=== PATIENT | female | born 1945 | race Caucasian/White ===

== ENCOUNTER 2017-04-20 13:00 | Outpatient (RCR) | payer MEDICARE, OTHER, SELFPAY | END 2017-04-27 23:59 | LOC: DC 13:00 | PROVIDERS: Family Provider Family Medicine; PCP Family Medicine; Visit Provider Family Medicine | DX: E11.9 Type 2 diabetes mellitus without complications (principal); Z71.3 Dietary counseling and surveillance | CPT/HCPCS: 97802; 97803 ==

== ENCOUNTER 2017-04-28 14:50 | Outpatient (RCR) | payer MEDICARE, OTHER, SELFPAY | END 2017-05-28 23:59 | LOC: DC 14:50 | PROVIDERS: Family Provider Family Medicine; PCP Family Medicine; Visit Provider Family Medicine | DX: E11.9 Type 2 diabetes mellitus without complications (principal); Z71.3 Dietary counseling and surveillance | CPT/HCPCS: G0109 ==

== ENCOUNTER 2017-05-03 08:14 | Emergency (ER) | payer MEDICARE, OTHER, SELFPAY ==
[2017-05-03 08:14] VITALS: BP 133/83; PULSE 110; RESP 16; TEMP 36.6; O2SAT 97; BMI 29.5
--- NOTE | 2017-05-03 08:19 | EKG12_ITS ---
Test Reason : GENERAL ILLNESS Blood Pressure : / mmHG Vent. Rate : 096 BPM Atrial Rate : 096 BPM P-R Int : 140 ms QRS Dur : 068 ms QT Int : 360 ms P-R-T Axes : 056 053 057 degrees QTc Int : 454 ms Normal sinus rhythm Nonspecific ST abnormality Abnormal ECG Confirmed by ZACHERY AMEZCUA, KEVIN ([id number]), proposal editor MIGUE JOY ([id number]) on 05/06/2017 2:46:07 PM Referred By: Omar Bryant Confirmed By:KEVIN BINGHAM MD
--- NOTE | 2017-05-03 08:19 | RAD_ITS ---
STUDY: X-RAY CHEST REASON FOR EXAM: Female, 72 years old. Nausea and diaphoresis. TECHNIQUE: Single AP portable view of the chest. COMPARISON: None. FINDINGS: Hyperinflation. There is no demonstrated pleural abnormality. Normal size heart. Normal mediastinum and sangeeta. Normal visualized pulmonary arteries. Normal visualized aortic arch and descending thoracic aorta. There are diffuse degenerative changes of the visualized thoracic spine. Normal visualized ribs, clavicles, and shoulders. There is no demonstrated abnormality of the visualized soft tissue structures of the upper abdomen. RAD/Chest 1 View (Portable) IMPRESSION: Hyperinflation. Electronically Signed: Maximiliano Norris MD at 9:00 EST Tel [phone], Service support ,
--- NOTE | 2017-05-03 08:23 | NURSING ---
NO OLD EKGS
--- NOTE | 2017-05-03 08:32 | ED.VISSUMM ---
- ER Visit Summary Date of Service: 05/03/17 Chief Complaint: [] Vomiting since starting metformin in January History of Present Illness: The patient is a 72 F [] history of diabetes hypertension anxiety back surgery in February. She indicates she basically was started on metformin in January when up to what sounds like 1500 mg's a day she experienced almost immediate sense of vomiting reflux she felt was intolerance to metformin. Her doctor stopped metformin start her on Januvia, she had some was some of the Januvia that was stopped. Then they told her to start the metformin again but at a lower dose she did that and she indicates she has persistent sense of reflux and vomiting she indicates her physicians are not willing to readjust her meds. She has had normal bowel bladder habits. She has no history of GA PE DVT and history of GI elements hepatobiliary dysfunction. Her blood sugars are generally in the appropriate range she has no other past history. She presents because of the persistence of the symptoms Physical Examination: [] Vital signs are unremarkable she is resting comfortably in the bed head neck unremarkable lungs are clear heart tones are normal the abdomen soft nontender upper lower extremities unremarkable neurologically awake moving all 4 Test Results: [] Emergency Department Course and Treatment: [] She has never had a colonoscopy EGD or any type of a GI workup for all the above given her complaints screening labs and studies are obtained IV fluids Zofran Patient studies are all generally unremarkable see those reports potassium was slightly low at 3.0 she was given oral supplements without difficulty IV fluids screening labs generally unremarkable otherwise, CT of the abdomen showed considerable residual fecal material nothing acute see that report There is no signs of DKA her blood sugars about 200 she did stop the metformin about 2 or 3 days ago Conversation with her and her family the patient is indicating that she wants a referral to a new primary care physician as the current position she is seeing she feels is not paying attention to her symptoms and her concerns. At this time she is convinced that the metformin is causing some of her symptoms I explained her there may be other underlying causes if she wants to stop the metformin she should monitor her blood sugar daily, take at least a small dose of metformin if the blood sugar is very high contact her physicians or return to the emergency department should her symptoms change or intensify, in addition she is referred to the diabetic nurse practitioner in the area, and the [place] on-call primary care service , she will consider using high-fiber food prune-juice MiraLAX for the CT finding of considerable fecal material, I further explained her she may require more definitive GI management given all of her complaints and she will pursue that through the new primary care physician she is referred to and does not want a GI referral right now Treatment Plan: [] Disposition: [] Stable home Impression: [] Nausea and vomiting, concern for intolerance to metformin This note was generated with [employer] dictation software. It may contain incorrect words, spelling, and punctuation that were not noted in review of the chart prior to signing ED Disposition - Plan for ED Patient: Chief Complaint: General Illness Referrals: Omar Bryant MD [Primary Care Provider] -
--- NOTE | 2017-05-03 08:37 | CT_ITS ---
STUDY: CT ABDOMEN AND PELVIS WITHOUT CONTRAST REASON FOR EXAM: Female, 72 years old. Nausea and diaphoresis. Difficulty urinating. RADIATION DOSAGE (If Supplied By Facility): CTDIvol = ( 11.02 ) mGy, DLP = ( 506.60 ) mGycm TECHNIQUE: Transaxial images were obtained from the dome of the diaphragm to the symphysis pubis without oral contrast, and without intravenous contrast. Sagittal and coronal images were reconstructed. Individualized dose optimization techniques were used for this CT. COMPARISON: None. FINDINGS: The visualized lung bases are unremarkable. Minimal anterior pericardial thickening. Coronary artery calcification. Normal liver. Normal gallbladder and extrahepatic biliary system. Normal spleen. 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 Normal pancreas. There is a small, circumscribed, smooth, low attenuation left adrenal mass, consistent with an adrenal adenoma. It measures 2.9 sinus by 1.5 cm. Normal right adrenal gland. Normal right kidney. Normal left kidney. Normal visualized stomach. Normal small intestine. There are multiple colonic diverticula consistent with diverticulosis. Moderate amount of fecal material is seen in the colon. The appendix is visualized and appears normal. There is diffuse atherosclerotic calcification of the abdominal aorta and its major visceral branches, without a demonstrated aneurysm. Normal inferior vena cava. Normal retroperitoneum. Normal urinary bladder. Normal abdominal wall. There are diffuse degenerative changes of the visualized lumbar spine. The patient is status post L4-L5 laminectomy and interpedicular screw fixation. CT/Abdomen/Pelvis without Cont IMPRESSION: Minimal anterior pericardial thickening. Sigmoid diverticulosis. Moderate amount of fecal material is seen in the colon. Electronically Signed: Maximiliano Norris MD at 9:39 EST Tel [phone], Service support ,
[2017-05-03] MEDS: Ondansetron 4 MG/2 ML Vial IV (08:43)
[2017-05-03 08:45] LABS: Absolute Lymphocyte Count 1.66 X10^3/ul (0.83-4.51); Basophil# 0.02 X10^3/uL; Basophil% 0.2 % (0-1); Eosinophil# 0.02 X10^3/uL; Eosinophils% 0.2 % (0-5); Hematocrit 37.7 % (37-47); Hemoglobin 13.4 g/dl (12.0-15.0); Lymphocyte # 1.66 X10^3/ul (4.0); Lymphocyte % 15.6 % (19-41); Mean Corp Hgb Conc 35.5 g/gl (32-36); Mean Corpuscular Hgb 31.1 pg (27.0-32.0); Mean Corpuscular Volume 87.5 fL (81-99); Mean Platelet Vol. 10.4 fl (6.2-12.0); Monocyte# 0.94 X10^3/uL; Monocyte% 8.9 % (0-10); Neutrophil # 7.95 X10^3/uL (2.7-7.7); Neutrophil % 74.9 % (47-70); Platelet Count 267 K/mm3 (150-450); RBC Distribution Width CV 12.6 % (11.6-14.6); RBC Distribution Width SD 39.4 fl (35.1-43.9); Red Blood Count 4.31 M/mm3 (4.2-5.4); White Blood Count 10.6 K/mm3 (4.4-11.0)
[2017-05-03 08:46] LABS: POSITIVE COUNT NO; POSITIVE DIFFERENTIAL NO; POSITIVE MORPHOLOGY NO
[2017-05-03 09:00] LABS: AST(SGOT) 10 U/L (15-37); Alanine Aminotransfer ALT/SGPT 14 U/L (13-56); Albumin, Serum 3.5 g/dL (3.2-5.0); Alkaline Phosphatase 33 U/L (45-117); Anion Gap 11 (5-15); BUN 21 mg/dL (7-18); BUN/Creat Ratio 25.8 RATIO (10-20); Bilirubin, Direct 0.13 mg/dL (0.00-0.30); Calcium,Total 8.4 mg/dL (8.5-10.1); Chloride 100 mmol/L (98-107); Creatinine, Serum 0.81 mg/dL (0.55-1.02); EST Glomerular Filtration Rate 74 mL/min (>60); Est Glom Filt Rate - Afr Amer 89 mL/min (>60); Estimated Creatinine Clearance 50.38 ml/min; Globulin 3.8 g/dL (2.2-4.2); Glucose 190 mg/dL (74-106); Lipase 160 U/L (73-393); Protein, Total 7.3 g/dL (6.4-8.2); Sodium Level 136 mmol/L (136-145)
[2017-05-03 09:47] LABS: Mucous, Urine 0 SEEN /hpf (<or=2+); Red Blood Cells-Urine 0 SEEN /hpf (0-5); Squamous Epithelial Cells - UA 0 SEEN /hpf (5-10); White Blood Cells 0 SEEN /hpf (0-5)
[2017-05-03 09:50] LABS: Color, Urine Yellow (Yellow); Glucose, Dipstick Normal (Normal); Ketone-Dipstick 15 mg/dl (Negative); Leukocyte Esterase-Dipstick Negative /ul (Negative); Nitrite-Dipstick Negative (Negative); Occult Blood-Urine Negative /ul (Negative); Protein-Dipstick Negative (Negative); Specific Gravity, Urine 1.005 (1.002-1.030); Urine Bilirubin Dipstick Negative (Negative); Urine Clarity Clear (Clear); Urine Urobilinogen Normal (Normal)
[2017-05-03 10:02] LABS: Bacteria RARE /hpf (None Seen)
[2017-05-03 10:24] VITALS: BP 128/82; PULSE 85; RESP 16; O2SAT 98
--- NOTE | 2017-05-03 11:10 | ED.DEP ---
ED Disposition - Plan for ED Patient: Chief Complaint: General Illness Instructions: ED Diet Vomiting Diarrhea, Abdominal Pain Prescriptions: Ondansetron [Zofran Odt] 4 mg PO Q8H PRN PRN #10 tab PRN Reason: Nausea Referrals: Omar Bryant MD [Primary Care Provider] - Jacey Arcos MD [COURTESY STAFF PHYSICIAN] - Kendra Granger NP-C [Nurse Practitioner] -
== END 2017-05-03 11:50 | disposition home or self-care (01) ==
PROVIDERS: Emergency Provider Emergency Medicine; Family Provider Family Medicine; PCP Family Medicine
DX: R11.2 Nausea with vomiting, unspecified (principal); E11.9 Type 2 diabetes mellitus without complications; I10 Essential (primary) hypertension; F41.9 Anxiety disorder, unspecified; R10.9 Unspecified abdominal pain
CPT/HCPCS: 71045; 74176; 80048; 80076; 81001; 83690; 85025; 93005; 96361; 96374; 99284; J7030; J7040; J2405

== ENCOUNTER 2017-05-05 08:27 | Inpatient (IN) | payer MEDICARE, OTHER, SELFPAY ==
[2017-05-05] VITALS (24 sets, daily range): BP systolic 69–146; BP diastolic 45–102; PULSE 75–112; RESP 14–22; TEMP 36.2–36.7; O2SAT 95–100; BMI 31.1; BMI 30.5
--- NOTE | 2017-05-05 08:42 | EKG12_ITS ---
Test Reason : SYNCOPE Blood Pressure : / mmHG Vent. Rate : 092 BPM Atrial Rate : 092 BPM P-R Int : 136 ms QRS Dur : 072 ms QT Int : 396 ms P-R-T Axes : 068 066 051 degrees QTc Int : 489 ms Normal sinus rhythm Normal ECG Confirmed by ANGELI FLORES ([id number]), development editor MIGUE JOY ([id number]) on 05/09/2017 1:47:00 PM Referred By: Omar Bryant Confirmed By:ANGELI FLORES
--- NOTE | 2017-05-05 08:42 | RAD_ITS ---
STUDY: X-RAY CHEST REASON FOR EXAM: Female, 72 years old. Syncopal episode. Hypotension. TECHNIQUE: Single AP portable view of the chest. COMPARISON: Comparison is made with prior study dated May 03, 2017. FINDINGS: EKG electrodes are seen. Hyperinflation. Scattered calcified granulomas. There is no demonstrated pleural abnormality. Normal size heart. Normal mediastinum and sangeeta. Normal visualized pulmonary arteries. Normal visualized aortic arch and descending thoracic aorta. There are diffuse degenerative changes of the visualized thoracic spine. Normal visualized ribs, clavicles, and shoulders. There is no demonstrated abnormality of the visualized soft tissue structures of the upper abdomen. RAD/Chest 1 View (Portable) IMPRESSION: Hyperinflation. Electronically Signed: Maximiliano Norris MD at 9:08 EST Tel [phone], Service support ,
--- NOTE | 2017-05-05 08:47 | ED.VISSUMM ---
- ER Visit Summary Date of Service: 05/05/17 Chief Complaint: Passed out at home History of Present Illness: The patient is a 72 F past medical history of diabetes and hypertension. Patient was seen 2 days ago in the emergency department had a negative workup. Since she has been home she has had decreased oral intake. She has had some nausea and vomiting. No diarrhea. She was constipated and then has had bowel movements with some blood mixed with her stool. She denies any hematemesis. She denies any headache or chest pain. She denies being short of breath. No fever. No significant abdominal pain. No strokelike symptoms. Today she felt lightheaded and passed out. Thinks it was only brief episode. Called family who came over and brought her to the emergency department. She denies any injuries from the fall. Physical Examination: Older female initial blood pressure 69/45. Heart rate of 112. Afebrile. Pulse ox 95%. She is awake alert. She is answering questions. H EENT exam atraumatic. Pupils are round reactive light. Dry mucous membranes. Neck nontender no lymphadenopathy full range of motion. Lungs clear to auscultation bilaterally. Heart regular rhythm no murmur rate about 100. Chest wall nontender. Abdomen soft nontender. Normal bowel sounds. No peritoneal signs. No pulsatile mass. She is moving all 4 extremities. The neurovascular intact. She has 5 out of 5 attending ambulatory care strength. Nontender no deformities in upper extremities with normal range of motion. She has normal dorsi plantarflexion of both lower extremities are neurovascularly intact with no deformities or tenderness. Normal range of motion. Back exam is nontender. Neurologically she is awake and alert without any focal motor deficits. Test Results: Seizures white count of 14.4 and H&H of 7.9 and 23. 2 days ago her hemoglobin was 13 so she has had a significant blood loss. BMP shows a potassium of 3.1. BUN of 38 and a creatinine of 1. Dehydration and upper GI bleed. Troponin normal. EKG sinus rhythm rate of 92. And chest x-ray shows no acute abnormality. Lactate is elevated also. Emergency Department Course and Treatment: Reviewed the patient's ER evaluation 2 days ago labs, CAT scan x-ray they were basically unremarkable. Treatment Plan: Clinically and by labs the patient has an upper GI bleed. She has black stool on exam. She has been given IV fluids ?2 L. She will be given Protonix IV. And she has been typed and crossed and will be transfused 2 units of packed red blood cells. I spoken both to Dr. Jose Hardin general surgery who is willing to do upper endoscopy on the patient. And also Dr. Wilson the hospitalist who admitted to the ICU. Both Dr. Wilson and myself had long discussions with the patient about admission versus transfer. Disposition: Admission Impression: Acute Syncope Acute GI bleed (upper GI bleed) Acute anemia requiring blood transfusion ?2 units Acute hypotension History of diabetes This note was generated with [employer] dictation software. It may contain incorrect words, spelling, and punctuation that were not noted in review of the chart prior to signing ED Disposition - Plan for ED Patient: Chief Complaint: Syncope Referrals: Omar Bryant MD [Primary Care Provider] -
[2017-05-05] MEDS: 0.9% Normal Saline 1,000 ML 999 ML IV ×2 (08:54)
[2017-05-05 08:57] LABS: Absolute Lymphocyte Count 2.86 X10^3/ul (0.83-4.51); Absolute Neutrophil Count 9.6 X10^3/uL (2.0-7.7); Basophil# 0.02 X10^3/uL; Basophil% 0.1 % (0-1); Eosinophil# 0.05 X10^3/uL; Eosinophils% 0.3 % (0-5); Hemoglobin 7.9 g/dl (12.0-15.0); Lymphocyte # 2.86 X10^3/ul (4.0); Lymphocyte % 19.9 % (19-41); Mean Corp Hgb Conc 34.3 g/gl (32-36); Mean Corpuscular Hgb 30.4 pg (27.0-32.0); Mean Corpuscular Volume 88.5 fL (81-99); Mean Platelet Vol. 10.7 fl (6.2-12.0); Monocyte# 1.79 X10^3/uL; Monocyte% 12.5 % (0-10); Neutrophil # 9.61 X10^3/uL (2.7-7.7); Neutrophil % 66.9 % (47-70); Platelet Count 228 K/mm3 (150-450); RBC Distribution Width CV 13.2 % (11.6-14.6); RBC Distribution Width SD 42.7 fl (35.1-43.9); White Blood Count 14.4 K/mm3 (4.4-11.0)
[2017-05-05 08:58] LABS: Differential Indicated SCAN CRITERIA MET; POSITIVE COUNT NO; POSITIVE DIFFERENTIAL YES; POSITIVE MORPHOLOGY NO
[2017-05-05 09:07] LABS: Anion Gap 12 (5-15); BUN 38 mg/dL (7-18); BUN/Creat Ratio 36.9 RATIO (10-20); Calcium,Total 7.8 mg/dL (8.5-10.1); Chloride 104 mmol/L (98-107); Creatinine, Serum 1.03 mg/dL (0.55-1.02); EST Glomerular Filtration Rate 56 mL/min (>60); Est Glom Filt Rate - Afr Amer 68 mL/min (>60); Estimated Creatinine Clearance 39.62 ml/min; Glucose 239 mg/dL (74-106); Potassium 3.1 mmol/L (3.5-5.1); Sodium Level 139 mmol/L (136-145)
[2017-05-05 09:24] LABS: Lactic Acid 3.3 mmol/L (0.4-2.0)
--- NOTE | 2017-05-05 10:14 | PCM.HP.STD ---
Problem List (1) Upper GI bleed Status: Acute (2) Acute blood loss anemia Status: Acute (3) HTN (hypertension) Status: Chronic (4) Hyperlipidemia Status: Chronic (5) DM2 (diabetes mellitus, type 2) Status: Chronic (6) Hemorrhagic shock Status: Acute (7) Syncope Status: Acute History of Present Illness Date of Admission: 05/05/17 Chief Complaint: melena The patient is a 72 year old F who has not been feeling well for the past few weeks. Patient is been having vomiting during this time. Presented to the emergency room on the 6 where she had a CAT scan of her abdomen pelvis that showed no acute process. Patient in hemoglobin at that time that was 10.4. Patient was not having any hematochezia nor melena. Over the past days since then patient has been having donte melena patient noted some blood-tinged in the bowl and patient did have a syncopal episode upon standing. Patient presented to the emergency room and hemoglobin is now 7.9, patient was hypotensive with pressure of 69/45 and patient had a lactic acid of 2.3. Patient denies any history of melena or GI bleed before. Patient denies any hematemesis nor any other bleeding diatheses. No bruising problems. Patient states that she does take 2 Naprosyn during the day and then Advil PM at night. Dr. Sutton, of general surgery was contacted through the emergency room and said they would be happy to see the patient on consultation and plan is for an EGD on the . [] Past Medical History Past Medical History (Chronic Problems): Chronic Problems HTN (hypertension) (Chronic) Hyperlipidemia (Chronic) DM2 (diabetes mellitus, type 2) (Chronic) Allergies No Known Allergies Allergy (Verified 05/05/17 08:28) Home Medications: Ambulatory Orders Medication Instructions Recorded Atenolol [Tenormin (Beta Denia)] 50 mg PO DAILY 05/03/17 Citalopram [Celexa] 20 mg PO DAILY 05/03/17 Gabapentin [Neurontin] 100 mg PO BID 05/03/17 Hydrochlorothiazide 12.5 mg PO DAILY 05/03/17 Lorazepam [Ativan] 0.5 mg PO TID 05/03/17 Potassium Chloride [Klor-Con 10 meq PO 05/03/17 Sprinkle] Sitagliptin Phosphate [Januvia] 100 mg PO DAILY 05/03/17 Zolpidem Tartrate [Ambien] 10 mg PO DAILY 05/03/17 Psychiatric History: No pertinent psych hx Smoking Status: Light Smoker (<10/day) Tobacco Use: Cigarettes Alcohol: None Drugs: None - *Family History Maternal History Items: - - No coronary artery disease Review of Systems Constitutional: Denies: Chills, Fever, Weight Change Eyes: Denies: Blurred vision, Double vision HEENT: Denies: Head Aches, Sinus Congestion, Sinus Drainage Cardiovascular: Denies: Chest Pain, Palpitations Respiratory: Denies: Cough, Shortness of breath at rest, Sputum production Gastrointestinal: Reports: Nausea, Melena, Vomiting. Denies: Abdominal Pain Genitourinary: Denies: Dysuria, Hematuria Musculoskeletal: Denies: Joint Pain, Joint Tenderness Skin: Denies: Rash, Wounds Neurological: Reports: - - Syncope. Denies: Focal weakness, Numbness, Tingling Psychiatric: Denies: Anxiety, Depression Endocrine: Denies: Change in Body Habitus, Heat/ Cold Intolerance Hematologic/ Lymphatic: Denies: Easy Bruising, Easy Bleeding, Hx of blood clot VTE Information - Inpt Only VTE Present on Admission: No VTE Mechan Device Prophylaxis: SCD's VTE Pharm Prophylaxis ordered?: No Reason prophylaxis not ordered:: Medical Contraindication Patient Problems: Active and Suspected Problems Upper GI bleed (Acute) Acute blood loss anemia (Acute) Hemorrhagic shock (Acute) Syncope (Acute) - Physical Exam General: Alert, Cooperative, No apparent distress HEENT: Atraumatic, Normocephalic Oral: Moist Mucosa, No Gingival or Mucosal Lesions/ Ulcerations Neck: No Nodes, Thyroid Normal Size and Texture Lungs: Clear to auscultation, Normal air movement, No rhonchi, No wheeze Cardiovascular: Regular rate, Regular Rhythm, Normal S1, Normal S2, No murmurs Abdomen: Bowel Sounds Present, Soft, Non Tender, Non-Distended, No Hepato-splenomegaly, Passing Flatus Extremities: No clubbing, No cyanosis, No edema, No Calf Tenderness Skin: No rashes, No breakdown Musculoskeletal: No Tenderness to Palpation of Joints or Extremities, No Muscle Wasting Neurological: Neuro grossly intact, Sensory exam intact to light touch and pain, Coordination normal Psych/Mental Status: Normal Affect, Appropriate Vital Signs Temp Pulse Resp BP Pulse Ox 36.4 C L 91 19 H 92/59 L 100 05/05/17 08:28 05/05/17 09:38 05/05/17 09:38 05/05/17 09:38 05/05/17 09:38 Oxygen Flow Rate (L/min) 2 Oxygen Delivery Method Nasal Cannula Weight: 77.111 kg Body Mass Index (BMI) 31.1 Laboratory Tests Past 24 Hrs 05/05/17 05/05/17 05/05/17 08:35 08:40 08:40 WBC 14.4 H RBC 2.60 L Hgb 7.9 L Hct 23.0 L MCV 88.5 MCH 30.4 MCHC 34.3 RDW 13.2 RDW Differential 42.7 Plt Count 228 MPV 10.7 Immature Gran % (Auto) 0.300 Neut % (Auto) 66.9 Lymph % (Auto) 19.9 Lyon % (Auto) 12.5 H Eos % (Auto) 0.3 Baso % (Auto) 0.1 Absolute Neuts (auto) 9.6 H Absolute Lymphs (auto) 2.86 Total Counted Not Reportable Differential Comment COMMENT Diff Path Review May foll Sodium 139 Potassium 3.1 L Chloride 104 Carbon Dioxide 23.0 Anion Gap 12 BUN 38 H Creatinine 1.03 H Estim Creat Clear Calc 39.62 Est GFR (MDRD) Af Amer 68 Est GFR (MDRD) Non-Af 56 L BUN/Creatinine Ratio 36.9 H Glucose 239 H Lactic Acid Calcium 7.8 L Troponin I < 0.02 Blood Type Pending Antibody Screen Pending Crossmatch See Detail 05/05/17 08:40 WBC RBC Hgb Hct MCV MCH MCHC RDW RDW Differential Plt Count MPV Immature Gran % (Auto) Neut % (Auto) Lymph % (Auto) Lyon % (Auto) Eos % (Auto) Baso % (Auto) Absolute Neuts (auto) Absolute Lymphs (auto) Total Counted Differential Comment Diff Path Review Sodium Potassium Chloride Carbon Dioxide Anion Gap BUN Creatinine Estim Creat Clear Calc Est GFR (MDRD) Af Amer Est GFR (MDRD) Non-Af BUN/Creatinine Ratio Glucose Lactic Acid 3.3 H Calcium Troponin I Blood Type Antibody Screen Crossmatch Assessment/Plan Active and Suspected Problems Upper GI bleed (Acute) Acute blood loss anemia (Acute) Hemorrhagic shock (Acute) Syncope (Acute) 1. Suspected upper GI bleed My suspicion is that may be a Kyleigh-Haynes tear the patient's recent vomiting but also could be peptic ulcer disease given the patient's utilization of 2 different NSAIDs. Protonix IV discussed with Dr. Sutton, plan is for EGD on the but may have to expedite that patient has active bleeding. I informed the patient and her family that I suspect is upper GI bleed but I cannot rule out a lower bleed though I do not feel that her diverticulosis is causing bleeding given that it is melena. I explained to him that that if something would happen the middle night the possible specialist may not be of be there as readily as it would add some other institutions and if it was a lower GI bleed we do not have the capacity to embolization of bleeding vessels. They stated that they are satisfied with staying here at this time. 2. Acute blood loss anemia Secondary to above Follow-up hemoglobins. Patient has been typed and crossed in the emergency room. 3. Hemorrhagic shock Patient did receive IV fluids in the emergency room which has improved her blood pressure Lactic acidosis is due to the shock Continue with IV fluids and monitor. Patient will be admitted to the ICU 4. DVT prophylaxis with SCDs. Prophylaxis is contraindicated in light of the acute blood loss anemia. Code Visit Inpatient E&M: 04796 Init Hosp L3
--- NOTE | 2017-05-05 10:24 | HP.PCM_ITS ---
Problem List (1) Upper GI bleed Status: Acute (2) Acute blood loss anemia Status: Acute (3) HTN (hypertension) Status: Chronic (4) Hyperlipidemia Status: Chronic (5) DM2 (diabetes mellitus, type 2) Status: Chronic (6) Hemorrhagic shock Status: Acute (7) Syncope Status: Acute History of Present Illness Date of Admission: 05/05/17 Chief Complaint: melena The patient is a 72 year old F who has not been feeling well for the past few weeks. Patient is been having vomiting during this time. Presented to the emergency room on the 6 where she had a CAT scan of her abdomen pelvis that showed no acute process. Patient in hemoglobin at that time that was 10.4. Patient was not having any hematochezia nor melena. Over the past days since then patient has been having donte melena patient noted some blood-tinged in the bowl and patient did have a syncopal episode upon standing. Patient presented to the emergency room and hemoglobin is now 7.9, patient was hypotensive with pressure of 69/45 and patient had a lactic acid of 2.3. Patient denies any history of melena or GI bleed before. Patient denies any hematemesis nor any other bleeding diatheses. No bruising problems. Patient states that she does take 2 Naprosyn during the day and then Advil PM at night. Dr. Sutton, of general surgery was contacted through the emergency room and said they would be happy to see the patient on consultation and plan is for an EGD on the . [] Past Medical History Past Medical History (Chronic Problems): Chronic Problems HTN (hypertension) (Chronic) Hyperlipidemia (Chronic) DM2 (diabetes mellitus, type 2) (Chronic) Allergies No Known Allergies Allergy (Verified 05/05/17 08:28) Home Medications: Ambulatory Orders Medication Instructions Recorded Atenolol [Tenormin (Beta Denia)] 50 mg PO DAILY 05/03/17 Citalopram [Celexa] 20 mg PO DAILY 05/03/17 Gabapentin [Neurontin] 100 mg PO BID 05/03/17 Hydrochlorothiazide 12.5 mg PO DAILY 05/03/17 Lorazepam [Ativan] 0.5 mg PO TID 05/03/17 Potassium Chloride [Klor-Con 10 meq PO 05/03/17 Sprinkle] Sitagliptin Phosphate [Januvia] 100 mg PO DAILY 05/03/17 Zolpidem Tartrate [Ambien] 10 mg PO DAILY 05/03/17 Psychiatric History: No pertinent psych hx Smoking Status: Light Smoker (<10/day) Tobacco Use: Cigarettes Alcohol: None Drugs: None - *Family History Maternal History Items: - - No coronary artery disease Review of Systems Constitutional: Denies: Chills, Fever, Weight Change Eyes: Denies: Blurred vision, Double vision HEENT: Denies: Head Aches, Sinus Congestion, Sinus Drainage Cardiovascular: Denies: Chest Pain, Palpitations Respiratory: Denies: Cough, Shortness of breath at rest, Sputum production Gastrointestinal: Reports: Nausea, Melena, Vomiting. Denies: Abdominal Pain Genitourinary: Denies: Dysuria, Hematuria Musculoskeletal: Denies: Joint Pain, Joint Tenderness Skin: Denies: Rash, Wounds Neurological: Reports: - - Syncope. Denies: Focal weakness, Numbness, Tingling Psychiatric: Denies: Anxiety, Depression Endocrine: Denies: Change in Body Habitus, Heat/ Cold Intolerance Hematologic/ Lymphatic: Denies: Easy Bruising, Easy Bleeding, Hx of blood clot VTE Information - Inpt Only VTE Present on Admission: No VTE Mechan Device Prophylaxis: SCD's VTE Pharm Prophylaxis ordered?: No Reason prophylaxis not ordered:: Medical Contraindication Patient Problems: Active and Suspected Problems Upper GI bleed (Acute) Acute blood loss anemia (Acute) Hemorrhagic shock (Acute) Syncope (Acute) - Physical Exam General: Alert, Cooperative, No apparent distress HEENT: Atraumatic, Normocephalic Oral: Moist Mucosa, No Gingival or Mucosal Lesions/ Ulcerations Neck: No Nodes, Thyroid Normal Size and Texture Lungs: Clear to auscultation, Normal air movement, No rhonchi, No wheeze Cardiovascular: Regular rate, Regular Rhythm, Normal S1, Normal S2, No murmurs Abdomen: Bowel Sounds Present, Soft, Non Tender, Non-Distended, No Hepato- splenomegaly, Passing Flatus Extremities: No clubbing, No cyanosis, No edema, No Calf Tenderness Skin: No rashes, No breakdown Musculoskeletal: No Tenderness to Palpation of Joints or Extremities, No Muscle Wasting Neurological: Neuro grossly intact, Sensory exam intact to light touch and pain , Coordination normal Psych/Mental Status: Normal Affect, Appropriate Vital Signs Temp Pulse Resp BP Pulse Ox 36.4 C L 91 19 H 92/59 L 100 05/05/17 08:28 05/05/17 09:38 05/05/17 09:38 05/05/17 09:38 05/05/17 09:38 Oxygen Flow Rate (L/min) 2 Oxygen Delivery Method Nasal Cannula Weight: 77.111 kg Body Mass Index (BMI) 31.1 Laboratory Tests Past 24 Hrs 05/05/17 05/05/17 05/05/17 08:35 08:40 08:40 WBC 14.4 H RBC 2.60 L Hgb 7.9 L Hct 23.0 L MCV 88.5 MCH 30.4 MCHC 34.3 RDW 13.2 RDW Differential 42.7 Plt Count 228 MPV 10.7 Immature Gran % (Auto) 0.300 Neut % (Auto) 66.9 Lymph % (Auto) 19.9 [place] % (Auto) 12.5 H Eos % (Auto) 0.3 Baso % (Auto) 0.1 Absolute Neuts (auto) 9.6 H Absolute Lymphs (auto) 2.86 Total Counted Not Reportable Differential Comment COMMENT Diff Path Review May foll Sodium 139 Potassium 3.1 L Chloride 104 Carbon Dioxide 23.0 Anion Gap 12 BUN 38 H Creatinine 1.03 H Estim Creat Clear Calc 39.62 Est GFR (MDRD) Af Amer 68 Est GFR (MDRD) Non-Af 56 L BUN/Creatinine Ratio 36.9 H Glucose 239 H Lactic Acid Calcium 7.8 L Troponin I < 0.02 Blood Type Pending Antibody Screen Pending Crossmatch See Detail 05/05/17 08:40 WBC RBC Hgb Hct MCV MCH MCHC RDW RDW Differential Plt Count MPV Immature Gran % (Auto) Neut % (Auto) Lymph % (Auto) [place] % (Auto) Eos % (Auto) Baso % (Auto) Absolute Neuts (auto) Absolute Lymphs (auto) Total Counted Differential Comment Diff Path Review Sodium Potassium Chloride Carbon Dioxide Anion Gap BUN Creatinine Estim Creat Clear Calc Est GFR (MDRD) Af Amer Est GFR (MDRD) Non-Af BUN/Creatinine Ratio Glucose Lactic Acid 3.3 H Calcium Troponin I Blood Type Antibody Screen Crossmatch Assessment/Plan Active and Suspected Problems Upper GI bleed (Acute) Acute blood loss anemia (Acute) Hemorrhagic shock (Acute) Syncope (Acute) 1. Suspected upper GI bleed * My suspicion is that may be a Kyleigh-Haynes tear the patient's recent vomiting but also could be peptic ulcer disease given the patient's utilization of 2 different NSAIDs. * Protonix IV discussed with Dr. Sutton, plan is for EGD on the but may have to expedite that patient has active bleeding. * I informed the patient and her family that I suspect is upper GI bleed but I cannot rule out a lower bleed though I do not feel that her diverticulosis is causing bleeding given that it is melena. I explained to him that that if something would happen the middle night the possible specialist may not be of be there as readily as it would add some other institutions and if it was a lower GI bleed we do not have the capacity to embolization of bleeding vessels. They stated that they are satisfied with staying here at this time. 2. Acute blood loss anemia * Secondary to above * Follow-up hemoglobins. Patient has been typed and crossed in the emergency room. 3. Hemorrhagic shock * Patient did receive IV fluids in the emergency room which has improved her blood pressure * Lactic acidosis is due to the shock * Continue with IV fluids and monitor. * Patient will be admitted to the ICU 4. DVT prophylaxis with SCDs. Prophylaxis is contraindicated in light of the acute blood loss anemia. Code Visit Inpatient E&M: 93966 Init Hosp L3
[2017-05-05 11:07] LABS: International Normalized Ratio 1.2; Prothrombin Time (Protime)PT. 15.5 SECONDS (11.7-14.9)
[2017-05-05] MEDS: 0.9% NaCl IVPB Med Flush (250 mL) 15 ML IV (11:12)
[2017-05-05] MEDS: 0.9% Normal Saline 1,000 ML 150 ML IV ×3 (11:12→23:53)
--- NOTE | 2017-05-05 11:13 | PCM.CON.CC ---
Problem List (1) Tobacco abuse Status: Chronic (2) Upper GI bleed Status: Acute (3) Acute blood loss anemia Status: Acute (4) HTN (hypertension) Status: Chronic Qualifiers: Hypertension type: essential hypertension Qualified Code(s): I10 - Essential (primary) hypertension (5) Hyperlipidemia Status: Chronic Qualifiers: Hyperlipidemia type: pure hypercholesterolemia Qualified Code(s): E78.00 - Pure hypercholesterolemia, unspecified; E78.0 - Pure hypercholesterolemia (6) DM2 (diabetes mellitus, type 2) Status: Chronic Qualifiers: Diabetes mellitus complication status: with unspecified complications Diabetes mellitus alf insulin use: without alf use Qualified Code(s): E11.8 - Type 2 diabetes mellitus with unspecified complications (7) Syncope Status: Acute Qualifiers: Syncope type: vasovagal syncope Qualified Code(s): R55 - Syncope and collapse Reason for Consult Date of Consultation: 05/05/17 Reason for Consultation: Acute blood loss anemia History of Present Illness: The patient is a 72 year old F, with past medical history listed below, who presented to [facility] on 05/05/2017 secondary to a syncopal event. Patient had been seen 2 days prior in the emergency room with concerns for metformin toxicity. Patient reported that she had developed some nausea and vomiting at that time, but no diarrhea. Patient was given supportive care and discharged home. Patient presented today following a syncopal event that she believes was only brief. Family was contacted and urged her to come to the emergency room for evaluation. Patient has reported nausea and vomiting, but no hematemesis. Patient has noted some darker stools recently over the last 2 days. On presentation to the emergency room, patient was initially noted to have a blood pressure of 69/45 with a heart rate of 112 bpm. Patient was noted to have dry mucous membranes with a nonfocal neurologic exam. Lab work showed a 5 g drop in hemoglobin over the last 2 days and a low potassium of 3.1. Creatinine was slightly increased compared to previous. Chest x-ray showed no acute abnormality. Patient was noted to have an elevated lactate. Patient received 2 hours of IV fluid with significant improvement in blood pressure and symptomatology. Patient was also given IV Protonix and Dr. Sutton was contacted for an upper GI. Patient was then transported to the intensive care unit for further monitoring. She denies any previous history of GI bleed. Patient does report that she regularly uses 2 Aleve every morning and 2 Advil PM every evening secondary to chronic back pain. Patient states this does control her symptoms. Patient also reports a long smoking history, but is never seen a associate account executive or had pulmonary function testing. Patient has never been admitted for breathing issues previously. Patient reports that she was recently diagnosed with diabetes and has a hemoglobin A1c of 7.9. Patient has been titrating up her metformin and recently was placed on 1.5 g. Past Medical History Past Medical History (Chronic Problems): Chronic Problems HTN (hypertension) (Chronic) Hyperlipidemia (Chronic) DM2 (diabetes mellitus, type 2) (Chronic) Tobacco abuse (Chronic) Allergies No Known Allergies Allergy (Verified 05/05/17 08:28) Home Medications: Ambulatory Orders Medication Instructions Recorded Atenolol [Tenormin (Beta Denia)] 50 mg PO DAILY 05/03/17 Citalopram [Celexa] 20 mg PO DAILY 05/03/17 Gabapentin [Neurontin] 100 mg PO BID 05/03/17 Hydrochlorothiazide 12.5 mg PO DAILY 05/03/17 Lorazepam [Ativan] 0.5 mg PO TID 05/03/17 Potassium Chloride [Klor-Con 10 meq PO 05/03/17 Sprinkle] Sitagliptin Phosphate [Januvia] 100 mg PO DAILY 05/03/17 Zolpidem Tartrate [Ambien] 10 mg PO DAILY 05/03/17 Psychiatric History: No pertinent psych hx Smoking Status: Light Smoker (<10/day) Tobacco Use: Cigarettes Alcohol: None Drugs: None - *Family History Maternal History Items: - - No coronary artery disease Review of Systems Constitutional: Reports: Malaise, Weakness, Fatigue. Denies: Anorexia, Chills, Fever, Night Sweats Eyes: Denies: Blurred vision, Cataracts, Double vision, Drainage, Eyelid Inflammation, Pain, Redness HEENT: Reports: Head Aches. Denies: Difficulty Hearing, Difficulty Swallowing, Dysphasia, Ear Pain, Hard of Hearing, Nasal bleeding, Nasal Congestion, Post Nasal Drip, Sinus Congestion, Sore Throat Cardiovascular: Reports: Syncope. Denies: Chest Pain, Chest Pressure, Chest Tightness, Edema, Heaviness, Orthopnea, Palpitations Respiratory: Denies: Cough, Pleuritic Pain, Shortness of Breath, Sputum production, Wheezing Gastrointestinal: Reports: Constipation, Nausea, Vomiting, - - Black stools noted. Denies: Hematemesis, Hematochezia Genitourinary: Denies: Dysuria, Hematuria, Hesitancy, Incontinence, Retention Gynecological: Denies: Breast symptoms, Excessively long or heavy periods Musculoskeletal: Denies: Joint stiffness, Joint swelling, Joint Tenderness Skin: Denies: Dryness, Lesions Neurological: Denies: Balance problems, Double vision, Change in Speech, Slurred speech, Confusion, Focal weakness, Incoordination, Tingling Psychiatric: Denies: Anxiety, Depression, Homicidal Ideations, Suicidal Ideations Endocrine: Denies: Change in Body Habitus, Heat/ Cold Intolerance, Polydipsia Hematologic/ Lymphatic: Denies: Adenopathy, Easy Bruising, Hx of blood clot Comment: Review of systems otherwise negative ?10 systems. Patient Problems: Active and Suspected Problems Upper GI bleed (Acute) Acute blood loss anemia (Acute) Hemorrhagic shock (Acute) Syncope (Acute) Objective: X-ray was personally reviewed and shows no acute infiltrates. - Physical Exam General: Alert, Oriented x3, Cooperative, - - Mild distress. Appears stated age. Obese. Appears pale. HEENT: Atraumatic, PERRLA, EOMI, Normocephalic, - - Pale conjunctiva Oral: No Gingival or Mucosal Lesions/ Ulcerations, Dry Mucosa Neck: Supple, No JVD, No Nodes, Trachea Midline Lungs: Clear to auscultation, No rhonchi, No wheeze, No rales, - - Symmetric expansion. Cardiovascular: Regular rate, Regular Rhythm, Normal S1, Normal S2, No murmurs, No rub noted, No Gallop Abdomen: Bowel Sounds Present, Soft, Non Tender, Non-Distended, Obese Extremities: No clubbing, No cyanosis, No edema, Capillary Refill Less than 3 Seconds Skin: No rashes, No breakdown Musculoskeletal: No Tenderness to Palpation of Joints or Extremities, No Muscle Wasting Lymphatic: No Cervical, Supraclavicular, or Inguinal Adenopathy Neurological: Cranial nerves II-XII grossly intact, Neuro grossly intact, Motor Exam 5/5 strength throughout, Sensory exam intact to light touch and pain Psych/Mental Status: Alert and oriented to time, place, person, mood and affect Vital Signs Temp Pulse Resp BP Pulse Ox 36.4 C L 88 21 H 86/65 L 100 03/08/18 08:28 05/05/17 10:13 05/05/17 10:13 05/05/17 10:13 05/05/17 10:13 Laboratory Tests 05/05/17 05/05/17 05/05/17 08:35 08:40 08:40 WBC 14.4 H RBC 2.60 L Hgb 7.9 L Hct 23.0 L MCV 88.5 MCH 30.4 MCHC 34.3 RDW 13.2 RDW Differential 42.7 Plt Count 228 MPV 10.7 Immature Gran % (Auto) 0.300 Neut % (Auto) 66.9 Lymph % (Auto) 19.9 [place] % (Auto) 12.5 H Eos % (Auto) 0.3 Baso % (Auto) 0.1 Absolute Neuts (auto) 9.6 H Absolute Lymphs (auto) 2.86 Total Counted Not Reportable Differential Comment COMMENT Diff Path Review May foll PT INR Specimen Type VBG pH VBG pO2 VBG O2 Sat (Calc) VBG O2 Content VBG Base Excess POC Mix VBG pCO2 Pt Tmp Blood Gas Notified Whom Blood Gas Notified Time Sodium 139 Potassium 3.1 L Chloride 104 Carbon Dioxide 23.0 Anion Gap 12 BUN 38 H Creatinine 1.03 H Estim Creat Clear Calc 39.62 Est GFR (MDRD) Af Amer 68 Est GFR (MDRD) Non-Af 56 L BUN/Creatinine Ratio 36.9 H Glucose 239 H Lactic Acid Calcium 7.8 L Troponin I < 0.02 Blood Type A NEGATIVE Antibody Screen NEGATIVE Crossmatch See Detail 05/05/17 05/05/17 05/05/17 08:40 08:40 11:10 WBC 12.9 H RBC 2.27 L Hgb 7.1 L Hct 20.5 L MCV 90.3 MCH 31.3 MCHC 34.6 RDW 12.7 RDW Differential 39.1 Plt Count 187 MPV 10.8 Immature Gran % (Auto) 0.300 Neut % (Auto) 81.8 H Lymph % (Auto) 10.2 L [place] % (Auto) 7.4 Eos % (Auto) 0.2 Baso % (Auto) 0.1 Absolute Neuts (auto) 10.5 H Absolute Lymphs (auto) 1.31 Total Counted Not Reportable Differential Comment Diff Path Review PT 15.5 H INR 1.2 Specimen Type VBG pH VBG pO2 VBG O2 Sat (Calc) VBG O2 Content VBG Base Excess POC Mix VBG pCO2 Pt Tmp Blood Gas Notified Whom Blood Gas Notified Time Sodium Potassium Chloride Carbon Dioxide Anion Gap BUN Creatinine Estim Creat Clear Calc Est GFR (MDRD) Af Amer Est GFR (MDRD) Non-Af BUN/Creatinine Ratio Glucose Lactic Acid 3.3 H Calcium Troponin I Blood Type Antibody Screen Crossmatch 05/05/17 11:22 WBC RBC Hgb Hct MCV MCH MCHC RDW RDW Differential Plt Count MPV Immature Gran % (Auto) Neut % (Auto) Lymph % (Auto) [place] % (Auto) Eos % (Auto) Baso % (Auto) Absolute Neuts (auto) Absolute Lymphs (auto) Total Counted Differential Comment Diff Path Review PT INR Specimen Type JOANIE VBG pH 7.30 L VBG pO2 141 H VBG O2 Sat (Calc) 99 H VBG O2 Content 25 VBG Base Excess -3 L POC Mix VBG pCO2 Pt Tmp 47.9 Blood Gas Notified Whom [facility] Blood Gas Notified Time 1121 Sodium Potassium Chloride Carbon Dioxide Anion Gap BUN Creatinine Estim Creat Clear Calc Est GFR (MDRD) Af Amer Est GFR (MDRD) Non-Af BUN/Creatinine Ratio Glucose Lactic Acid Calcium Troponin I Blood Type Antibody Screen Crossmatch Clinical Impression(s) from Imaging Studies Chest X-Ray 05/05/17 08:42 IMPRESSION: Hyperinflation. Electronically Signed: Maximiliano Norris MD at 9:08 EST Tel [phone], Service support , Assessment/Plan Active and Suspected Problems Upper GI bleed (Acute) Acute blood loss anemia (Acute) Hemorrhagic shock (Acute) Syncope (Acute) RECOMMENDATIONS: 1. Transfusions as ordered 2. H&H every 6 hours, obtain coagulation studies now 3. Fluid boluses as necessary 4. Repeat lactate, blood sugar checks with sliding scale insulin 5. Bronchodilators as needed, hold all home NSAIDs IMPRESSIONS: 1. Hemorrhagic shock secondary to suspected upper GI bleed Exact etiology is unclear at this time. Patient has had no hematemesis, so clinical suspicion is for duodenal ulcer with bleeding. Current H&H is 5 g below 2 days ago indicating significant bleeding. Will obtain regulation studies to make sure patient does not have a consumptive coagulopathy. Repeat H&H's every 6 hours until EGD. Patient is on IV Protonix. 2. Acute blood loss anemia secondary to suspected upper GI bleed Patient with significant drop in hemoglobin over the last 2 days. However, patient is not reporting hematemesis or hematochezia. Will continue to monitor closely with H&H's. Did discuss with surgery and patient can be emergently scoped if necessary, but currently EGD is planned for tomorrow around 10 AM. Patient has no anabaptism convictions against blood transfusions. Will attempt to keep hemoglobin greater than 8. 3. Acute kidney injury/hypokalemia Likely prerenal etiology. Patient has received fluid with good response in blood pressure. We will continue to monitor closely. Potassium supplementation as indicated. 4. Advanced age/long smoking history/diabetes mellitus Patient does have an element of hyperinflation noted on chest x-ray. Patient may benefit from aerosol therapy if shortness of breath develops. Will hold diabetic medications. Patient can continue on sliding scale insulin with blood sugar checks. Patient would likely benefit from outpatient complete pulmonary function test. Code Visit Inpatient E&M: 98040 Init Hosp L3
[2017-05-05 11:20] LABS: Absolute Lymphocyte Count 1.31 X10^3/ul (0.83-4.51); Absolute Neutrophil Count 10.5 X10^3/uL (2.0-7.7); Basophil# 0.01 X10^3/uL; Basophil% 0.1 % (0-1); Eosinophil# 0.02 X10^3/uL; Eosinophils% 0.2 % (0-5); Hematocrit 20.5 % (37-47); Hemoglobin 7.1 g/dl (12.0-15.0); Lymphocyte # 1.31 X10^3/ul (4.0); Lymphocyte % 10.2 % (19-41); Mean Corp Hgb Conc 34.6 g/gl (32-36); Mean Corpuscular Hgb 31.3 pg (27.0-32.0); Mean Corpuscular Volume 90.3 fL (81-99); Mean Platelet Vol. 10.8 fl (6.2-12.0); Monocyte# 0.95 X10^3/uL; Monocyte% 7.4 % (0-10); Neutrophil # 10.52 X10^3/uL (2.7-7.7); Neutrophil % 81.8 % (47-70); Platelet Count 187 K/mm3 (150-450); RBC Distribution Width CV 12.7 % (11.6-14.6); RBC Distribution Width SD 39.1 fl (35.1-43.9); Red Blood Count 2.27 M/mm3 (4.2-5.4); White Blood Count 12.9 K/mm3 (4.4-11.0)
[2017-05-05 11:21] LABS: POSITIVE COUNT NO; POSITIVE DIFFERENTIAL NO; POSITIVE MORPHOLOGY NO
--- NOTE | 2017-05-05 11:25 | CON.PCM_ITS ---
Problem List (1) Tobacco abuse Status: Chronic (2) Upper GI bleed Status: Acute (3) Acute blood loss anemia Status: Acute (4) HTN (hypertension) Status: Chronic Qualifiers: Hypertension type: essential hypertension Qualified Code(s): I10 - Essential (primary) hypertension (5) Hyperlipidemia Status: Chronic Qualifiers: Hyperlipidemia type: pure hypercholesterolemia Qualified Code(s): E78.00 - Pure hypercholesterolemia, unspecified; E78.0 - Pure hypercholesterolemia (6) DM2 (diabetes mellitus, type 2) Status: Chronic Qualifiers: Diabetes mellitus complication status: with unspecified complications Diabetes mellitus alf insulin use: without alf use Qualified Code( s): E11.8 - Type 2 diabetes mellitus with unspecified complications (7) Syncope Status: Acute Qualifiers: Syncope type: vasovagal syncope Qualified Code(s): R55 - Syncope and collapse Reason for Consult Date of Consultation: 05/05/17 Reason for Consultation: Acute blood loss anemia History of Present Illness: The patient is a 72 year old F, with past medical history listed below, who presented to [facility] on 05/05/2017 secondary to a syncopal event. Patient had been seen 2 days prior in the emergency room with concerns for metformin toxicity. Patient reported that she had developed some nausea and vomiting at that time, but no diarrhea. Patient was given supportive care and discharged home. Patient presented today following a syncopal event that she believes was only brief. Family was contacted and urged her to come to the emergency room for evaluation. Patient has reported nausea and vomiting, but no hematemesis. Patient has noted some darker stools recently over the last 2 days. On presentation to the emergency room, patient was initially noted to have a blood pressure of 69/45 with a heart rate of 112 bpm. Patient was noted to have dry mucous membranes with a nonfocal neurologic exam. Lab work showed a 5 g drop in hemoglobin over the last 2 days and a low potassium of 3.1. Creatinine was slightly increased compared to previous. Chest x-ray showed no acute abnormality. Patient was noted to have an elevated lactate. Patient received 2 hours of IV fluid with significant improvement in blood pressure and symptomatology. Patient was also given IV Protonix and Dr. Sutton was contacted for an upper GI. Patient was then transported to the intensive care unit for further monitoring. She denies any previous history of GI bleed. Patient does report that she regularly uses 2 Aleve every morning and 2 Advil PM every evening secondary to chronic back pain. Patient states this does control her symptoms. 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 Patient has never been admitted for breathing issues previously. Patient reports that she was recently diagnosed with diabetes and has a hemoglobin A1c of 7.9. Patient has been titrating up her metformin and recently was placed on 1.5 g. Past Medical History Past Medical History (Chronic Problems): Chronic Problems HTN (hypertension) (Chronic) Hyperlipidemia (Chronic) DM2 (diabetes mellitus, type 2) (Chronic) Tobacco abuse (Chronic) Allergies No Known Allergies Allergy (Verified 05/05/17 08:28) Home Medications: Ambulatory Orders Medication Instructions Recorded Atenolol [Tenormin (Beta Denia)] 50 mg PO DAILY 05/03/17 Citalopram [Celexa] 20 mg PO DAILY 05/03/17 Gabapentin [Neurontin] 100 mg PO BID 05/03/17 Hydrochlorothiazide 12.5 mg PO DAILY 05/03/17 Lorazepam [Ativan] 0.5 mg PO TID 05/03/17 Potassium Chloride [Klor-Con 10 meq PO 05/03/17 Sprinkle] Sitagliptin Phosphate [Januvia] 100 mg PO DAILY 05/03/17 Zolpidem Tartrate [Ambien] 10 mg PO DAILY 05/03/17 Psychiatric History: No pertinent psych hx Smoking Status: Light Smoker (<10/day) Tobacco Use: Cigarettes Alcohol: None Drugs: None - *Family History Maternal History Items: - - No coronary artery disease Review of Systems Constitutional: Reports: Malaise, Weakness, Fatigue. Denies: Anorexia, Chills, Fever, Night Sweats Eyes: Denies: Blurred vision, Cataracts, Double vision, Drainage, Eyelid Inflammation, Pain, Redness HEENT: Reports: Head Aches. Denies: Difficulty Hearing, Difficulty Swallowing, Dysphasia, Ear Pain, Hard of Hearing, Nasal bleeding, Nasal Congestion, Post Nasal Drip, Sinus Congestion, Sore Throat Cardiovascular: Reports: Syncope. Denies: Chest Pain, Chest Pressure, Chest Tightness, Edema, Heaviness, Orthopnea, Palpitations Respiratory: Denies: Cough, Pleuritic Pain, Shortness of Breath, Sputum production, Wheezing Gastrointestinal: Reports: Constipation, Nausea, Vomiting, - - Black stools noted. Denies: Hematemesis, Hematochezia Genitourinary: Denies: Dysuria, Hematuria, Hesitancy, Incontinence, Retention Gynecological: Denies: Breast symptoms, Excessively long or heavy periods Musculoskeletal: Denies: Joint stiffness, Joint swelling, Joint Tenderness Skin: Denies: Dryness, Lesions Neurological: Denies: Balance problems, Double vision, Change in Speech, Slurred speech, Confusion, Focal weakness, Incoordination, Tingling Psychiatric: Denies: Anxiety, Depression, Homicidal Ideations, Suicidal Ideations Endocrine: Denies: Change in Body Habitus, Heat/ Cold Intolerance, Polydipsia Hematologic/ Lymphatic: Denies: Adenopathy, Easy Bruising, Hx of blood clot Comment: Review of systems otherwise negative ?10 systems. Patient Problems: Active and Suspected Problems Upper GI bleed (Acute) Acute blood loss anemia (Acute) Hemorrhagic shock (Acute) Syncope (Acute) Objective: X-ray was personally reviewed and shows no acute infiltrates. - Physical Exam General: Alert, Oriented x3, Cooperative, - - Mild distress. Appears stated age. Obese. Appears pale. HEENT: Atraumatic, PERRLA, EOMI, Normocephalic, - - Pale conjunctiva Oral: No Gingival or Mucosal Lesions/ Ulcerations, Dry Mucosa Neck: Supple, No JVD, No Nodes, Trachea Midline Lungs: Clear to auscultation, No rhonchi, No wheeze, No rales, - - Symmetric expansion. Cardiovascular: Regular rate, Regular Rhythm, Normal S1, Normal S2, No murmurs, No rub noted, No Gallop Abdomen: Bowel Sounds Present, Soft, Non Tender, Non-Distended, Obese Extremities: No clubbing, No cyanosis, No edema, Capillary Refill Less than 3 Seconds Skin: No rashes, No breakdown Musculoskeletal: No Tenderness to Palpation of Joints or Extremities, No Muscle Wasting Lymphatic: No Cervical, Supraclavicular, or Inguinal Adenopathy Neurological: Cranial nerves II-XII grossly intact, Neuro grossly intact, Motor Exam 5/5 strength throughout, Sensory exam intact to light touch and pain Psych/Mental Status: Alert and oriented to time, place, person, mood and affect Vital Signs Temp Pulse Resp BP Pulse Ox 36.4 C L 88 21 H 86/65 L 100 03/08/18 08:28 05/05/17 10:13 05/05/17 10:13 05/05/17 10:13 05/05/17 10:13 Laboratory Tests 05/05/17 05/05/17 05/05/17 08:35 08:40 08:40 WBC 14.4 H RBC 2.60 L Hgb 7.9 L Hct 23.0 L MCV 88.5 MCH 30.4 MCHC 34.3 RDW 13.2 RDW Differential 42.7 Plt Count 228 MPV 10.7 Immature Gran % (Auto) 0.300 Neut % (Auto) 66.9 Lymph % (Auto) 19.9 [place] % (Auto) 12.5 H Eos % (Auto) 0.3 Baso % (Auto) 0.1 Absolute Neuts (auto) 9.6 H Absolute Lymphs (auto) 2.86 Total Counted Not Reportable Differential Comment COMMENT Diff Path Review May foll PT INR Specimen Type VBG pH VBG pO2 VBG O2 Sat (Calc) VBG O2 Content VBG Base Excess POC Mix VBG pCO2 Pt Tmp Blood Gas Notified Whom Blood Gas Notified Time Sodium 139 Potassium 3.1 L Chloride 104 Carbon Dioxide 23.0 Anion Gap 12 BUN 38 H Creatinine 1.03 H Estim Creat Clear Calc 39.62 Est GFR (MDRD) Af Amer 68 Est GFR (MDRD) Non-Af 56 L BUN/Creatinine Ratio 36.9 H Glucose 239 H Lactic Acid Calcium 7.8 L Troponin I < 0.02 Blood Type A NEGATIVE Antibody Screen NEGATIVE Crossmatch See Detail 05/05/17 05/05/17 05/05/17 08:40 08:40 11:10 WBC 12.9 H RBC 2.27 L Hgb 7.1 L Hct 20.5 L MCV 90.3 MCH 31.3 MCHC 34.6 RDW 12.7 RDW Differential 39.1 Plt Count 187 MPV 10.8 Immature Gran % (Auto) 0.300 Neut % (Auto) 81.8 H Lymph % (Auto) 10.2 L [place] % (Auto) 7.4 Eos % (Auto) 0.2 Baso % (Auto) 0.1 Absolute Neuts (auto) 10.5 H Absolute Lymphs (auto) 1.31 Total Counted Not Reportable Differential Comment Diff Path Review PT 15.5 H INR 1.2 Specimen Type VBG pH VBG pO2 VBG O2 Sat (Calc) VBG O2 Content VBG Base Excess POC Mix VBG pCO2 Pt Tmp Blood Gas Notified Whom Blood Gas Notified Time Sodium Potassium Chloride Carbon Dioxide Anion Gap BUN Creatinine Estim Creat Clear Calc Est GFR (MDRD) Af Amer Est GFR (MDRD) Non-Af BUN/Creatinine Ratio Glucose Lactic Acid 3.3 H Calcium Troponin I Blood Type Antibody Screen Crossmatch 05/05/17 11:22 WBC RBC Hgb Hct MCV MCH MCHC RDW RDW Differential Plt Count MPV Immature Gran % (Auto) Neut % (Auto) Lymph % (Auto) [place] % (Auto) Eos % (Auto) Baso % (Auto) Absolute Neuts (auto) Absolute Lymphs (auto) Total Counted Differential Comment Diff Path Review PT INR Specimen Type JOANIE VBG pH 7.30 L VBG pO2 141 H VBG O2 Sat (Calc) 99 H VBG O2 Content 25 VBG Base Excess -3 L POC Mix VBG pCO2 Pt Tmp 47.9 Blood Gas Notified Whom [facility] Blood Gas Notified Time 1121 Sodium Potassium Chloride Carbon Dioxide Anion Gap BUN Creatinine Estim Creat Clear Calc Est GFR (MDRD) Af Amer Est GFR (MDRD) Non-Af BUN/Creatinine Ratio Glucose Lactic Acid Calcium Troponin I Blood Type Antibody Screen Crossmatch Clinical Impression(s) from Imaging Studies Chest X-Ray 05/05/17 08:42 IMPRESSION: Hyperinflation. Electronically Signed: Maximiliano Norris MD at 9:08 EST Tel [phone], Service support , Assessment/Plan Active and Suspected Problems Upper GI bleed (Acute) Acute blood loss anemia (Acute) Hemorrhagic shock (Acute) Syncope (Acute) RECOMMENDATIONS: 1. Transfusions as ordered 2. H&H every 6 hours, obtain coagulation studies now 3. Fluid boluses as necessary 4. Repeat lactate, blood sugar checks with sliding scale insulin 5. Bronchodilators as needed, hold all home NSAIDs IMPRESSIONS: 1. Hemorrhagic shock secondary to suspected upper GI bleed Exact etiology is unclear at this time. Patient has had no hematemesis, so clinical suspicion is for duodenal ulcer with bleeding. Current H&H is 5 g below 2 days ago indicating significant bleeding. Will obtain regulation studies to make sure patient does not have a consumptive coagulopathy. Repeat H &H's every 6 hours until EGD. Patient is on IV Protonix. 2. Acute blood loss anemia secondary to suspected upper GI bleed Patient with significant drop in hemoglobin over the last 2 days. However , patient is not reporting hematemesis or hematochezia. Will continue to monitor closely with H&H's. Did discuss with surgery and patient can be emergently scoped if necessary, but currently EGD is planned for tomorrow around 10 AM. Patient has no protestant convictions against blood transfusions. Will attempt to keep hemoglobin greater than 8. 3. Acute kidney injury/hypokalemia Likely prerenal etiology. Patient has received fluid with good response in blood pressure. We will continue to monitor closely. Potassium supplementation as indicated. 4. Advanced age/long smoking history/diabetes mellitus Patient does have an element of hyperinflation noted on chest x-ray. Patient may benefit from aerosol therapy if shortness of breath develops. Will hold diabetic medications. Patient can continue on sliding scale insulin with blood sugar checks. Patient would likely benefit from outpatient complete pulmonary function test. Code Visit Inpatient E&M: 96688 Init Hosp L3
[2017-05-05 11:26] LABS: Blood Gas Specimen Type VEN; Time Given 1121; VBG BASE EXCESS -3 mmol/L (-1.0-3.5); VBG Bicarbonate 23 mmol/L (22-26); VBG Oxygen Content 25 mmol/L (23-33); VBG PO2 141 mmHg (25-40); VBG SO2 99 % (50-70); VBG pCO2 47.9 mmHg (41-51)
[2017-05-05 12:36] LABS: Bedside Glucose 150 mg/dL (70-110)
[2017-05-05 12:47] LABS: Reflex Lactate? Y
[2017-05-05] MEDS: 0.9% NaCl Peripheral Flush Adult/Peds IV ×3 (14:42→15:43)
--- NOTE | 2017-05-05 14:45 | CHAPLAIN ---
Type of Pastoral Visit _x__ Initial Visit ___ Follow-up Visit ___ On-call Visit ___ General Patient Visit ___ Spiritual Assessment ___ Family Conference ___ Bereavement ___ Rapid Response ___ Code Blue ___ Other (describe below) Pastoral Care Referral From _x__ Patient ___ Family ___ Nurse ___ Physician ___ Inspector Agricultural Commodities ___ Cow Tester ___ Other (describe below) Sacrament/Intervention _x__ Active listening ___ Anointing ___ Judaism ___ Bereavement ___ Communion ___ Gloria exploration ___ ___ Life review _x__ Prayer ___ Reconciliation ___ Sacrament of Sick _x__ Supportive presence ___ Wedding ___ Other (describe below) Pastoral Comments patient said that this health crisis has been a scary experience; pt has several family members with her and she tells me that she has good support; pt is involved in a weekly Bible study which gives her spiritual direction; pt asks for prayer for her scope that will be done and for peace of mind
[2017-05-05 15:09] LABS: M R Staph aureus DNA By PCR Negative (Negative); Probe Check PASS; Specimen Processing Control PASS
[2017-05-05 16:10] LABS: Absolute Lymphocyte Count 2.38 X10^3/ul (0.83-4.51); Absolute Neutrophil Count 7.9 X10^3/uL (2.0-7.7); Basophil# 0.01 X10^3/uL; Basophil% 0.1 % (0-1); Eosinophil# 0.01 X10^3/uL; Eosinophils% 0.1 % (0-5); Hematocrit 22.3 % (37-47); Hemoglobin 7.7 g/dl (12.0-15.0); Lymphocyte # 2.38 X10^3/ul (4.0); Lymphocyte % 20.7 % (19-41); Mean Corp Hgb Conc 34.5 g/gl (32-36); Mean Corpuscular Hgb 30.3 pg (27.0-32.0); Mean Corpuscular Volume 87.8 fL (81-99); Mean Platelet Vol. 10.5 fl (6.2-12.0); Monocyte# 1.22 X10^3/uL; Monocyte% 10.6 % (0-10); Neutrophil # 7.87 X10^3/uL (2.7-7.7); Neutrophil % 68.3 % (47-70); Platelet Count 174 K/mm3 (150-450); RBC Distribution Width CV 13.6 % (11.6-14.6); RBC Distribution Width SD 43.5 fl (35.1-43.9); Red Blood Count 2.54 M/mm3 (4.2-5.4); White Blood Count 11.5 K/mm3 (4.4-11.0)
[2017-05-05 16:13] LABS: POSITIVE COUNT NO; POSITIVE DIFFERENTIAL NO; POSITIVE MORPHOLOGY NO
--- NOTE | 2017-05-05 17:30 | CON.PCM_ITS ---
Reason for Consult Date of Consultation: 05/05/17 History of Present Illness: The patient is a 72 year old F who is noticed black stools and then maroon stools for the last 2 days, followed by a syncopal episode. The patient was seen and emerged prep and 2 days previously for was felt to be metformin toxicity. Her hemoglobin was 13 at that time. She presents today with a hemoglobin of 7.9, tachycardic and hypotensive. the patient takes nonsteroidal medications, smokes, and has stress. She denies alcohol use. She notes a degree of epigastric discomfort. She denies nausea or vomiting. She has not had a previous colonoscopy. She has not had upper endoscopy. Past Medical History Past Medical History (Chronic Problems): Chronic Problems HTN (hypertension) (Chronic) Hyperlipidemia (Chronic) DM2 (diabetes mellitus, type 2) (Chronic) Tobacco abuse (Chronic) Allergies No Known Allergies Allergy (Verified 05/05/17 08:28) Home Medications: Ambulatory Orders Medication Instructions Recorded Atenolol [Tenormin (Beta Denia)] 25 mg PO DAILY 05/03/17 Citalopram [Celexa] 20 mg PO DAILY 05/03/17 Gabapentin [Neurontin] 100 mg PO BID 05/03/17 Hydrochlorothiazide 12.5 mg PO DAILY 05/03/17 Lorazepam [Ativan] 0.5 mg PO TID 05/03/17 Potassium Chloride [Klor-Con 10 meq PO DAILY 05/03/17 Sprinkle] Zolpidem Tartrate [Ambien] 10 mg PO DAILY 05/03/17 Lisinopril [Prinivil] 10 mg PO DAILY 05/05/17 Psychiatric History: No pertinent psych hx Smoking Status: Light Smoker (<10/day) Tobacco Use: Cigarettes Alcohol: None Drugs: None - *Family History Maternal History Items: - - No coronary artery disease Review of Systems Constitutional: Reports: Weakness, Fatigue. Denies: Chills, Fever, Weight Change HEENT: Denies: Head Aches, Sinus Congestion, Sinus Drainage Cardiovascular: Reports: Syncope. Denies: Chest Pain, Palpitations Respiratory: Denies: Cough, Shortness of breath at rest, Sputum production Gastrointestinal: Reports: Hematochezia, Melena. Denies: Abdominal Pain, Nausea , Vomiting Genitourinary: Denies: Dysuria Musculoskeletal: Denies: Joint Pain, Joint Tenderness Skin: Denies: Rash, Wounds Neurological: Denies: Numbness, Tingling, Focal weakness Psychiatric: Denies: Anxiety, Depression, Homicidal Ideations, Suicidal Ideations Hematologic/ Lymphatic: Denies: Easy Bruising, Easy Bleeding Patient Problems: Active and Suspected Problems Upper GI bleed (Acute) Acute blood loss anemia (Acute) Hemorrhagic shock (Acute) Syncope (Acute) - Physical Exam General: Alert, Oriented x3 Lungs: Clear to auscultation, Normal air movement Cardiovascular: Regular Rhythm, Tachycardic Abdomen: Bowel Sounds Present, Soft, Non Tender Vital Signs Temp Pulse Resp BP Pulse Ox 97.8 F 83 18 110/68 100 05/05/17 17:00 05/05/17 17:00 05/05/17 17:00 05/05/17 17:00 05/05/17 17:00 Oxygen Flow Rate (L/min) 2 Oxygen Delivery Method Nasal Cannula Weight: 75.7 kg Body Mass Index (BMI) 30.5 Intake and Output for Last 24 Hours 05/03/17 05/04/17 05/05/17 23:59 23:59 23:59 Intake Total 400 / 400 Balance 400 / 400 Laboratory Tests Past 24 Hrs 05/05/17 05/05/17 05/05/17 11:00 11:10 11:22 WBC 12.9 H RBC 2.27 L Hgb 7.1 L Hct 20.5 L MCV 90.3 MCH 31.3 MCHC 34.6 RDW 12.7 RDW Differential 39.1 Plt Count 187 MPV 10.8 Immature Gran % (Auto) 0.300 Neut % (Auto) 81.8 H Lymph % (Auto) 10.2 L [place] % (Auto) 7.4 Eos % (Auto) 0.2 Baso % (Auto) 0.1 Absolute Neuts (auto) 10.5 H Absolute Lymphs (auto) 1.31 Total Counted Not Reportable Specimen Type JOANIE VBG pH 7.30 L VBG pO2 141 H VBG O2 Sat (Calc) 99 H VBG O2 Content 25 VBG Base Excess -3 L POC Mix VBG pCO2 Pt Tmp 47.9 Blood Gas Notified Whom HOSP Blood Gas Notified Time 1121 Lactic Acid MRSA (PCR) Negative 05/05/17 05/05/17 13:00 15:35 WBC 11.5 H RBC 2.54 L Hgb 7.7 L Hct 22.3 L MCV 87.8 MCH 30.3 MCHC 34.5 RDW 13.6 RDW Differential 43.5 Plt Count 174 MPV 10.5 Immature Gran % (Auto) 0.200 Neut % (Auto) 68.3 Lymph % (Auto) 20.7 [place] % (Auto) 10.6 H Eos % (Auto) 0.1 Baso % (Auto) 0.1 Absolute Neuts (auto) 7.9 H Absolute Lymphs (auto) 2.38 Total Counted Not Reportable Specimen Type VBG pH VBG pO2 VBG O2 Sat (Calc) VBG O2 Content VBG Base Excess POC Mix VBG pCO2 Pt Tmp Blood Gas Notified Whom Blood Gas Notified Time Lactic Acid 1.0 MRSA (PCR) POC Glucose 05/05/17 12:33 POC Glucose 150 H Assessment/Plan Active and Suspected Problems Upper GI bleed (Acute) Acute blood loss anemia (Acute) Hemorrhagic shock (Acute) Syncope (Acute) [place], acute blood loss anemia-most likely upper GI bleed Patient's preliminary to the ICU. She is being transfused. Coags will be checked. If the patient remains stable, we will plan for semiurgent endoscopy tomorrow. If during transfusion, the patient has further significant bleeding episodes or becomes hemodynamically unstable, will perform urgent upper endoscopy in the ICU. Patient understands the risks, benefits, possible complications and consents to upper endoscopy. The patient is currently being giving proton pump inhibitors, IV every 12 hours.
[2017-05-05 18:46] LABS: Bedside Glucose 94 mg/dL (70-110)
[2017-05-05 22:28] LABS: Absolute Lymphocyte Count 2.52 X10^3/ul (0.83-4.51); Absolute Neutrophil Count 5.9 X10^3/uL (2.0-7.7); Basophil# 0.02 X10^3/uL; Basophil% 0.2 % (0-1); Eosinophil# 0.06 X10^3/uL; Eosinophils% 0.6 % (0-5); Hematocrit 21.1 % (37-47); Hemoglobin 7.4 g/dl (12.0-15.0); Lymphocyte # 2.52 X10^3/ul (4.0); Mean Corp Hgb Conc 35.1 g/gl (32-36); Mean Corpuscular Hgb 30.7 pg (27.0-32.0); Mean Corpuscular Volume 87.6 fL (81-99); Mean Platelet Vol. 10.3 fl (6.2-12.0); Monocyte# 0.82 X10^3/uL; Monocyte% 8.8 % (0-10); Neutrophil # 5.91 X10^3/uL (2.7-7.7); Neutrophil % 63.3 % (47-70); POSITIVE COUNT NO; POSITIVE DIFFERENTIAL NO; POSITIVE MORPHOLOGY NO; Platelet Count 166 K/mm3 (150-450); RBC Distribution Width SD 44.2 fl (35.1-43.9); Red Blood Count 2.41 M/mm3 (4.2-5.4); White Blood Count 9.3 K/mm3 (4.4-11.0)
[2017-05-06] VITALS (54 sets, daily range): BP systolic 62–118; BP diastolic 30–93; PULSE 82–148; RESP 13–31; TEMP 36.2–37.3; O2SAT 90–100
[2017-05-06 00:01] LABS: Bedside Glucose 105 mg/dL (70-110)
[2017-05-06] MEDS: Ondansetron 4 MG/2 ML Vial IV ×2 (01:19→08:00)
[2017-05-06 01:26] LABS: Bedside Glucose 129 mg/dL (70-110)
--- NOTE | 2017-05-06 05:05 | NURSING ---
attempted to call sonMasood and daughter, Sienna per patient request as her EGD is now being done @0600 this am. no answer for either and messages were left with both to call the unit. called her sister, marco a and notified her that the EGD is being done at 0600 and she stated that she is coming in and will be to the hospital as soon as possible.
--- NOTE | 2017-05-06 05:13 | EKG12_ITS ---
Test Reason : Blood Pressure : / mmHG Vent. Rate : 106 BPM Atrial Rate : 106 BPM P-R Int : 120 ms QRS Dur : 068 ms QT Int : 344 ms P-R-T Axes : 068 066 064 degrees QTc Int : 456 ms Sinus tachycardia Nonspecific ST abnormality Abnormal ECG When compared with ECG of 05-MAY-2017 08:59, No significant change was found Confirmed by KEVIN BINGHAM MD ([id number]), editorial specialist MIGUE JOY ([id number]) on 05/13/2017 2:02:19 PM Referred By: Confirmed By:KEVIN BINGHAM MD
[2017-05-06 05:20] LABS: Absolute Lymphocyte Count 1.69 X10^3/ul (0.83-4.51); Absolute Neutrophil Count 7.2 X10^3/uL (2.0-7.7); Basophil# 0.02 X10^3/uL; Basophil% 0.2 % (0-1); Eosinophil# 0.01 X10^3/uL; Eosinophils% 0.1 % (0-5); Hematocrit 16.9 % (37-47); Lymphocyte # 1.69 X10^3/ul (4.0); Lymphocyte % 17.2 % (19-41); Mean Corp Hgb Conc 33.7 g/gl (32-36); Mean Corpuscular Hgb 30.6 pg (27.0-32.0); Mean Corpuscular Volume 90.9 fL (81-99); Mean Platelet Vol. 11.1 fl (6.2-12.0); Monocyte# 0.91 X10^3/uL; Monocyte% 9.2 % (0-10); Neutrophil # 7.19 X10^3/uL (2.7-7.7); Neutrophil % 73.1 % (47-70); Platelet Count 147 K/mm3 (150-450); RBC Distribution Width CV 13.8 % (11.6-14.6); RBC Distribution Width SD 41.9 fl (35.1-43.9); Red Blood Count 1.86 M/mm3 (4.2-5.4); White Blood Count 9.8 K/mm3 (4.4-11.0)
[2017-05-06 05:22] LABS: Hemoglobin 5.7 g/dl (12.0-15.0); POSITIVE COUNT YES; POSITIVE DIFFERENTIAL NO; POSITIVE MORPHOLOGY NO
[2017-05-06 05:40] LABS: Anion Gap 9 (5-15); BUN 27 mg/dL (7-18); Calcium,Total 6.2 mg/dL (8.5-10.1); Chloride 115 mmol/L (98-107); Creatinine, Serum 0.56 mg/dL (0.55-1.02); EST Glomerular Filtration Rate 113 mL/min (>60); Est Glom Filt Rate - Afr Amer 137 mL/min (>60); Estimated Creatinine Clearance 40.81 ml/min; Glucose 152 mg/dL (74-106); Potassium 3.8 mmol/L (3.5-5.1); Sodium Level 145 mmol/L (136-145)
[2017-05-06] MEDS: Lactated Ringers 1,000 ML 999 ML IV ×3 (05:44→08:30)
[2017-05-06] MEDS: 0.9% Normal Saline 1,000 ML 150 ML IV (05:44)
[2017-05-06 05:51] LABS: Bedside Glucose 154 mg/dL (70-110)
--- NOTE | 2017-05-06 06:17 | NURSING ---
Dr. Junior and Dr. Harry at bedside beginning upper endoscopy.
[2017-05-06] MEDS: Propofol 200 MG/20 ML Vial 120 MG IV BOLUS (06:22)
[2017-05-06] MEDS: 0.9% NaCl Peripheral Flush Adult/Peds IV ×4 (07:05→08:30)
--- NOTE | 2017-05-06 07:26 | NURSING ---
Dr. Junior and Dr. Harry at bedside for EGD, Time out completed at 0617. Propofol 40mg IV given at 0617. Procedure started at [address] Junior. Oxygen increased to 5L NC at 0619. Propofol 20mg IV given at 0622 per verbal order from Dr. Harry. Propofol 10mg IV given at [address] Harry. Propofol 10mg IV given at 0633, an additional 10mg IV at 0640, and an additional 10mg IV [address] Harry. Propofol 20mg IV given at 0653. Oxygen increased to 6L NC at 0655. EGD completed at 0705. Dr. Harry spoke to family regarding results of EGD and discussed plan to transfer to another hospital due to inability to control bleeding. A total of 5mg of Epi was injected into GI tract by endoscopy nurse during procedure.
--- NOTE | 2017-05-06 07:39 | PCM.PN.INT ---
Subjective: Overnight events were reviewed. Patient with a decrease in blood pressure and presyncopal symptoms leading to a repeat H&H showing a hemoglobin of 5.7. Dr. Junior was informed and endoscopy was moved up to 6 AM. Patient reported significant abdominal discomfort with nausea, but no hematemesis. Nursing did report dark stool, but no gross hematochezia. Objective: At approximately 6:05 AM, family was updated and consent was verified. The patient was given 40 mg of propofol and Cetacaine spray. Endoscopy was initiated. See surgical note for specific details. Gross blood was noted in the stomach, but after investigation, a large adherent clot was noted in the first part of the duodenum just past the bulb. Multiple attempts to remove clot with snare and forceps were unsuccessful in locating source of bleeding. The patient did receive a total of 5 cc of epinephrine injected in the area, but a bright red clot was still present. Patient's blood pressure did remain appropriate throughout the procedure and patient saturated well on 5 L nasal cannula. There was a single episode of an emesis of a clot that had to be removed. The patient received a total of 120 mg of propofol for sedation over approximately 60 minutes of procedure time. General: Alert, Oriented x3, Cooperative, - - Pale appearance. Slightly slow to respond. HEENT: Atraumatic, PERRLA, EOMI, Normocephalic, - - Pale conjunctival. Oral: Moist Mucosa, No Gingival or Mucosal Lesions/ Ulcerations Neck: Supple, No JVD, No Nodes, Trachea Midline Lungs: Clear to auscultation, Normal air movement, No rhonchi, No wheeze, No rales, - - Symmetric expansion. No dullness to percussion. Cardiovascular: Normal S1, Normal S2, No murmurs, No rub noted, No Gallop, Tachycardic Abdomen: Soft, Non Tender, Hyperactive Bowel Sounds, Distended - Slightly Extremities: No clubbing, No cyanosis, No edema Skin: No rashes, No breakdown Musculoskeletal: No Tenderness to Palpation of Joints or Extremities Lymphatic: No Cervical, Supraclavicular, or Inguinal Adenopathy Neurological: Cranial nerves II-XII grossly intact, Neuro grossly intact, Motor Exam 5/5 strength throughout Psych/Mental Status: Alert and oriented to time, place, person, mood and affect Vital Signs Temp Pulse Resp BP Pulse Ox 36.7 C 101 H 18 106/51 L 99 05/06/17 07:18 05/06/17 07:30 05/06/17 07:30 05/06/17 07:30 05/06/17 07:30 Oxygen Flow Rate (L/min) 6 Oxygen Delivery Method Nasal Cannula Weight: 78.1 kg Body Mass Index (BMI) 30.5 Intake and Output for Last 24 Hours 05/04/17 05/05/17 05/06/17 23:59 23:59 23:59 Intake Total 1770 / 1770 2837 / 2837 Output Total 500 / 500 Balance 1270 / 1270 2837 / 2837 Labs (Last 48 Hours) 05/05/17 05/05/17 05/05/17 11:00 11:10 11:22 WBC 12.9 H RBC 2.27 L Hgb 7.1 L Hct 20.5 L MCV 90.3 MCH 31.3 MCHC 34.6 RDW 12.7 RDW Differential 39.1 Plt Count 187 MPV 10.8 Immature Gran % (Auto) 0.300 Neut % (Auto) 81.8 H Lymph % (Auto) 10.[address] [place] % (Auto) 7.4 Eos % (Auto) 0.2 Baso % (Auto) 0.1 Absolute Neuts (auto) 10.5 H Absolute Lymphs (auto) 1.31 Total Counted Not Reportable Diff Path Review Specimen Type JOANIE VBG pH 7.30 L VBG pO2 141 H VBG O2 Sat (Calc) 99 H VBG O2 Content 25 VBG Base Excess -3 L POC Mix VBG pCO2 Pt Tmp 47.9 Blood Gas Notified Whom HOSP Blood Gas Notified Time 1121 Sodium Potassium Chloride Carbon Dioxide Anion Gap BUN Creatinine Estim Creat Clear Calc Est GFR (MDRD) Af Amer Est GFR (MDRD) Non-Af BUN/Creatinine Ratio Glucose Lactic Acid Calcium MRSA (PCR) Negative POC Glucose 05/05/17 05/05/17 05/05/17 12:33 13:00 15:35 WBC 11.5 H RBC 2.54 L Hgb 7.7 L Hct 22.3 L MCV 87.8 MCH 30.3 MCHC 34.5 RDW 13.6 RDW Differential 43.5 Plt Count 174 MPV 10.5 Immature Gran % (Auto) 0.200 Neut % (Auto) 68.3 Lymph % (Auto) 20.7 [place] % (Auto) 10.6 H Eos % (Auto) 0.1 Baso % (Auto) 0.1 Absolute Neuts (auto) 7.9 H Absolute Lymphs (auto) 2.38 Total Counted Not Reportable Diff Path Review Specimen Type VBG pH VBG pO2 VBG O2 Sat (Calc) VBG O2 Content VBG Base Excess POC Mix VBG pCO2 Pt Tmp Blood Gas Notified Whom Blood Gas Notified Time Sodium Potassium Chloride Carbon Dioxide Anion Gap BUN Creatinine Estim Creat Clear Calc Est GFR (MDRD) Af Amer Est GFR (MDRD) Non-Af BUN/Creatinine Ratio Glucose Lactic Acid 1.0 Calcium MRSA (PCR) POC Glucose 150 H 05/05/17 05/05/17 05/05/17 17:36 22:00 23:44 WBC 9.3 RBC 2.41 L Hgb 7.4 L Hct 21.1 L MCV 87.6 MCH 30.7 MCHC 35.1 RDW 14.0 RDW Differential 44.2 H Plt Count 166 MPV 10.3 Immature Gran % (Auto) 0.100 Neut % (Auto) 63.3 Lymph % (Auto) 27.0 [place] % (Auto) 8.8 Eos % (Auto) 0.6 Baso % (Auto) 0.2 Absolute Neuts (auto) 5.9 Absolute Lymphs (auto) 2.52 Total Counted Not Reportable Diff Path Review Specimen Type VBG pH VBG pO2 VBG O2 Sat (Calc) VBG O2 Content VBG Base Excess POC Mix VBG pCO2 Pt Tmp Blood Gas Notified Whom Blood Gas Notified Time Sodium Potassium Chloride Carbon Dioxide Anion Gap BUN Creatinine Estim Creat Clear Calc Est GFR (MDRD) Af Amer Est GFR (MDRD) Non-Af BUN/Creatinine Ratio Glucose Lactic Acid Calcium MRSA (PCR) POC Glucose 94 105 05/06/17 05/06/17 05/06/17 01:17 05:10 05:10 WBC 9.8 RBC 1.86 L Hgb 5.7 L* Hct 16.9 L MCV 90.9 MCH 30.6 MCHC 33.7 RDW 13.8 RDW Differential 41.9 Plt Count 147 L MPV 11.1 Immature Gran % (Auto) 0.200 Neut % (Auto) 73.1 H Lymph % (Auto) 17.[address] [place] % (Auto) 9.2 Eos % (Auto) 0.1 Baso % (Auto) 0.2 Absolute Neuts (auto) 7.2 Absolute Lymphs (auto) 1.69 Total Counted Not Reportable Diff Path Review May foll Specimen Type VBG pH VBG pO2 VBG O2 Sat (Calc) VBG O2 Content VBG Base Excess POC Mix VBG pCO2 Pt Tmp Blood Gas Notified Whom Blood Gas Notified Time Sodium 145 Potassium 3.8 Chloride 115 H Carbon Dioxide 21.0 Anion Gap 9 BUN 27 H Creatinine 0.56 Estim Creat Clear Calc 40.81 Est GFR (MDRD) Af Amer 137 Est GFR (MDRD) Non-Af 113 BUN/Creatinine Ratio 48.0 H Glucose 152 H Lactic Acid Calcium 6.2 L* MRSA (PCR) POC Glucose 129 H 05/06/17 05:45 WBC RBC Hgb Hct MCV MCH MCHC RDW RDW Differential Plt Count MPV Immature Gran % (Auto) Neut % (Auto) Lymph % (Auto) [place] % (Auto) Eos % (Auto) Baso % (Auto) Absolute Neuts (auto) Absolute Lymphs (auto) Total Counted Diff Path Review Specimen Type VBG pH VBG pO2 VBG O2 Sat (Calc) VBG O2 Content VBG Base Excess POC Mix VBG pCO2 Pt Tmp Blood Gas Notified Whom Blood Gas Notified Time Sodium Potassium Chloride Carbon Dioxide Anion Gap BUN Creatinine Estim Creat Clear Calc Est GFR (MDRD) Af Amer Est GFR (MDRD) Non-Af BUN/Creatinine Ratio Glucose Lactic Acid Calcium MRSA (PCR) POC Glucose 154 H Clinical Impression(s) from Imaging Studies Chest X-Ray 05/05/17 08:42 IMPRESSION: Hyperinflation. Electronically Signed: Maximiliano Norris MD at 9:08 EST Tel [phone], Service support , Assessment/Plan Active and Suspected Problems Upper GI bleed (Acute) Acute blood loss anemia (Acute) Hemorrhagic shock (Acute) Syncope (Acute) RECOMMENDATIONS: 1. Transfusions as ordered 2. Transferred to [facility] 3. Fluid boluses as necessary 4. Ordered 2 g calcium gluconate 5. Bronchodilators as needed, hold all home NSAIDs IMPRESSIONS: 1. Hemorrhagic shock secondary to suspected upper GI bleed And underwent approximately 1 hour of endoscopy to attempt to control bleeding. She did have 5 cc of epinephrine injected, but exact bleeding site could not be visualized and appropriately addressed with coagulation or clipping. Some concern the patient will require IR intervention if bleeding were to recur. Patient has received a total of 4 units of packed red blood cells and 2 L of lactated Ringer's. 2 g of calcium gluconate have been ordered. Test with Dr. Dunlap at [facility]. Patient has a bed assigned. 2. Acute blood loss anemia secondary to suspected upper GI bleed Patient with significant drop in hemoglobin over the last 2 days. However, patient is not reporting hematemesis or hematochezia. Poor control of bleeding. Possible repeat intervention will be required. 5 unit of blood is ordered. Calcium replacement ordered. 3. Acute kidney injury/hypokalemia Likely prerenal etiology. Patient has received fluid with good response in blood pressure. We will continue to monitor closely. Potassium supplementation as indicated. 4. Advanced age/long smoking history/diabetes mellitus Patient does have an element of hyperinflation noted on chest x-ray. Patient may benefit from aerosol therapy if shortness of breath develops. Will hold diabetic medications. Patient can continue on sliding scale insulin with blood sugar checks. Patient would likely benefit from outpatient complete pulmonary function test. TIME: 140 minutes of critical care time spent addressing patient's hemorrhagic shock, providing sedation, arranging transfer, review of all data and collaboration with care team (5:30 AM to 7:50 AM) Code Visit Procedures: 44209 Critial Care Addl 30 Min - 140 minutes of total critical care time ([id number], [id number])
--- NOTE | 2017-05-06 07:54 | PN_ITS ---
Subjective: Overnight events were reviewed. Patient with a decrease in blood pressure and presyncopal symptoms leading to a repeat H&H showing a hemoglobin of 5.7. Dr. Junior was informed and endoscopy was moved up to 6 AM. Patient reported significant abdominal discomfort with nausea, but no hematemesis. Nursing did report dark stool, but no gross hematochezia. Objective: At approximately 6:05 AM, family was updated and consent was verified. The patient was given 40 mg of propofol and Cetacaine spray. Endoscopy was initiated. See surgical note for specific details. Gross blood was noted in the stomach, but after investigation, a large adherent clot was noted in the first part of the duodenum just past the bulb. Multiple attempts to remove clot with snare and forceps were unsuccessful in locating source of bleeding. The patient did receive a total of 5 cc of epinephrine injected in the area, but a bright red clot was still present. Patient's blood pressure did remain appropriate throughout the procedure and patient saturated well on 5 L nasal cannula. There was a single episode of an emesis of a clot that had to be removed. The patient received a total of 120 mg of propofol for sedation over approximately 60 minutes of procedure time. General: Alert, Oriented x3, Cooperative, - - Pale appearance. Slightly slow to respond. HEENT: Atraumatic, PERRLA, EOMI, Normocephalic, - - Pale conjunctival. Oral: Moist Mucosa, No Gingival or Mucosal Lesions/ Ulcerations Neck: Supple, No JVD, No Nodes, Trachea Midline Lungs: Clear to auscultation, Normal air movement, No rhonchi, No wheeze, No rales, - - Symmetric expansion. No dullness to percussion. Cardiovascular: Normal S1, Normal S2, No murmurs, No rub noted, No Gallop, Tachycardic Abdomen: Soft, Non Tender, Hyperactive Bowel Sounds, Distended - Slightly Extremities: No clubbing, No cyanosis, No edema Skin: No rashes, No breakdown Musculoskeletal: No Tenderness to Palpation of Joints or Extremities Lymphatic: No Cervical, Supraclavicular, or Inguinal Adenopathy Neurological: Cranial nerves II-XII grossly intact, Neuro grossly intact, Motor Exam 5/5 strength throughout Psych/Mental Status: Alert and oriented to time, place, person, mood and affect Vital Signs Temp Pulse Resp BP Pulse Ox 36.7 C 101 H 18 106/51 L 99 05/06/17 07:18 05/06/17 07:30 05/06/17 07:30 05/06/17 07:30 05/06/17 07:30 Oxygen Flow Rate (L/min) 6 Oxygen Delivery Method Nasal Cannula Weight: 78.1 kg Body Mass Index (BMI) 30.5 Intake and Output for Last 24 Hours 05/04/17 05/05/17 05/06/17 23:59 23:59 23:59 Intake Total 1770 / 1770 2837 / 2837 Output Total 500 / 500 Balance 1270 / 1270 2837 / 2837 Labs (Last 48 Hours) 05/05/17 05/05/17 05/05/17 11:00 11:10 11:22 WBC 12.9 H RBC 2.27 L Hgb 7.1 L Hct 20.5 L MCV 90.3 MCH 31.3 MCHC 34.6 RDW 12.7 RDW Differential 39.1 Plt Count 187 MPV 10.8 Immature Gran % (Auto) 0.300 Neut % (Auto) 81.8 H Lymph % (Auto) 10.2 L [place] % (Auto) 7.4 Eos % (Auto) 0.2 Baso % (Auto) 0.1 Absolute Neuts (auto) 10.5 H Absolute Lymphs (auto) 1.31 Total Counted Not Reportable Diff Path Review Specimen Type JOANIE VBG pH 7.30 L VBG pO2 141 H VBG O2 Sat (Calc) 99 H VBG O2 Content 25 VBG Base Excess -3 L POC Mix VBG pCO2 Pt Tmp 47.9 Blood Gas Notified Whom HOSP Blood Gas Notified Time 1121 Sodium Potassium Chloride Carbon Dioxide Anion Gap BUN Creatinine Estim Creat Clear Calc Est GFR (MDRD) Af Amer Est GFR (MDRD) Non-Af BUN/Creatinine Ratio Glucose Lactic Acid Calcium MRSA (PCR) Negative POC Glucose 05/05/17 05/05/17 05/05/17 12:33 13:00 15:35 WBC 11.5 H RBC 2.54 L Hgb 7.7 L Hct 22.3 L MCV 87.8 MCH 30.3 MCHC 34.5 RDW 13.6 RDW Differential 43.5 Plt Count 174 MPV 10.5 Immature Gran % (Auto) 0.200 Neut % (Auto) 68.3 Lymph % (Auto) 20.7 [place] % (Auto) 10.6 H Eos % (Auto) 0.1 Baso % (Auto) 0.1 Absolute Neuts (auto) 7.9 H Absolute Lymphs (auto) 2.38 Total Counted Not Reportable Diff Path Review Specimen Type VBG pH VBG pO2 VBG O2 Sat (Calc) VBG O2 Content VBG Base Excess POC Mix VBG pCO2 Pt Tmp Blood Gas Notified Whom Blood Gas Notified Time Sodium Potassium Chloride Carbon Dioxide Anion Gap BUN Creatinine Estim Creat Clear Calc Est GFR (MDRD) Af Amer Est GFR (MDRD) Non-Af BUN/Creatinine Ratio Glucose Lactic Acid 1.0 Calcium MRSA (PCR) POC Glucose 150 H 05/05/17 05/05/17 05/05/17 17:36 22:00 23:44 WBC 9.3 RBC 2.41 L Hgb 7.4 L Hct 21.1 L MCV 87.6 MCH 30.7 MCHC 35.1 RDW 14.0 RDW Differential 44.2 H Plt Count 166 MPV 10.3 Immature Gran % (Auto) 0.100 Neut % (Auto) 63.3 Lymph % (Auto) 27.0 [place] % (Auto) 8.8 Eos % (Auto) 0.6 Baso % (Auto) 0.2 Absolute Neuts (auto) 5.9 Absolute Lymphs (auto) 2.52 Total Counted Not Reportable Diff Path Review Specimen Type VBG pH VBG pO2 VBG O2 Sat (Calc) VBG O2 Content VBG Base Excess POC Mix VBG pCO2 Pt Tmp Blood Gas Notified Whom Blood Gas Notified Time Sodium Potassium Chloride Carbon Dioxide Anion Gap BUN Creatinine Estim Creat Clear Calc Est GFR (MDRD) Af Amer Est GFR (MDRD) Non-Af BUN/Creatinine Ratio Glucose Lactic Acid Calcium MRSA (PCR) POC Glucose 94 105 05/06/17 05/06/17 05/06/17 01:17 05:10 05:10 WBC 9.8 RBC 1.86 L Hgb 5.7 L* Hct 16.9 L MCV 90.9 MCH 30.6 MCHC 33.7 RDW 13.8 RDW Differential 41.9 Plt Count 147 L MPV 11.1 Immature Gran % (Auto) 0.200 Neut % (Auto) 73.1 H Lymph % (Auto) 17.2 L [place] % (Auto) 9.2 Eos % (Auto) 0.1 Baso % (Auto) 0.2 Absolute Neuts (auto) 7.2 Absolute Lymphs (auto) 1.69 Total Counted Not Reportable Diff Path Review May foll Specimen Type VBG pH VBG pO2 VBG O2 Sat (Calc) VBG O2 Content VBG Base Excess POC Mix VBG pCO2 Pt Tmp Blood Gas Notified Whom Blood Gas Notified Time Sodium 145 Potassium 3.8 Chloride 115 H Carbon Dioxide 21.0 Anion Gap 9 BUN 27 H Creatinine 0.56 Estim Creat Clear Calc 40.81 Est GFR (MDRD) Af Amer 137 Est GFR (MDRD) Non-Af 113 BUN/Creatinine Ratio 48.0 H Glucose 152 H Lactic Acid Calcium 6.2 L* MRSA (PCR) POC Glucose 129 H 05/06/17 05:45 WBC RBC Hgb Hct MCV MCH MCHC RDW RDW Differential Plt Count MPV Immature Gran % (Auto) Neut % (Auto) Lymph % (Auto) [place] % (Auto) Eos % (Auto) Baso % (Auto) Absolute Neuts (auto) Absolute Lymphs (auto) Total Counted Diff Path Review Specimen Type VBG pH VBG pO2 VBG O2 Sat (Calc) VBG O2 Content VBG Base Excess POC Mix VBG pCO2 Pt Tmp Blood Gas Notified Whom Blood Gas Notified Time Sodium Potassium Chloride Carbon Dioxide Anion Gap BUN Creatinine Estim Creat Clear Calc Est GFR (MDRD) Af Amer Est GFR (MDRD) Non-Af BUN/Creatinine Ratio Glucose Lactic Acid Calcium MRSA (PCR) POC Glucose 154 H Clinical Impression(s) from Imaging Studies Chest X-Ray 05/05/17 08:42 IMPRESSION: Hyperinflation. Electronically Signed: Maximiliano Norris MD at 9:08 EST Tel [phone], Service support , Assessment/Plan Active and Suspected Problems Upper GI bleed (Acute) Acute blood loss anemia (Acute) Hemorrhagic shock (Acute) Syncope (Acute) RECOMMENDATIONS: 1. Transfusions as ordered 2. Transferred to [facility] 3. Fluid boluses as necessary 4. Ordered 2 g calcium gluconate 5. Bronchodilators as needed, hold all home NSAIDs IMPRESSIONS: 1. Hemorrhagic shock secondary to suspected upper GI bleed And underwent approximately 1 hour of endoscopy to attempt to control bleeding. She did have 5 cc of epinephrine injected, but exact bleeding site could not be visualized and appropriately addressed with coagulation or clipping. Some concern the patient will require IR intervention if bleeding were to recur. Patient has received a total of 4 units of packed red blood cells and 2 L of lactated Ringer's. 2 g of calcium gluconate have been ordered. Test with Dr. Dunlap at [facility]. Patient has a bed assigned. 2. Acute blood loss anemia secondary to suspected upper GI bleed Patient with significant drop in hemoglobin over the last 2 days. However , patient is not reporting hematemesis or hematochezia. Poor control of bleeding. Possible repeat intervention will be required. 5 unit of blood is ordered. Calcium replacement ordered. 3. Acute kidney injury/hypokalemia Likely prerenal etiology. Patient has received fluid with good response in blood pressure. We will continue to monitor closely. Potassium supplementation as indicated. 4. Advanced age/long smoking history/diabetes mellitus Patient does have an element of hyperinflation noted on chest x-ray. Patient may benefit from aerosol therapy if shortness of breath develops. Will hold diabetic medications. Patient can continue on sliding scale insulin with blood sugar checks. Patient would likely benefit from outpatient complete pulmonary function test. TIME: 140 minutes of critical care time spent addressing patient's hemorrhagic shock, providing sedation, arranging transfer, review of all data and collaboration with care team (5:30 AM to 7:50 AM) Code Visit Procedures: 80025 Critial Care Addl 30 Min - 140 minutes of total critical care time (08042, [id number]?3)
--- NOTE | 2017-05-06 08:06 | PCM.DC.SUM ---
Discharge Date and Diagnosis - Problem List Patient Problems: Active and Suspected Problems Upper GI bleed (Acute) Acute blood loss anemia (Acute) Hemorrhagic shock (Acute) Syncope (Acute) Date of Admission: 05/05/17 Date of Discharge: 05/06/17 - Primary Discharge Diagnosis Active and Suspected Problems Upper GI bleed (Acute) Acute blood loss anemia (Acute) Hemorrhagic shock (Acute) Syncope (Acute) - Secondary Discharge Diagnosis Chronic Problems HTN (hypertension) (Chronic) Hyperlipidemia (Chronic) DM2 (diabetes mellitus, type 2) (Chronic) Tobacco abuse (Chronic) Hospital Course and Treatment Imaging Results: Clinical Impression(s) from Imaging Studies Chest X-Ray 05/05/17 08:42 IMPRESSION: Hyperinflation. Electronically Signed: Maximiliano Norris MD at 9:08 EST Tel [phone], Service support , Alex Junior Operations: None Procedures: EGD Summary of Care Provided: The patient is a 72 year old F presents with syncope. Patient presented to the emergency room was hypotensive with systolic blood pressure 69/45, hemoglobin is 7.9, down from 13.4 on May 03. And patient also did have a lactic acid of 2.3. Patient was not have any active bleeding at that time. Concern was for acute blood loss anemia due to an upper GI bleed given patient's NSAID use. Discussed with the patient that if her bleeding does get worse that she may need to be transferred to another facility. Patient agreed to be admitted to [facility]. Patient was doing well patient did receive 1 unit of blood hemoglobin after transfusion was 7.7 drifted down to 7.4 but was otherwise stable. Then approximately 4 AM on the , patient started having melena again. Dr. Sutton, general surgery was initially planning on doing EGD at 10 AM but that was moved up to 6 AM. A visible vessel was noted but bleeding could not be stopped. Patient is currently now receiving her fifth unit of blood. There is been recommended patient go to tertiary facility for possible embolization of the lesion. Dr. Harry spoke with Dr. Dunlap at [facility] and has agreed to accept the patient to their ICU. Patient is otherwise hemodynamically stable at this time though little bit tachycardic at 116. [] Discharge Diet: - - N.p.o. for now Discharge Activity: - - Bedrest for now Home Medications: Medications to take at Discharge Atenolol [Tenormin (Beta Denia)] 25 mg PO DAILY 05/03/17 Citalopram [Celexa] 20 mg PO DAILY 05/03/17 Gabapentin [Neurontin] 100 mg PO BID 05/03/17 Hydrochlorothiazide 12.5 mg PO DAILY 05/03/17 Lorazepam [Ativan] 0.5 mg PO TID 05/03/17 Potassium Chloride [Klor-Con Sprinkle] 10 meq PO DAILY 05/03/17 Zolpidem Tartrate [Ambien] 10 mg PO DAILY 05/03/17 Lisinopril [Prinivil] 10 mg PO DAILY 05/05/17 Primary Care Physician: Omar Bryant MD [Primary Care Provider] - Disposition: [facility] Minutes spent on discharge:: 32 Patient Condition:: Critical Meaningful Use Info Meaningful Use Diagnoses (Choose all that apply): None applicable Code Visit Inpatient E&M: 99557 Disch Hosp
--- NOTE | 2017-05-06 08:10 | PCM.OPRPT ---
Report of Operation Date of Procedure: 05/06/17 Pre-Operative Diagnosis: GI bleed Post-Operative Diagnosis: GI bleed - duodenal ulcer - active bleed Surgery/Procedure Performed:: EGD with injection of epinephrine director presales: None Type of Anesthesia:: IV Sedation Specimen's removed: none Estimated Blood Loss (mL): 1000cc Description of Procedure: The patient was maintained in the ICU. Sign in was performed verifying patient, site, planned procedure, critical nursing information, the patient was monitored with cardiac, pulse oximetric, EKG and blood pressure monitoring devices. IV sedation was provided via propofol with Dr. Alex Harry providing sedation. Following IV sedation and after the oropharynx was sprayed with Cetacaine spray, a video gastroscope was inserted in the oropharynx and advanced down the esophagus without difficulty. The scope was advanced through the stomach, through the pylorus through the duodenum to the proximal jejunum. bright red blood was encountered in the esophagus and stomach. This was aspirated. There was bright red clot noted in the antral area. This was irrigated off and attempted to be aspirated as best possible. The scope was inserted into the duodenum. There was a bright red clots with an older more adherent clot seen in the first portion of the duodenum along the lesser curvature felt to be towards the posterior aspect. Advancing the scope beyond this clot demonstrated normal second and third portion of the duodenum. As the scope was withdrawn. There was noted to be arterial oozing emanating from below the bright red clot. Attempts to irrigate off the clot were relatively unsuccessful. The clot was grasped with the snare and removed. This gave more brisk arterial bleeding. There is irrigated as best possible, but still poor visualization of the first portion of duodenum failed to reveal the discrete bleeding source. I bright red clot reestablished with oozing located around the clotting site. 4 injections of epinephrine were performed. This seemed to temporize the bleeding but still with a bright red clot and possibly some oozing my opinion was she was exceedingly high risk for rebleed. The patient was hemodynamically stable throughout, but still hypotensive and tachycardic. At the conclusion of the case, due to the fact that her bright red arterial blot clot was still present and oozing, and the patient was hypotensive in consultation with Dr. Harry, we felt the optimal treatment was to transfer the patient urgently to a tertiary care center for the ability for angiography. Since the heart. Serial bleed was felt to be temporized, but not completely controlled and the patient at a high risk of rebleed. The patient will be transferred to [facility]. The family is aware. - Admit VTE Documentation VTE Present on Admission: No
--- NOTE | 2017-05-06 08:11 | DS.PCM_ITS ---
Discharge Date and Diagnosis - Problem List Patient Problems: Active and Suspected Problems Upper GI bleed (Acute) Acute blood loss anemia (Acute) Hemorrhagic shock (Acute) Syncope (Acute) Date of Admission: 05/05/17 Date of Discharge: 05/06/17 - Primary Discharge Diagnosis Active and Suspected Problems Upper GI bleed (Acute) Acute blood loss anemia (Acute) Hemorrhagic shock (Acute) Syncope (Acute) - Secondary Discharge Diagnosis Chronic Problems HTN (hypertension) (Chronic) Hyperlipidemia (Chronic) DM2 (diabetes mellitus, type 2) (Chronic) Tobacco abuse (Chronic) Hospital Course and Treatment Imaging Results: Clinical Impression(s) from Imaging Studies Chest X-Ray 05/05/17 08:42 IMPRESSION: Hyperinflation. Electronically Signed: Maximiliano Norris MD at 9:08 EST Tel [phone], Service support , Alex Junior Operations: None Procedures: EGD Summary of Care Provided: The patient is a 72 year old F presents with syncope. Patient presented to the emergency room was hypotensive with systolic blood pressure 69/45, hemoglobin is 7.9, down from 13.4 on May 03. And patient also did have a lactic acid of 2.3. Patient was not have any active bleeding at that time. Concern was for acute blood loss anemia due to an upper GI bleed given patient's NSAID use. Discussed with the patient that if her bleeding does get worse that she may need to be transferred to another facility. Patient agreed to be admitted to [facility]. Patient was doing well patient did receive 1 unit of blood hemoglobin after transfusion was 7.7 drifted down to 7.4 but was otherwise stable. Then approximately 4 AM on the , patient started having melena again. Dr. Sutton, general surgery was initially planning on doing EGD at 10 AM but that was moved up to 6 AM. A visible vessel was noted but bleeding could not be stopped. Patient is currently now receiving her fifth unit of blood. There is been recommended patient go to tertiary facility for possible embolization of the lesion. Dr. Harry spoke with Dr. Dunlap at [facility] and has agreed to accept the patient to their ICU. Patient is otherwise hemodynamically stable at this time though little bit tachycardic at 116. [] Discharge Diet: - - N.p.o. for now Discharge Activity: - - Bedrest for now Home Medications: Medications to take at Discharge Atenolol [Tenormin (Beta Denia)] 25 mg PO DAILY 05/03/17 Citalopram [Celexa] 20 mg PO DAILY 05/03/17 Gabapentin [Neurontin] 100 mg PO BID 05/03/17 Hydrochlorothiazide 12.5 mg PO DAILY 05/03/17 Lorazepam [Ativan] 0.5 mg PO TID 05/03/17 Potassium Chloride [Klor-Con Sprinkle] 10 meq PO DAILY 05/03/17 Zolpidem Tartrate [Ambien] 10 mg PO DAILY 05/03/17 Lisinopril [Prinivil] 10 mg PO DAILY 05/05/17 Primary Care Physician: Omar Bryant MD [Primary Care Provider] - Disposition: [facility] Hospital Minutes spent on discharge:: 32 Patient Condition:: Critical Meaningful Use Info Meaningful Use Diagnoses (Choose all that apply): None applicable Code Visit Inpatient E&M: 19341 Disch Hosp
--- NOTE | 2017-05-06 08:18 | OP.PCM_ITS ---
Report of Operation Date of Procedure: 05/06/17 Pre-Operative Diagnosis: GI bleed Post-Operative Diagnosis: GI bleed - duodenal ulcer - active bleed Surgery/Procedure Performed:: EGD with injection of epinephrine bobbin dumper: None Type of Anesthesia:: IV Sedation Specimen's removed: none Estimated Blood Loss (mL): 1000cc Description of Procedure: The patient was maintained in the ICU. Sign in was performed verifying patient , site, planned procedure, critical nursing information, the patient was monitored with cardiac, pulse oximetric, EKG and blood pressure monitoring devices. IV sedation was provided via propofol with Dr. Alex Harry providing sedation. Following IV sedation and after the oropharynx was sprayed with Cetacaine spray , a video gastroscope was inserted in the oropharynx and advanced down the esophagus without difficulty. The scope was advanced through the stomach, through the pylorus through the duodenum to the proximal jejunum. bright red blood was encountered in the esophagus and stomach. This was aspirated. There was bright red clot noted in the antral area. This was irrigated off and attempted to be aspirated as best possible. The scope was inserted into the duodenum. There was a bright red clots with an older more adherent clot seen in the first portion of the duodenum along the lesser curvature felt to be towards the posterior aspect. Advancing the scope beyond this clot demonstrated normal second and third portion of the duodenum. As the scope was withdrawn. There was noted to be arterial oozing emanating from below the bright red clot. Attempts to irrigate off the clot were relatively unsuccessful. The clot was grasped with the snare and removed. This gave more brisk arterial bleeding. There is irrigated as best possible, but still poor visualization of the first portion of duodenum failed to reveal the discrete bleeding source. I bright red clot reestablished with oozing located around the clotting site. 4 injections of epinephrine were performed. This seemed to temporize the bleeding but still with a bright red clot and possibly some oozing my opinion was she was exceedingly high risk for rebleed. The patient was hemodynamically stable throughout, but still hypotensive and tachycardic. At the conclusion of the case, due to the fact that her bright red arterial blot clot was still present and oozing, and the patient was hypotensive in consultation with Dr. Harry, we felt the optimal treatment was to transfer the patient urgently to a tertiary care center for the ability for angiography. Since the heart. Serial bleed was felt to be temporized, but not completely controlled and the patient at a high risk of rebleed. The patient will be transferred to [facility]. The family is aware. - Admit VTE Documentation VTE Present on Admission: No
--- NOTE | 2017-05-06 08:26 | NURSING ---
report called to Allyson ROGER at [facility] [phone]
--- NOTE | 2017-05-06 09:48 | NURSING ---
remainder of blood was sent with pt and EMS to be transfused during transport to [facility].
[2017-05-06 12:45] LABS: Pathologist Review Reviewed
[2017-05-06 12:49] LABS: Pathologist Review Reviewed
--- NOTE | 2017-05-06 15:04 | PCM.CCNOTE ---
Past Medical History Admit Diagnosis: GI bleed ICU Day #: 2 Surgery/Procedure Performed:: EGD with attempted control of bleedin duodenal ulcer Surgeon: Earl Junior Past Medical History: Chronic Problems HTN (hypertension) (Chronic) Hyperlipidemia (Chronic) DM2 (diabetes mellitus, type 2) (Chronic) Tobacco abuse (Chronic) Smoking Status: Light Smoker (<10/day) Tobacco Use: Cigarettes Alcohol: None Drugs: None Hospital/ICU Course Hospital/ICU Course: generally stable overnight. While being transfused 2 units of packed cells, but patient suddenly became hypotensive and tachycardic at 4 AM. I was contacted. I asked for additional blood to be readied and given. We also plan for now, urgent bedside. Upper endoscopy. Patient's repeat hemoglobin dropped from 7.9-5.9 - more concerning that she was transfused 2 Uints of PRBC during this interval. Buckley catheter placed, and patient also bolused with normal saline Subjective/Objective Patient Able to Communicate Effectively?: Yes Patient Sedated & Ventilated: No Vitals/I&O/Labs: Vital Signs Temp 97.5 F L 05/06/17 08:20 Pulse 120 H 05/06/17 08:30 Resp 19 H 05/06/17 08:30 BP 89/54 L 05/06/17 08:30 Pulse Ox 98 05/06/17 08:30 Intake & Output 05/04/17 05/05/17 05/06/17 23:59 23:59 23:59 Intake Total 1770 / 1770 6237 / 6237 Output Total 500 / 500 550 / 550 Balance 1270 / 1270 5687 / 5687 Weight: 75.7 kg 78.1 kg Intake: IV fluid/meds 1370 / 1370 4037 / 4037 Blood Product 400 / 400 2200 / 2200 Leuko-Reduced Red Blood Cells 400 / 400 Unit [id number] Leuko-Reduced Red Blood Cells 400 / 400 Unit [id number] Leuko-Reduced Red Blood Cells 400 / 400 Unit [id number] Leuko-Reduced Red Blood Cells 400 / 400 Unit [id number] Leuko-Reduced Red Blood Cells 400 / 400 Unit [id number] Output: Urine 500 / 500 550 / 550 Laboratory Tests Past 24 Hrs 05/05/17 05/05/17 05/05/17 11:00 15:35 22:00 WBC 11.5 H 9.3 RBC 2.54 L 2.41 L Hgb 7.7 L 7.4 L Hct 22.3 L 21.1 L MCV 87.8 87.6 MCH 30.3 30.7 MCHC 34.5 35.1 RDW 13.6 14.0 RDW Differential 43.5 44.2 H Plt Count 174 166 MPV 10.5 10.3 Immature Gran % (Auto) 0.200 0.100 Neut % (Auto) 68.3 63.3 Lymph % (Auto) 20.7 27.0 [place] % (Auto) 10.6 H 8.8 Eos % (Auto) 0.1 0.6 Baso % (Auto) 0.1 0.2 Absolute Neuts (auto) 7.9 H 5.9 Absolute Lymphs (auto) 2.38 2.52 Total Counted Not Reportable Not Reportable Diff Path Review Sodium Potassium Chloride Carbon Dioxide Anion Gap BUN Creatinine Estim Creat Clear Calc Est GFR (MDRD) Af Amer Est GFR (MDRD) Non-Af BUN/Creatinine Ratio Glucose Calcium MRSA (PCR) Negative 05/06/17 05/06/17 05:10 05:10 WBC 9.8 RBC 1.86 L Hgb 5.7 L* Hct 16.9 L MCV 90.9 MCH 30.6 MCHC 33.7 RDW 13.8 RDW Differential 41.9 Plt Count 147 L MPV 11.1 Immature Gran % (Auto) 0.200 Neut % (Auto) 73.1 H Lymph % (Auto) 17.2 L [place] % (Auto) 9.2 Eos % (Auto) 0.1 Baso % (Auto) 0.2 Absolute Neuts (auto) 7.2 Absolute Lymphs (auto) 1.69 Total Counted Not Reportable Diff Path Review Reviewed Sodium 145 Potassium 3.8 Chloride 115 H Carbon Dioxide 21.0 Anion Gap 9 BUN 27 H Creatinine 0.56 Estim Creat Clear Calc 40.81 Est GFR (MDRD) Af Amer 137 Est GFR (MDRD) Non-Af 113 BUN/Creatinine Ratio 48.0 H Glucose 152 H Calcium 6.2 L* MRSA (PCR) Alert & Oriented:: x3 Cardiovascular: Tachycardic - GI Abdomen: Bowel Sounds Present, Non Tender, Non-Distended, Hyperactive Bowel Sounds Assessment/Plan acute blood loss anemia-most likely upper GI bleed overall, the patient was stable while she was being transfused until 4 AM at which point the patient became acutely tachycardic and hypertensive. The above maneuvers were undertaken. Upper endoscopy was performed at the bedside and this demonstrated active bleeding with the bright red clot adherent in the duodenal bulb. Attempts to remove the clot were initially unsuccessful and when the clot was able to be removed. There was more active bleeding. This prevented good visualization of the true bleeding source. A clot partially reformed and slowed the bleeding at which point epinephrine was injected in the vicinity of the bleeder. This seemed to temporize and give some degree of hemostasis, but given the overall blood loss, the fact that this took over 1 hour to attempt to control, and that the patient had a very large risk of rebleeding, we recommended and elected to transfer the patient to tertiary care center where other imaging such as interventional angiography/angiographic embolization could be performed if needed.
--- NOTE | 2017-05-06 15:11 | PN_ITS ---
Past Medical History Admit Diagnosis: GI bleed ICU Day #: 2 Surgery/Procedure Performed:: EGD with attempted control of bleedin duodenal ulcer Surgeon: Earl Junior Past Medical History: Chronic Problems HTN (hypertension) (Chronic) Hyperlipidemia (Chronic) DM2 (diabetes mellitus, type 2) (Chronic) Tobacco abuse (Chronic) Smoking Status: Light Smoker (<10/day) Tobacco Use: Cigarettes Alcohol: None Drugs: None Hospital/ICU Course Hospital/ICU Course: generally stable overnight. While being transfused 2 units of packed cells, but patient suddenly became hypotensive and tachycardic at 4 AM. I was contacted. I asked for additional blood to be readied and given. We also plan for now, urgent bedside. Upper endoscopy. Patient's repeat hemoglobin dropped from 7.9-5.9 - more concerning that she was transfused 2 Uints of PRBC during this interval. Buckley catheter placed, and patient also bolused with normal saline Subjective/Objective Patient Able to Communicate Effectively?: Yes Patient Sedated & Ventilated: No Vitals/I&O/Labs: Vital Signs Temp 97.5 F L 05/06/17 08:20 Pulse 120 H 05/06/17 08:30 Resp 19 H 05/06/17 08:30 BP 89/54 L 05/06/17 08:30 Pulse Ox 98 05/06/17 08:30 Intake & Output 05/04/17 05/05/17 05/06/17 23:59 23:59 23:59 Intake Total 1770 / 1770 6237 / 6237 Output Total 500 / 500 550 / 550 Balance 1270 / 1270 5687 / 5687 Weight: 75.7 kg 78.1 kg Intake: IV fluid/meds 1370 / 1370 4037 / 4037 Blood Product 400 / 400 2200 / 2200 Leuko-Reduced Red Blood Cells 400 / 400 Unit [id number] Leuko-Reduced Red Blood Cells 400 / 400 Unit [id number] Leuko-Reduced Red Blood Cells 400 / 400 Unit [id number] Leuko-Reduced Red Blood Cells 400 / 400 Unit [id number] Leuko-Reduced Red Blood Cells 400 / 400 Unit [id number] Output: Urine 500 / 500 550 / 550 Laboratory Tests Past 24 Hrs 05/05/17 05/05/17 05/05/17 11:00 15:35 22:00 WBC 11.5 H 9.3 RBC 2.54 L 2.41 L Hgb 7.7 L 7.4 L Hct 22.3 L 21.1 L MCV 87.8 87.6 MCH 30.3 30.7 MCHC 34.5 35.1 RDW 13.6 14.0 RDW Differential 43.5 44.2 H Plt Count 174 166 MPV 10.5 10.3 Immature Gran % (Auto) 0.200 0.100 Neut % (Auto) 68.3 63.3 Lymph % (Auto) 20.7 27.0 [place] % (Auto) 10.6 H 8.8 Eos % (Auto) 0.1 0.6 Baso % (Auto) 0.1 0.2 Absolute Neuts (auto) 7.9 H 5.9 Absolute Lymphs (auto) 2.38 2.52 Total Counted Not Reportable Not Reportable Diff Path Review Sodium Potassium Chloride Carbon Dioxide Anion Gap BUN Creatinine Estim Creat Clear Calc Est GFR (MDRD) Af Amer Est GFR (MDRD) Non-Af BUN/Creatinine Ratio Glucose Calcium MRSA (PCR) Negative 05/06/17 05/06/17 05:10 05:10 WBC 9.8 RBC 1.86 L Hgb 5.7 L* Hct 16.9 L MCV 90.9 MCH 30.6 MCHC 33.7 RDW 13.8 RDW Differential 41.9 Plt Count 147 L MPV 11.1 Immature Gran % (Auto) 0.200 Neut % (Auto) 73.1 H Lymph % (Auto) 17.2 L [place] % (Auto) 9.2 Eos % (Auto) 0.1 Baso % (Auto) 0.2 Absolute Neuts (auto) 7.2 Absolute Lymphs (auto) 1.69 Total Counted Not Reportable Diff Path Review Reviewed Sodium 145 Potassium 3.8 Chloride 115 H Carbon Dioxide 21.0 Anion Gap 9 BUN 27 H Creatinine 0.56 Estim Creat Clear Calc 40.81 Est GFR (MDRD) Af Amer 137 Est GFR (MDRD) Non-Af 113 BUN/Creatinine Ratio 48.0 H Glucose 152 H Calcium 6.2 L* MRSA (PCR) Alert & Oriented:: x3 Cardiovascular: Tachycardic - GI Abdomen: Bowel Sounds Present, Non Tender, Non-Distended, Hyperactive Bowel Sounds Assessment/Plan acute blood loss anemia-most likely upper GI bleed overall, the patient was stable while she was being transfused until 4 AM at which point the patient became acutely tachycardic and hypertensive. The above maneuvers were undertaken. Upper endoscopy was performed at the bedside and this demonstrated active bleeding with the bright red clot adherent in the duodenal bulb. Attempts to remove the clot were initially unsuccessful and when the clot was able to be removed. There was more active bleeding. This prevented good visualization of the true bleeding source. A clot partially reformed and slowed the bleeding at which point epinephrine was injected in the vicinity of the bleeder. This seemed to temporize and give some degree of hemostasis, but given the overall blood loss, the fact that this took over 1 hour to attempt to control, and that the patient had a very large risk of rebleeding, we recommended and elected to transfer the patient to tertiary care center where other imaging such as interventional angiography/angiographic embolization could be performed if needed.
== END 2017-05-06 08:45 | disposition short-term general hospital (02) | DRG 377 ==
LOC: ED 09:06 → ICU 10:21
PROVIDERS: Surgery; Emergency Provider Emergency Medicine; Family Provider Family Medicine; PCP Family Medicine
PROC: 0DJ08ZZ Inspection of Upper Intestinal Tract, Via Natural or Artificial Opening Endoscopic (ICD-10-PCS; CPT 43235; principal; 2017-05-06 10:40)
DX: K26.4 Chronic or unspecified duodenal ulcer with hemorrhage (principal); R57.8 Other shock; N17.9 Acute kidney failure, unspecified; E87.2 Acidosis; D62 Acute posthemorrhagic anemia; F17.210 Nicotine dependence, cigarettes, uncomplicated; I10 Essential (primary) hypertension; E11.9 Type 2 diabetes mellitus without complications; E78.5 Hyperlipidemia, unspecified; Z79.84 Long term (current) use of oral hypoglycemic drugs; E87.6 Hypokalemia
CPT/HCPCS: 71045; 74176; 80048; 80076; 81001; 82803; 82962; 83605; 83690; 84484; 85025; 85610; 86850; 86900; 86920; 86922; 87641; 93005; 96361; 96374; 97802; 99284; 99285; 99406; J7030; J7040; J7050; J7120; P9016; A4216; J0610; J2405

== ENCOUNTER → 2017-05-23 14:31 | Outpatient (CLI) | payer MEDICARE, OTHER, SELFPAY ==
[2017-05-23 15:24] LABS: Hemoglobin A1c 5.7 % (4.2-6.3)
== END ==
PROVIDERS: Visit Provider Nurse Practitioner
DX: E11.9 Type 2 diabetes mellitus without complications (principal)
CPT/HCPCS: 36415; 83036

== ENCOUNTER → 2017-09-20 16:02 | Outpatient (CLI) | payer MEDICARE, OTHER, SELFPAY ==
[2017-09-21 08:25] LABS: PTHIN 50.5 pg/mL (18.4-80.1)
== END ==
PROVIDERS: Visit Provider Nurse Practitioner
DX: E83.51 Hypocalcemia (principal)
CPT/HCPCS: 36415; 82330; 82652; 83970

== ENCOUNTER → 2018-02-07 10:11 | Outpatient (CLI) | payer MEDICARE, OTHER, SELFPAY ==
--- NOTE | 2018-02-07 10:21 | MRI_ITS ---
STUDY: MRI LOWER EXTREMITY RIGHT THIGH REASON FOR EXAM: Pain at the lateral distal thigh, difficulty walking, evaluate for soft tissue mass at skin marker. TECHNIQUE: Standardized fat and water weighted pulse sequences were obtained in all 3 orthogonal planes. COMPARISON: None. FINDINGS: Normal subcutis adipose space. There specifically is no discrete soft tissue mass corresponding to the skin marker at the lateral distal thigh (T1 axial images 10, 11). Normal visualized quadriceps, adductor and hamstring muscles. Normal quadriceps extensor mechanism with normal visualized rectus femoris, vastus medialis, intermedius and lateralis muscles. Normal visualized femur. There are degenerative changes of the medial femorotibial compartment of the right knee (T1 coronal image 13) and patellofemoral compartment (T2 sagittal image 10). There is mild lateral tilt of the patella (T1 axial image 26) without patellar subluxation. MRI/Lower Ext/No Jt/w/o IMPRESSION: Degenerative changes of the right knee and mild lateral tilt of the patella. Otherwise, unremarkable MRI of the visualized right thigh without demonstrated soft tissue mass. Electronically Signed: Ayo Winchester MD at 13:42 EST Tel , Service support ,
--- OUTSIDE RECORDS SUMMARY | 2018-03-26 10:28 | XMS RPT_ITS ---
:1945 Author Organization OHIP Support Name Relationship Address Phone LUIS ALFREDO SCHUSTER Unavailable [address] + [place] [address] BAL, LIOR Unavailable [address] + [place] [address] R Unavailable Unavailable Unavailable BAL, LIOR Unavailable [address] + [place] [address] R Unavailable Unavailable Unavailable BAL, LIOR Unavailable [address] + [place] [address] R Unavailable Unavailable Unavailable BAL, LIOR Unavailable [address] + [place] [address] R Unavailable Unavailable Unavailable BAL, LIOR Unavailable [address] + [place] [address] R Unavailable Unavailable Unavailable BAL, LIOR Unavailable [address] + [place] [address] R Unavailable Unavailable Unavailable BAL, LIOR Unavailable [address] + [place] [address] R Unavailable Unavailable Unavailable Bal, Lior Unavailable Unavailable + BAL, LIOR Unavailable [address] + [place] [address] R Unavailable Unavailable Unavailable BAL, LIOR Unavailable [address] + [place] [address] R Unavailable Unavailable Unavailable BAL, LIOR Unavailable [address] + [place] [address] R Unavailable Unavailable Unavailable BAL, LIOR Unavailable [address] + [place] [address] R Unavailable Unavailable Unavailable BAL, LIOR Unavailable [address] + [place] [address] R Unavailable Unavailable Unavailable LIOR MOY Unavailable [address] + [place] [address] R Unavailable Unavailable Unavailable ADIA MOYI Unavailable [address] + [place] [address] R Unavailable Unavailable Unavailable LIOR MOY Unavailable [address] + [place] [address] R Unavailable Unavailable Unavailable Care Team Providers Name Role Phone LEATHA HARVEY (BOBBIN COLLECTOR) Attending Unavailable EDNA LAZO Referring Unavailable MAR ALCOCER Admitting Unavailable MAR ALCOCER Attending Unavailable LEATHA HARVEY (BOBBIN COLLECTOR) Referring Unavailable LEATHA HARVEY (BOBBIN COLLECTOR) Attending Unavailable LEATHA HARVEY (BOBBIN COLLECTOR) Referring Unavailable PROVIDER, UNKNOWN Referring Unavailable Jenny, PCP Primary Care Unavailable Daryl Garcia Attending Unavailable Omar Bryant Attending Unavailable SchOmar he E Referring Unavailable Schchevyner Omar E Primary Care Unavailable Omar Bryant Attending Unavailable Omar Bryant E Referring Unavailable SchOmar he E Primary Care Unavailable SchOmar he E Primary Care Unavailable Dawna Veras Attending Unavailable SchOmar he E Primary Care Unavailable Jopperi, Cornell Admitting Unavailable Jopperi, Cornell Attending Unavailable Alex Harry Consulting Unavailable Vernon Mar Consulting Unavailable Jopperi, Cornell Admitting Unavailable Jopperi, Cornell Attending Unavailable Schinner, Omar E Primary Care Unavailable Jopperi, Cornell Consulting Unavailable Jopperi, Cornell Admitting Unavailable Jopperi, Cornell Attending Unavailable Schinner, Omar E Primary Care Unavailable Alex Harry Consulting Unavailable Mar Alcocer Consulting Unavailable Venitapperi, Cornell Consulting Unavailable Alex Harry Attending Unavailable Katie, Cornell Referring Unavailable Kendra Granger BOBBIN COLLECTOR-C Attending Unavailable Omar Bryant E Referring Unavailable SchchevynerOmar E Primary Care Unavailable Kendra Granger BOBBIN COLLECTOR-C Attending Unavailable Kendra Granger BOBBIN COLLECTOR-C Referring Unavailable Primay Care Physicia, No Primary Care Unavailable Omar Bryant Attending Unavailable Omar Bryant E Referring Unavailable Primay Care Physicia, No Primary Care Unavailable Iván Cortés Attending Unavailable Cornell Wilson Referring Unavailable Kendra Granger BOBBIN COLLECTOR-C Attending Unavailable Omar Bryant Referring Unavailable Kendra Granger BOBBIN COLLECTOR-C Attending Unavailable Primay Care Physicia, No Referring Unavailable Kendra Granger BOBBIN COLLECTOR-C Attending Unavailable Kendra Granger BOBBIN COLLECTOR-C Referring Unavailable Primay Care Physicia, No Primary Care Unavailable Rolly Juan Attending Unavailable Rolly, Juan Referring Unavailable Edna Lazo Primary Care Unavailable PROBLEMS PROBLEMS DATE TYPE CONDITION / CODE ATTENDING STATUS SOURCE Unknown M25.561 - Pain in [facility], Active [place] right knee / [facility] M25.561(ICD-10) Hospital Repository Unknown R22.41 - Localized [facility], Active [place] 8 swelling, mass and [facility] lump, right lower limb Hospital / R22.41(ICD-10) Repository Active Chronic or unspecified Shabnam ALCOCER [place] 8 peptic ulcer, site [facility] unspecified, with [place] hemorrhage / Repository K27.4(ICD-10) Unknown E83.51 - Hypocalcemia Kendra Granger Active [place] 8 / E83.51(ICD-10) [facility] Hospital Repository Unknown E11.9 - Type 2 Omar Bryant Active [place] 8 diabetes mellitus [facility] without complications Hospital / E11.9(ICD-10) Repository Unknown E58 - Dietary calcium Kendra Granger Active [place] 8 deficiency / [facility] E58(ICD-10) Hospital Repository Admitting Shock, unspecified / Rich [facility] 8 Diagnosis R57.9(ICD-10) System Repository Admitting Gastrointestinal Jose [facility] 8 Diagnosis hemorrhage, System unspecified / Repository K92.2(ICD-10) Admitting Other shock / Rich, [facility] 8 Diagnosis R57.8(ICD-10) System Repository Admitting Bacteremia / Jose [facility] 8 Diagnosis R78.81(ICD-10) System Repository Admitting Hypocalcemia / Rich, [facility] 8 Diagnosis E83.51(ICD-10) System Repository Admitting Type 2 diabetes [facility] Diagnosis mellitus without System complications / Repository E11.9(ICD-10) Admitting Elevated white blood [facility] Diagnosis cell count, System unspecified / Repository D72.829(ICD-10) Admitting Acute posthemorrhagic [facility] Diagnosis anemia / D62(ICD-10) System Repository Admitting Duodenal ulcer, unsp Jose [facility] Diagnosis as acute or chronic, System w/o hemor or perf / Repository K26.9(ICD-10) 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 / System I72.8(ICD-10) Repository Admitting Gastric ulcer, unsp as [facility] Diagnosis acute or chronic, w/o System hemor or perf / Repository K25.9(ICD-10) Admitting Obesity, unspecified / [facility] Diagnosis E66.9(ICD-10) System Repository Admitting Body mass index (BMI) [facility] Diagnosis 30.0-30.9, adult / System Z68.30(ICD-10) Repository Admitting Essential (primary) Jose [facility] Diagnosis hypertension / System I10(ICD-10) Repository Admitting Hyperlipidemia, [facility] Diagnosis unspecified / System E78.5(ICD-10) Repository Admitting Anxiety disorder, Jose [facility] Diagnosis unspecified / System F41.9(ICD-10) Repository Admitting Major depressive Jose [facility] Diagnosis disorder, single System episode, unspecified / Repository F32.9(ICD-10) Admitting Nicotine dependence, Jose [facility] Diagnosis cigarettes, System uncomplicated / Repository F17.210(ICD-10) Admitting Hypokalemia / Rich, [facility] 8 Diagnosis E87.6(ICD-10) System Repository Unknown R94.31 - Abnormal Iván Cortés Active [place] 8 electrocardiogram Community [ECG] [EKG] / Hospital R94.31(ICD-10) Repository PROCEDURES PROCEDURES No Procedure Records FoundRESULTS RESULTS LOWER EXT/NO JT/W/O Observed: 02/07/2018 Status: F Source: [place] 10:24 AM [facility] REPOSITORY [facility] Imaging Services [address] [place] [address] Lower Ext/No Jt/w/o MR#: [id number] Acct: [id number] Name: GABY SCHUSTER Rep #: [id number] : 1945 F 73 From: Ayo Winchester MD PCP: Edna Lazo MD Status: REG CLI Study: Lower Ext/No Jt/w/o Date of Exam: 02/07/18 Exam# [id number] Ordering Dr: Juan Lofton MD STUDY: MRI LOWER EXTREMITY RIGHT THIGH REASON FOR EXAM: Pain at the lateral distal thigh, difficulty walking, evaluate for soft tissue mass at skin marker. TECHNIQUE: Standardized fat and water weighted pulse sequences were obtained in all 3 orthogonal planes. COMPARISON: None. FINDINGS: Normal subcutis adipose space. There specifically is no discrete soft tissue mass corresponding to the skin marker at the lateral distal thigh (T1 axial images 10, 11). Normal visualized quadriceps, adductor and hamstring muscles. Normal quadriceps extensor mechanism with normal visualized rectus femoris, vastus medialis, intermedius and lateralis muscles. Normal visualized femur. There are degenerative changes of the medial femorotibial compartment of the right knee (T1 coronal image 13) and patellofemoral compartment (T2 sagittal image 10). There is mild lateral tilt of the patella (T1 axial image 26) without patellar subluxation. MRI/Lower Ext/No Jt/w/o IMPRESSION: Degenerative changes of the right knee and mild lateral tilt of the patella. Otherwise, unremarkable MRI of the visualized right thigh without demonstrated soft tissue mass. Electronically Signed: Ayo Winchester MD at 13:42 EST Tel , Service support , CC: Edna Lazo MD; Juan Lofton Import Dispatcher: Signed CNOV Observed: 11/24/2017 Status: COMPLETED Source: [place] 9:00 AM [facility] RE[facility] GABY SCHUSTER ([id number]) 1945 F Date Time Provider Department 11/24/17 9:00 AM LEATHA HARVEY (VANESSA) [facility] During your visit today, we recorded the following information about you: Pulse Blood pressure Weight Height 81/minute 124/83 75.8 kg 1.575 m Leatha Harvey RN STABBER.[facility] 11/24/2017 9:28 AM Signed Gaby Schuster a 72 year old female who is returning for follow up regarding upper GI bleed. I saw the patient in consultation on 10/24/17. That note has been reviewed. The patient was seen by Dr. Alcocer for upper endoscopy 11/08/17 for follow-up of acute duodenal ulcer with hemorrhage and obstruction . The procedure report has been reviewed and findings as follows: Impression: ? ? - Normal examined jejunum. ? - Normal examined duodenum. ? - Gastritis. Biopsied. ? - Normal lower third of esophagus. Biopsied. ? - Normal middle third of esophagus. Biopsied. FINAL DIAGNOSIS 1. Gastric antrum, biopsy (A) - No significant pathologic change. 2. Distal and mid esophagus, biopsies (B and C) - Fragments of unremarkable squamous mucosa. - No evidence of eosinophilia. I have reviewed the procedure and pathology reports, as well as the images, with the patient. Presenting complaint: Taking pantoprazole twice a day. Feels great. Denies any GI complaints. No altered bowel habits from the PPI. No blood or black stool. No pain. REVIEW OF SYSTEMS: GENERAL: No weight loss, malaise or fevers GI: The patient states that her appetite has been good. She does get hungry. There has been no nausea, no vomiting. She denies dysphagia and denies odynophagia. There has not been indigestion or heartburn. There has not been regurgitation. Bowel habits have been regular. There has not been diarrhea. There has not been constipation. The patient denies rectal bleeding. There has not been melena. No abdominal pain. All other reviewed and negative other than HPI. PAST MEDICAL HISTORY Diagnosis Date - Diabetes (HCC) - Hypertension PAST SURGICAL HISTORY Procedure Laterality Date - EGD W/O OR W/BRUSH/WASH 11/08/2017 EGD - EGD WITH CONTROL OF BLEED, 05/06/2017 hemorrhagic shock - SPINAL FUSION,ANT,EA ADNL LEVEL 12/2015 FAMILY HISTORY Problem Relation Age of Onset - Alzheimer's Disease Mother - Pancreatic Cancer Father Current Outpatient Prescriptions: pantoprazole DR (PROTONIX) 40 mg tablet Take 40 mg by mouth once daily. Disp: Rfl: citalopram (CELEXA) 20 mg tablet Take 20 mg by mouth once daily. Disp: Rfl: gabapentin (NEURONTIN) 100 mg capsule Take 100 mg by mouth twice daily. Disp: Rfl: glimepiride (AMARYL) 1 mg tablet Take 1 mg by mouth daily with breakfast. Disp: Rfl: Hydrochlorothiazide 12.5 mg capsule Take 12.5 mg by mouth once daily. Disp: Rfl: potassium chloride (KLOR-CON 10 ORAL) Take by mouth once daily. Disp: Rfl: lisinopril (ZESTRIL, PRINIVIL) 5 mg tablet Take 5 mg by mouth once daily. Disp: Rfl: LORazepam (ATIVAN) 0.5 mg tab Take by mouth as needed. Disp: Rfl: metFORMIN ER (GLUCOPHAGE XR) 750 mg 24 hr tablet Take 750 mg by mouth daily with breakfast. Disp: Rfl: zolpidem (AMBIEN) 10 mg tab Take by mouth once daily. Disp: Rfl: acetaminophen (TYLENOL EXTRA STRENGTH ORAL) Take 1,000 mg by mouth twice daily. Disp: Rfl: No current facility-administered medications for this visit. SOCIAL HISTORY: Unchanged. PHYSICAL EXAMINATION: Blood pressure 124/83, pulse 81, height 157.5 cm (5' 2), weight 75.8 kg (167 lb). General Appearance: Well appearing, alert, in no acute distress, well-hydrated, well nourished.. Skin: Skin color, texture, turgor normal, no suspicious rashes or lesions. Eyes: Anicteric sclera. Pupils are equally round and reactive to light. Extraocular movements are intact. . Neck: Supple, no adenopathy; thyroid symmetric, normal size, no bruits. Lungs: Lungs clear to auscultation. No wheezing, rhonchi, rales. Heart: RRR without murmur, gallop, or rubs. No ectopy. Abdomen: Normal abdominal exam, Abdomen soft, non-tender. Bowel sounds normal. No masses, organomegaly. Extremities: No deformities, edema, skin discoloration, clubbing or cyanosis. Good capillary refill. . Impression: gastritis 2)prior upper GI bleed Plan: The patient will continue twice daily pantoprazole for 8 more weeks. Then, will decrease to daily and see how she gets along. Follow up as needed. Smoking cessation recommended and she acknowledges need to do so. I have personally interviewed and examined this patient. I have reviewed the information that the MA entered for this encounter. I spent 20 minutes in the visit, with greater than 50% of the total [id number] time of the visit in counseling and coordination of care. Leatha Harvey RN STABBER.JACKY Harvey RN STABBER.JACKY 11/24/2017 9:19 AM Signed Continue pantoprazole twice a day for 8 weeks. Then, we will decrease to daily and see how you get along. Call or stop in when you picker / packer the second refill, so that I can send in the new one, for once a day. Referring Provider: LEATHA HARVEY (VANESSA) [[id number]] Allergies As of Date: 11/24/2017 Noted Allergy Reaction [id number] REDUCTASE INHIBIT*10/24/2017 14 - Other: See Comments Comments: Muscle Pain Date Reviewed: 11/24/2017 Reviewed by: Melissa Humphreys Ma - Fully Assessed Reason for Visit: Surgical Followup [104] Primary Visit Diagnosis:Peptic ulcer with hemorrhage [K27.4] Other Visit Diagnosis:Gastritis and gastroduodenitis [K29.70, K29.90] Order(s):pantoprazole DR (PROTONIX) 40 mg tabletTake 1 tablet by mouth twice daily before meals.Disp: 60 tabletRfl: 1 Prescriptions as of 11/24/2017 Sig: PANTOPRAZOLE 40 MG TABLET,DEL* Take 1 tablet by mouth twice * CITALOPRAM 20 MG TABLET Take 20 mg by mouth once haley* GABAPENTIN 100 MG CAPSULE Take 100 mg by mouth twice da* GLIMEPIRIDE 1 MG TABLET Take 1 mg by mouth daily with* HYDROCHLOROTHIAZIDE 12.5 MG C* Take 12.5 mg by mouth once da* KLOR-CON 10 ORAL Take by mouth once daily. LISINOPRIL 5 MG TABLET Take 5 mg by mouth once daily. LORAZEPAM 0.5 MG TABLET Take by mouth as needed. METFORMIN ER 750 MG TABLET,EX* Take 750 mg by mouth daily wi* ZOLPIDEM 10 MG TABLET Take by mouth once daily. TYLENOL EXTRA STRENGTH ORAL Take 1,000 mg by mouth twice * Problem List As Of Date 11/24/2017 Noted Resolved Peptic ulcer with hemorrhage [K27.4] INVALID FOR* More... Peptic ulcer hemorrhage [K27.4] INVALID FOR* More... Other instructions from your clinician: Continue pantoprazole twice a day for 8 weeks. Then, we will decrease to daily and see how you get along. Call or stop in when you picker / packer the second refill, so that I can send in the new one, for once a day. Prescriptions ordered this encounter Disp Refills Start End PANTOPRAZOLE 40 MG TABLET,DELAYED RE* 60 t* 1 11/24/2017 Route: ORAL Sig: Take 1 tablet by mouth twice daily before meals. Medications Discontinued During This Encounter pantoprazole DR (PROTONIX) 40 mg tab* 11/24/2017 Class: Historical Med Route: ORAL Sig: Take 40 mg by mouth once daily. Disc: Reason for discontinue is not on file. Encounter Status:Closed by LEATHA HARVEY CNP on 11/24/17 PROGRESS Observed: 11/22/2017 Status: COMPLETED Source: [place] 10:22 AM [facility] RE[facility]ITORY [facility] ID: [id number] Author: Leatha Harvey Service: (none) Author Type: Nurse Practitioner Type: Progress Notes Filed: 11/24/2017 9:28 AM Note Text: Gaby Schuster a 72 year old female who is returning for follow up regarding upper GI bleed. I saw the patient in consultation on 10/24/17. That note has been reviewed. The patient was seen by Dr. Alcocer for upper endoscopy 11/08/17 for follow-up of acute duodenal ulcer with hemorrhage and obstruction . The procedure report has been reviewed and findings as follows: Impression: ? ? - Normal examined jejunum. ? - Normal examined duodenum. ? - Gastritis. Biopsied. ? - Normal lower third of esophagus. Biopsied. ? - Normal middle third of esophagus. Biopsied. FINAL DIAGNOSIS 1. Gastric antrum, biopsy (A) - No significant pathologic change. 2. Distal and mid esophagus, biopsies (B and C) - Fragments of unremarkable squamous mucosa. - No evidence of eosinophilia. I have reviewed the procedure and pathology reports, as well as the images, with the patient. Presenting complaint: Taking pantoprazole twice a day. Feels great. Denies any GI complaints. No altered bowel habits from the PPI. No blood or black stool. No pain. REVIEW OF SYSTEMS: GENERAL: No weight loss, malaise or fevers GI: The patient states that her appetite has been good. She does get hungry. There has been no nausea, no vomiting. She denies dysphagia and denies odynophagia. There has not been indigestion or heartburn. There has not been regurgitation. Bowel habits have been regular. There has not been diarrhea. There has not been constipation. The patient denies rectal bleeding. There has not been melena. No abdominal pain. All other reviewed and negative other than HPI. PAST MEDICAL HISTORY Diagnosis Date - Diabetes (HCC) - Hypertension PAST SURGICAL HISTORY Procedure Laterality Date - EGD W/O OR W/BRUSH/WASH 11/08/2017 EGD - EGD WITH CONTROL OF BLEED, 05/06/2017 hemorrhagic shock - SPINAL FUSION,ANT,EA ADNL LEVEL 12/2015 FAMILY HISTORY Problem Relation Age of Onset - Alzheimer's Disease Mother - Pancreatic Cancer Father Current Outpatient Prescriptions: pantoprazole DR (PROTONIX) 40 mg tablet Take 40 mg by mouth once daily. Disp: Rfl: citalopram (CELEXA) 20 mg tablet Take 20 mg by mouth once daily. Disp: Rfl: gabapentin (NEURONTIN) 100 mg capsule Take 100 mg by mouth twice daily. Disp: Rfl: glimepiride (AMARYL) 1 mg tablet Take 1 mg by mouth daily with breakfast. Disp: Rfl: Hydrochlorothiazide 12.5 mg capsule Take 12.5 mg by mouth once daily. Disp: Rfl: potassium chloride (KLOR-CON 10 ORAL) Take by mouth once daily. Disp: Rfl: lisinopril (ZESTRIL, PRINIVIL) 5 mg tablet Take 5 mg by mouth once daily. Disp: Rfl: LORazepam (ATIVAN) 0.5 mg tab Take by mouth as needed. Disp: Rfl: metFORMIN ER (GLUCOPHAGE XR) 750 mg 24 hr tablet Take 750 mg by mouth daily with breakfast. Disp: Rfl: zolpidem (AMBIEN) 10 mg tab Take by mouth once daily. Disp: Rfl: acetaminophen (TYLENOL EXTRA STRENGTH ORAL) Take 1,000 mg by mouth twice daily. Disp: Rfl: No current facility-administered medications for this visit. SOCIAL HISTORY: Unchanged. PHYSICAL EXAMINATION: Blood pressure 124/83, pulse 81, height 157.5 cm (5' 2), weight 75.8 kg (167 lb). General Appearance: Well appearing, alert, in no acute distress, well-hydrated, well nourished.. Skin: Skin color, texture, turgor normal, no suspicious rashes or lesions. Eyes: Anicteric sclera. Pupils are equally round and reactive to light. Extraocular movements are intact. . Neck: Supple, no adenopathy; thyroid symmetric, normal size, no bruits. Lungs: Lungs clear to auscultation. No wheezing, rhonchi, rales. Heart: RRR without murmur, gallop, or rubs. No ectopy. Abdomen: Normal abdominal exam, Abdomen soft, non-tender. Bowel sounds normal. No masses, organomegaly. Extremities: No deformities, edema, skin discoloration, clubbing or cyanosis. Good capillary refill. . Impression: gastritis 2)prior upper GI bleed Plan: The patient will continue twice daily pantoprazole for 8 more weeks. Then, will decrease to daily and see how she gets along. Follow up as needed. Smoking cessation recommended and she acknowledges need to do so. I have personally interviewed and examined this patient. I have reviewed the information that the MA entered for this encounter. I spent 20 minutes in the visit, with greater than 50% of the total [id number] time of the visit in counseling and coordination of care. Leatha Harvey RN STABBER.SPARE PERSON NURSING PROG Observed: 11/08/2017 Status: COMPLETED Source: [place] 9:42 AM [facility] RE[facility] ID: [id number] Author: William Galarza) KANA Peña Service: Nursing Author Type: Registered Nurse Type: Nursing Progress Note Filed: 11/08/2017 9:57 AM Note Text: Patient did not experience a fall prior to discharge. Patient did not experience a burn prior to discharge. William Peña RN NURSING PROG Observed: 11/08/2017 Status: COMPLETED Source: [place] 9:36 AM [facility] ID: [id number] Author: William Galarza) KANA Peña Service: Nursing Author Type: Registered Nurse Type: Nursing Progress Note Filed: 11/08/2017 9:39 AM Note Text: Dressing to go home, friend at her side, discharged home via wheel chair, in the care of her friend. Dr Alcocer to step in to visit, no complaints, all safety maintained. PT ED Observed: 11/08/2017 Status: COMPLETED Source: [place] 9:30 AM [facility] ID: [id number] Author: William Galarza) KANA Peña Service: Nursing Author Type: Registered Nurse Type: Patient Education Filed: 11/08/2017 9:40 AM Note Text: POST OP LEARNING RESPONSE INSTRUCTION PROVIDED TO: Patient and friend/other METHOD OF INSTRUCTION: Individual instruction Written instruction - handouts Verbal instruction PATIENT / FAMILY RESPONSE: Information received as demonstrated by interest and questions FOLLOW-UP PLAN: Patient instructed to call with any further issues SUPPLEMENTAL MATERIAL: None REFERRAL (RECOMMENDATION): None Electronically Signed By: William Peña RN In Department: AMBULATORY SURGERY NURSING PROG Observed: 11/08/2017 Status: COMPLETED Source: [place] 9:23 AM [facility] ID: [id number] Author: William PriceRn) KANA Peña Service: Nursing Author Type: Registered Nurse Type: Nursing Progress Note Filed: 11/08/2017 9:24 AM Note Text: Friend to her side, tolerating snack, no complaints, all safety maintained. NURSING PROG Observed: 11/08/2017 Status: COMPLETED Source: [place] 9:07 AM [facility] ID: [id number] Author: William PriceRn) KANA Peña Service: Nursing Author Type: Registered Nurse Type: Nursing Progress Note Filed: 11/08/2017 9:10 AM Note Text: Dr Alcocer to visit with patient. NURSING PROG Observed: 11/08/2017 Status: COMPLETED Source: [place] 9:00 AM [facility] ID: [id number] Author: William PriceRn) KANA Peña Service: Nursing Author Type: Registered Nurse Type: Nursing Progress Note Filed: 11/08/2017 9:03 AM Note Text: Pt into Endo recovery room in satisfactory condition. Resting on left side. Pt. sleepy but arousable. Abdomen soft, no complaints, all safety maintained. Will continue to monitor. NURSING PROG Observed: 11/08/2017 Status: COMPLETED Source: [place] 8:56 AM [facility] ID: [id number] Author: Olamide Galarza) KANA Ceballos Service: Nursing Author Type: Registered Nurse Type: Nursing Progress Note Filed: 11/08/2017 8:56 AM Note Text: Patient did not experience a fall within the Intraoperative area. Patient did not experience a burn within the Intraoperative area. Olamide Ceballos RN NURSING PROG Observed: 11/08/2017 Status: COMPLETED Source: [place] 8:36 AM [facility] HNO ID: [id number] Author: Willow PriceRnIvet Mccallum RN Service: (none) Author Type: Registered Nurse Type: Nursing Progress Note Filed: 11/08/2017 8:37 AM Note Text: [facility] PRE-OP NURSING HAND OFF NOTE SBAR Hand off given to Olamide Ceballos RN. Hand off was communicated verbally and at the patient's bedside and all questions were answered. FALLS/PARTIDA Patient did not experience a fall within the Preoperative area. Patient did not experience a burn within the Preoperative area. Willow Mccallum RN PT ED Observed: 11/08/2017 Status: COMPLETED Source: [place] 8:11 AM [facility] RE[facility] HNO ID: [id number] Author: Willow (Rn) KANA Mccallum Service: (none) Author Type: Registered Nurse Type: Patient Education Filed: 11/08/2017 8:12 AM Note Text: Discharge Instructions were reviewed pre-operatively with the patient. All questions and concerns were addressed. Willow Mccallum RN PRE OP LEARNING ASSESSMENT PROCEDURE/SURGERY: GI PROCEDURES: EGD READINESS TO LEARN COGNITIVE ABILITY: Alert and oriented MOTIVATION TO LEARN: Interested FAMILY SUPPORT: Unable to assess - Family not present PATIENT LEARNS BEST BY: Multiple Methods FACTORS AFFECTING LEARNING: None PHYSICAL LIMITATIONS AFFECTING LEARNING: None Electronically Signed By: Willow Mccallum RN In Department: AMBULATORY SURGERY SURGICAL PATHOLOGY Observed: 11/08/2017 Status: F Source: [place] 12:00 AM [facility] Specimen originated from [facility] Specimen #: [id number] Submitting Physician: MAR ALCOCER ([id number]) FINAL DIAGNOSIS 1. Gastric antrum, biopsy (A) - No significant pathologic change. 2. Distal and mid esophagus, biopsies (B and C) - Fragments of unremarkable squamous mucosa. - No evidence of eosinophilia. NEIL/addi 11/10/2017 Omar Ferguson M.D. (Electronic Signature) SPECIMEN SUBMITTED A: ANTRUM, BIOPSY B: DISTAL ESOPHAGUS, BIOPSY C: MID-ESOPHAGUS, BIOPSY CLINICAL DATA K27.4 A) H/H GROSS DESCRIPTION A. Received in formalin is an irregular shaped segment of yellow-gibson soft tissue measuring 0.6 x 0.2 x 0.1 cm. The specimen is totally submitted in formalin in one cassette. B. Received in formalin is one irregular shaped segment of gibson-white feathery soft tissue measuring 0.8 x 0.2 x 0.1 cm. Specimen is totally submitted in formalin in one cassette. C. Received in formalin is one irregular shaped segment of gibson soft tissue measuring 0.3 x 0.3 x 0.2 cm. Specimen is totally submitted in formalin in one cassette. Gross performed at [address] 11/09/2017 9:34:39 AM Date of Report: 11/10/2017 Date of Procedure: 11/08/2017 Date of Receipt: 11/08/2017 Submitted by: MAR ALCOCER ([id number]) Location: [facility] Diagnostic [place] [address]. HOSP Observed: 10/25/2017 Status: COMPLETED Source: [place] 12:00 AM [facility] Patient:Gaby Schuster MRN: <[id number]> Height:5' 2(1.575 m) Weight:164 lb 0.4 oz (74.4 kg) Outpatient Medications as of 11/08/17: pantoprazole DR (PROTONIX) 40 mg tablet citalopram (CELEXA) 20 mg tablet gabapentin (NEURONTIN) 100 mg capsule glimepiride (AMARYL) 1 mg tablet Hydrochlorothiazide 12.5 mg capsule potassium chloride (KLOR-CON 10 ORAL) lisinopril (ZESTRIL, PRINIVIL) 5 mg tablet LORazepam (ATIVAN) 0.5 mg tab metFORMIN ER (GLUCOPHAGE XR) 750 mg 24 hr tablet zolpidem (AMBIEN) 10 mg tab acetaminophen (TYLENOL EXTRA STRENGTH ORAL) Admission/Clinic Administered Medications as of 11/08/17: lactated ringers infusion Problem List: Peptic ulcer with hemorrhage [K27.4] Peptic ulcer hemorrhage [K27.4] Allergies: Gqeoeqs-Ejh-Epz Reductase Inhibitors Date Verified: 11/08/17 Lab Values No results within the last 30 days for the following basenames: K,HCT Progress Notes ([facility]): Melissa Humphreys Ma 10/25/2017 3:00 PM Signed AMBULATORY PATIENT EDUCATION NOTE READINESS TO LEARN Cogntitive ability: Alert and oriented Motivation to learn: Interested Family support: Unable to assess - family not present Instruction provided to: Patient Patient learns best by: Individual instruction, written instruction (hand-outs), and verbal instruction. Factors affecting learning: None Physical limitations affecting learning: None LEARNING RESPONSE Diagnosis: Peptic Ulcer Hemorrhage Education topic/teaching points: Upper Endoscopy METHOD OF INSTRUCTION:Teachback:Individual instruction, written instruction (hand-outs), and verbal instruction. Patient/family response: Verbalizes understanding of pre-procedure instructions. Follow-up plan: Complete - No need for follow-up Supplemental material: None Patient instructed to check insurance benefits and precertification.Patient instructed to bring in advanced directives if applicable. Referral Entered: No Does patient have a Pacemaker or Defibrillator? No Electronically Signed By: Melissa Humphreys Ma In department: Gastroenterology HISTORY PHYSICAL Observed: 10/24/2017 Status: COMPLETED Source: [place] 8:26 AM [facility] RE[facility] ID: [id number] Author: Leatha (Vanessa) Wes Service: (none) Author Type: Nurse Practitioner Type: HANDP Filed: 10/24/2017 11:59 AM Note Text: Gaby Schuster a 72 year old female who is self referred for the evaluation of GI bleeding. The patient has been seen previously by Dr. Alcocer. Patient initially presented to the ED on 05/03 with nausea and abdominal. It was initially thought that this was due to metformin; metformin was discontinued, she was given fluids, and then discharged to home. The next day, patient had an episode of melenous stools; she became diaphoretic and clammy. Two days after initial presentation, patient had a syncopal episode at home. Her sister was present, and the rescue squad was called. At the ED, her hemoglobin was 7 (down from 13 three days prior). Overnight, she experienced more diaphoresis, and had a near-syncopal episode. She underwent EGD (by Dr. Alcocer) on 05/06 morning which showed a clot at the proximal duodenum. After irrigation, the site began to bleed again, and 5 of epi was given; however, complete hemostasis was not able to be achieved. Hg then dropped to 5. She received a total of approximately 4U of blood with 2 U given before EGD and 2U afterwards. She was transferred to [facility] ICU for possible IR vs. Surgery. GI was consulted, and patient went under Arterial angiogram on 05/06 afternoon (Celiac and superior mesenteric angiograms, microcoil embolization of distal GDA with 3 coils). After successful intervention, her tachycardia, hemoglobin, leukocytosis, hypocalcemia improved steadily. Patient tolerated clear liquids with some bloody. Physical therapy evaluated the patient and recommended discharge home with RN assist. On 05/10 patient had repeat EGD which showed normal esophagus, single non-bleeding benign appearing gastric ulcer with no bleeding and it was biopsied, another giant non-obstructing non-bleeding deep duodenal ulcer with no active bleeding in duodenal bulb, with no evidence of perforation. Patient is instructed to avoid NSAIDs, and ASA for at least 4 weeks. Smoking cessation was encouraged. Follow up with Dr. Devine (GI specialist) and sent home on Protonix and Carafate. The patient denies a family history of colon cancer. She has never had a screening colonoscopy. She is aware that [facility] providers recommended she undergo screening colonoscopy. She tells me that she isn't ready for that just yet. will consider doing that later this winter. Presenting complaint: The patient presents today reporting that her symptoms actually started around [place]. Initially thought it was related to metformin. She was having dyspepsia and vomiting. She got bad enough, in April, that her sister took her to the ED. Taking pantoprazole daily. Denies any heartburn or prior symptoms. She continues to smoke about 10 cigs a day. No alcohol. No NSAIDs. Having at least one bowel movement a day. No blood or black stool. She denies abdominal pain. REVIEW OF SYSTEMS: GENERAL: No unplanned weight loss. RESPIRATORY: Negative for cough, hemoptysis, wheezing, COPD, dyspnea or shortness of breath CARDIOVASCULAR: Hypertension . On prescription medications. GI: The patient states that her appetite has been good. She does get hungry. There has been no nausea, no vomiting. She denies dysphagia and denies odynophagia. There has not been indigestion or heartburn. There has not been regurgitation. Bowel habits have been regular. There has not been diarrhea. There has not been constipation. The patient denies rectal bleeding. There has not been melena. No abdominal pain. PSYCH: Positive for depression and anxiety. Taking Celexa. HEMATOLOGY/LYMPHOLOGY Negative for prolonged bleeding, bruising easily or swollen nodes ENDOCRINE: Positive for diabetes mellitus on oral agent. Diagnosed last year. NEURO: No history of headaches, syncope, paralysis, seizures or tremors All other reviewed and negative other than HPI. PAST MEDICAL HISTORY Diagnosis Date - Diabetes (HCC) - Hypertension PAST SURGICAL HISTORY Procedure Laterality Date - EGD WITH CONTROL OF BLEED, 05/06/2017 hemorrhagic shock - SPINAL FUSION,ANT,EA ADNL LEVEL 12/2015 FAMILY HISTORY Problem Relation Age of Onset - Alzheimer's Disease Mother - Pancreatic Cancer Father No current outpatient prescriptions on file. No current facility-administered medications for this visit. SOCIAL HISTORY: Patient is . She smokes 10 cigarretes per day and reports her alcohol use as never. PHYSICAL EXAMINATION: Blood pressure 128/82, pulse 93, height 157.5 cm (5' 2), weight 74.4 kg (164 lb). General Appearance: Well appearing, alert, in no acute distress, well-hydrated, well nourished. Skin: Skin color, texture, turgor normal, no suspicious rashes or lesions. Head: Normocephalic, no masses, lesions or abnormalities. Eyes: Anicteric sclera. Pupils are equally round and reactive to light. Extraocular movements are intact. Oropharynx: Lips, mucosa, and tongue normal, teeth and gums normal, oropharynx normal. Neck: Supple, no adenopathy; thyroid symmetric, normal size. Lungs:Faint end expiratory wheezing. Heart: RRR without murmur. Abdomen: Abdomen soft, non-tender. Bowel sounds normal. No masses, organomegaly. Extremities: No deformities, edema, skin discoloration, clubbing or cyanosis. Peripheral Pulses: Normal. Neurologic: Gait normal. Reflexes normal and symmetric. Sensation grossly intact. Impression: Peptic ulcer disease with GI bleed Plan: The patient will continue pantoprazole. The patient is scheduled for upper endoscopy. Preparation for the procedure and the procedure itself have been explained in detail. The risks, benefits, anticipated outcomes and possible complications were mentioned. I also explained the procedure in understandable terms and the patient was given printed material concerning the planned procedure. The patient had the opportunity to ask questions concerning the planned procedure. The patient freely consents to the planned procedure. The patient is asked to call with any questions or concerns, or if there is a change in health status between now and the scheduled procedure. I have personally interviewed and examined this patient. I have read the information that the MA documented in this encounter. I spent 30 minutes in the visit, with more than 50% of the total csfl-gs-vbmr time of the visit in counseling / coordination of care. Leatha Harvey RN APRN.JACKY CNOV Observed: 10/24/2017 Status: COMPLETED Source: [place] 8:20 AM [facility] GABY SCHUSTER ([id number]) 1945 F Date Time Provider Department 10/24/17 8:20 AM LEATHA HARVEY (BOBBIN COLLECTOR) [facility] During your visit today, we recorded the following information about you: Pulse Blood pressure Weight Height 93/minute 128/82 74.4 kg 1.575 m Leatha Harvey RN APRN.SPARE PERSON 10/24/2017 11:59 AM Signed Gaby Schuster a 72 year old female who is self referred for the evaluation of GI bleeding. The patient has been seen previously by Dr. Alcocer. Patient initially presented to the ED on 05/03 with nausea and abdominal. It was initially thought that this was due to metformin; metformin was discontinued, she was given fluids, and then discharged to home. The next day, patient had an episode of melenous stools; she became diaphoretic and clammy. Two days after initial presentation, patient had a syncopal episode at home. Her sister was present, and the rescue squad was called. At the ED, her hemoglobin was 7 (down from 13 three days prior). Overnight, she experienced more diaphoresis, and had a near-syncopal episode. She underwent EGD (by Dr. Alcocer) on 05/06 morning which showed a clot at the proximal duodenum. After irrigation, the site began to bleed again, and 5 of epi was given; however, complete hemostasis was not able to be achieved. Hg then dropped to 5. She received a total of approximately 4U of blood with 2 U given before EGD and 2U afterwards. She was transferred to [facility] ICU for possible IR vs. Surgery. GI was consulted, and patient went under Arterial angiogram on 05/06 afternoon (Celiac and superior mesenteric angiograms, microcoil embolization of distal GDA with 3 coils). After successful intervention, her tachycardia, hemoglobin, leukocytosis, hypocalcemia improved steadily. Patient tolerated clear liquids with some bloody. Physical therapy evaluated the patient and recommended discharge home with RN assist. On 05/10 patient had repeat EGD which showed normal esophagus, single non-bleeding benign appearing gastric ulcer with no bleeding and it was biopsied, another giant non-obstructing non-bleeding deep duodenal ulcer with no active bleeding in duodenal bulb, with no evidence of perforation. Patient is instructed to avoid NSAIDs, and ASA for at least 4 weeks. Smoking cessation was encouraged. Follow up with Dr. Devine (GI specialist) and sent home on Protonix and Carafate. The patient denies a family history of colon cancer. She has never had a screening colonoscopy. She is aware that [facility] providers recommended she undergo screening colonoscopy. She tells me that she isn't ready for that just yet. will consider doing that later this winter. Presenting complaint: The patient presents today reporting that her symptoms actually started around [place]. Initially thought it was related to metformin. She was having dyspepsia and vomiting. She got bad enough, in April, that her sister took her to the ED. Taking pantoprazole daily. Denies any heartburn or prior symptoms. She continues to smoke about 10 cigs a day. No alcohol. No NSAIDs. Having at least one bowel movement a day. No blood or black stool. She denies abdominal pain. REVIEW OF SYSTEMS: GENERAL: No unplanned weight loss. RESPIRATORY: Negative for cough, hemoptysis, wheezing, COPD, dyspnea or shortness of breath CARDIOVASCULAR: Hypertension . On prescription medications. GI: The patient states that her appetite has been good. She does get hungry. There has been no nausea, no vomiting. She denies dysphagia and denies odynophagia. There has not been indigestion or heartburn. There has not been regurgitation. Bowel habits have been regular. There has not been diarrhea. There has not been constipation. The patient denies rectal bleeding. There has not been melena. No abdominal pain. PSYCH: Positive for depression and anxiety. Taking Celexa. HEMATOLOGY/LYMPHOLOGY Negative for prolonged bleeding, bruising easily or swollen nodes ENDOCRINE: Positive for diabetes mellitus on oral agent. Diagnosed last year. NEURO: No history of headaches, syncope, paralysis, seizures or tremors All other reviewed and negative other than HPI. PAST MEDICAL HISTORY Diagnosis Date - Diabetes (HCC) - Hypertension PAST SURGICAL HISTORY Procedure Laterality Date - EGD WITH CONTROL OF BLEED, 05/06/2017 hemorrhagic shock - SPINAL FUSION,ANT,EA ADNL LEVEL 12/2015 FAMILY HISTORY Problem Relation Age of Onset - Alzheimer's Disease Mother - Pancreatic Cancer Father No current outpatient prescriptions on file. No current facility-administered medications for this visit. SOCIAL HISTORY: Patient is . She smokes 10 cigarretes per day and reports her alcohol use as never. PHYSICAL EXAMINATION: Blood pressure 128/82, pulse 93, height 157.5 cm (5' 2), weight 74.4 kg (164 lb). General Appearance: Well appearing, alert, in no acute distress, well-hydrated, well nourished. Skin: Skin color, texture, turgor normal, no suspicious rashes or lesions. Head: Normocephalic, no masses, lesions or abnormalities. Eyes: Anicteric sclera. Pupils are equally round and reactive to light. Extraocular movements are intact. Oropharynx: Lips, mucosa, and tongue normal, teeth and gums normal, oropharynx normal. Neck: Supple, no adenopathy; thyroid symmetric, normal size. Lungs:Faint end expiratory wheezing. Heart: RRR without murmur. Abdomen: Abdomen soft, non-tender. Bowel sounds normal. No masses, organomegaly. Extremities: No deformities, edema, skin discoloration, clubbing or cyanosis. Peripheral Pulses: Normal. Neurologic: Gait normal. Reflexes normal and symmetric. Sensation grossly intact. Impression: Peptic ulcer disease with GI bleed Plan: The patient will continue pantoprazole. The patient is scheduled for upper endoscopy. Preparation for the procedure and the procedure itself have been explained in detail. The risks, benefits, anticipated outcomes and possible complications were mentioned. I also explained the procedure in understandable terms and the patient was given printed material concerning the planned procedure. The patient had the opportunity to ask questions concerning the planned procedure. The patient freely consents to the planned procedure. The patient is asked to call with any questions or concerns, or if there is a change in health status between now and the scheduled procedure. I have personally interviewed and examined this patient. I have read the information that the MA documented in this encounter. I spent 30 minutes in the visit, with more than 50% of the total pjlx-ty-vaed time of the visit in counseling / coordination of care. Leatha Harvey RN STABBER.SPARE PERSON Leatha Harvey RN STABBER.SPARE PERSON 10/24/2017 8:59 AM Addendum Please follow the instructions for upper endoscopy. Your procedure will be with Dr Alcocer, on November 08. Call in if this doesn't work. Follow up with me, as directed. Referring Provider: EDNA LAZO [[id number]] Allergies As of Date: 10/24/2017 Noted Allergy Reaction [id number] REDUCTASE INHIBIT*10/24/2017 14 - Other: See Comments Comments: Muscle Pain Date Reviewed: 10/24/2017 Reviewed by: Melissa Humphreys Ma - Fully Assessed Reason for Visit: Surgical Followup [104] Primary Visit Diagnosis:Peptic ulcer hemorrhage [K27.4] Order(s):EGD [4672790] Order #: [id number] FUTURE Prescriptions as of 10/24/2017 Sig: PANTOPRAZOLE 40 MG TABLET,DEL* Take 40 mg by mouth once haley* CITALOPRAM 20 MG TABLET Take 20 mg by mouth once haley* GABAPENTIN 100 MG CAPSULE Take 100 mg by mouth twice da* GLIMEPIRIDE 1 MG TABLET Take 1 mg by mouth daily with* HYDROCHLOROTHIAZIDE 12.5 MG C* Take 12.5 mg by mouth once da* KLOR-CON 10 ORAL Take by mouth once daily. LISINOPRIL 5 MG TABLET Take 5 mg by mouth once daily. LORAZEPAM 0.5 MG TABLET Take by mouth as needed. METFORMIN ER 750 MG TABLET,EX* Take 750 mg by mouth daily wi* ZOLPIDEM 10 MG TABLET Take by mouth once daily. TYLENOL EXTRA STRENGTH ORAL Take 1,000 mg by mouth twice * Problem List As Of Date: 10/24/2017 (None) Other instructions from your clinician: Please follow the instructions for upper endoscopy. Your procedure will be with Dr Alcocer, on November 08. Call in if this doesn't work. Follow up with me, as directed. Encounter Status:Closed by LEATHA HARVEY CNP on 10/24/17 ENDOCRINOLOGY VISIT Observed: 09/21/2017 Status: F Source: [facility] RE[facility] 7:03 AM [facility] REPOSITORY [facility] [address] [place] [address] OFFICE VISIT Date of Service: 09/20/17 MR#: [id number] Acct: [id number] Name: GABY SCHUSTER Rep #: [id number] : 1945 Provider: Kendra Granger NP Age/Sex: 72/F [place] [facility] [place]: Signed HPI History of present illness Gaby Schuster is a 72 year old female who presents for follow up of diabetes type 2. Newly diagnosed in December 2016. Reports she was hospitalized due to GI bleed, had aneurism surgery, and long rehabilitation period. Is now feeling back to normal self. 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 Currently taking metformin 750mg daily and glimeride 1mg at 1/2 tab breakfast and 1/2 tab at dinner. SMBG BG 80-110 Checks 3-4 times daily At time of visit: -Pt denies symptoms of hypertensive emergency (CP,SOB,RANDHAWA, or blurred vision) and hypotension(dizziness or lightheadedness) -Pt denies symptoms of hypoglycemia ( sweaty, confusion, anxiety, tremor, hunger, palpitations) and hyperglycemia ( polydipsia, polyuria) -Pt denies potential medication adverse effect. Hypoglycemia Aware of hypoglycemia: yes, Able to self treat low BG: Yes Frequent low Blood sugar: No Has supply of glucagon: No She denies excessive thirst, increased frequency of urination, chest pain or dyspnea. Follows a diabetic diet, Is compliant with medication and is tolerating without side effects. Type: type 2 Dietary compliance: Diabetes: good Diabetes education in past year: Yes Glucose testing: demonstrates correct use of meter, understands testing schedule Physical activity: regular Exam Const General: comfortable, no acute distress Nutritional Appearance: well nourished Orientation: oriented x3 [facility] Head: normal to inspection, normocephalic Ears: hearing grossly normal bilaterally Mouth: oral mucosae normal, moist mucous membranes Teeth and gingiva: dentition normal Eyes General: appearance normal, both eyes and all related structures Eyelids: eyelids normal Conjunctivae: conjunctivae normal Sclera: sclerae normal Neck Neck: normal visual inspection, no lymphadenopathy Resp Effort AND Inspection: normal respiratory effort, able to speak in complete sentences, symmetric chest movement Auscultation: Bilateral: Clear to Auscultation Cardio Rate: regular rate Rhythm: regular rhythm Heart Sounds: S1 normal, S2 normal GI Inspection: normal to inspection Auscultation: normal bowel sounds Palpation: soft Skin General: no rashes or lesions noted Wounds: no wounds Diabetic Foot Pulses: L dorsalis pedis pulse: normal, R dorsalis pedis pulse: normal Monofilament test: Left foot: normal, Right foot: normal Neuro General: gait normal Cognition: normal cognition Speech: speech normal Extrem General: normal to inspection, no pedal edema Psych Appearance: well kempt Mental Status: mental status grossly normal Mood: congruent mood Affect: normal affect Speech and Movement: speech and movement normal Attitude: cooperative Thought Process: normal Thought Content: normal Judgment: judgment good Weight and fatigue symptoms: Denies snoring Cardiopulmonary symptoms: Denies chest pain at rest, dyspnea on exertion or lightheadedness GI symptoms: Denies constipation, diarrhea, nausea/dyspepsia or vomiting Other symptoms: Denies blurry vision or change in vision Weight and fatigue symptoms: Denies snoring Cardiopulmonary symptoms: Denies myalgias GI symptoms: Reports diarrhea; denies constipation, nausea/dyspepsia or vomiting Other symptoms: Denies blurry vision or change in vision Intake Vital Signs09/20/17 Height 5 ft 2 in 09/20/17 Weight: 161 lb 2 oz 09/20/17 Body Mass Index (BMI) 29.5 09/20/17 Blood Pressure 125/80 09/20/17 Blood Pressure Location Lt popliteal 09/20/17 Blood Pressure Position Sitting Intake Visit Reasons: 3 M FU Commercial Credit Officer Required: No Accompanied by: Self Is patient in pain?: No Allergies Lhhetzw-Glm-Xvb Reductase Inhibitor Allergy (Severe, Verified 09/20/17 15:17) Unknown Medications Citalopram [Celexa] 20 mg PO DAILY 05/03/17 [History Confirmed 09/20/17] Gabapentin [Neurontin] 100 mg PO BID 05/03/17 [History Confirmed 09/20/17] Hydrochlorothiazide 12.5 mg PO DAILY 05/03/17 [History Confirmed 09/20/17] Lorazepam [Ativan] 0.5 mg PO TID 05/03/17 [History Confirmed 09/20/17] Potassium Chloride [Klor-Con Sprinkle] 10 meq PO DAILY 05/03/17 [History Confirmed 09/20/17] Zolpidem Tartrate [Ambien] 10 mg PO DAILY 05/03/17 [History Confirmed 09/20/17] acetaminophen 500 mg capsule 500 mg PO Q4H PRN 05/23/17 [History Confirmed 09/20/17] lisinopril 10 mg tablet 5 mg PO DAILY tab 05/23/17 [History Confirmed 09/20/17] metformin 500 mg tablet 750 mg PO QDAY tab 05/23/17 [History Confirmed 09/20/17] pantoprazole 40 mg tablet,delayed release 40 mg PO BID tab 05/23/17 [History Confirmed 09/20/17] sucralfate 1 gram tablet 1 g PO Q6H 05/23/17 [History Confirmed 09/20/17] glimepiride 1 mg tablet 1 mg PO QAM #90 tab 07/06/17 [Rx Confirmed 09/20/17] Is last menstrual period known: No Post menopausal: Yes Patient : No Nurse's Note: blood sugars : low : 70 high : 103 PFSH Medical History Aneurysm (Acute) Anxiety and depression (Acute) Arthritis (Acute) Back problem (Acute) Carpal tunnel syndrome (Acute) Cataracts, bilateral (Acute) Diabetes type 2, controlled (Acute) H/O blood clots (Acute) Hyperlipidemia (Acute) Neuropathy (Acute) Stomach ulcer (Acute) h/o blood transfusions (Acute) HTN (hypertension) (Chronic) Surgical History H/O spinal fusion (Acute) History of cataract surgery (Acute) Family History Father Arthritis Hypertension Mother Hypertension Brother Hypertension Hyperlipidemia Sister Hyperlipidemia Hypertension Social History Smoking Status: Current every day smoker alcohol intake: never substance use type: does not use ROS Const Constitutional: Positive for fatigue and change in appetite; no anorexia, body ache, chills, fever(s), frequent falls, decreased energy, malaise, night sweats, weakness, weight change, sleep problems, abnormal sleep pattern, other, headache(s) or snoring Eyes Eyes: No blurry vision, change in vision, double vision, discharge, dry eyes, bulging eyes, floaters, visual disturbances, eye pain, light sensitivity, spots in vision, tunnel vision or other ENT ENT: Positive for nasal congestion and nasal discharge; no abnormal hearing, ear pain, ear discharge, ear pressure, hearing loss, tinnitus, dizziness/vertigo, balance problems, nosebleed/epistaxis, nasal obstruction, nose pain, sinus pressure, sinus pain, post nasal drip, headache(s), facial pain, dental pain, dry mouth, bad breath, hoarseness, lip swelling, mouth lesions, mouth pain, sore throat, tongue swelling, throat swelling, other, difficulty swallowing or neck pain Resp Respiratory: Positive for cough and chest congestion; no change in phlegm color, excessive phlegm production, hemoptysis, pain on inspiration, shortness of breath, pain with cough, snoring, stridor, wheezing or other Gastro GI: Positive for diarrhea; no abdominal pain, belching, bloating, change in bowel habits, change in stool character, coffee ground emesis, constipation, cramping, heartburn, difficulty swallowing, feeling full early, excessive flatus, incontinent of stools, Vomiting blood/hematemesis, blood in stool, loose stools, Black,tarry stools, nausea/dyspepsia, pain with swallowing, vomiting or other Genitourinary-Female: No difficulty urinating, burning urination, painful urination, urinary incontinence, urinary frequency, urinary urgency, urinary hesitancy, urinary retention, blood in urine, Frequent nighttime urination/ nocturia, post void dribbling, suprapubic fullness, side pain, sexual problems, genital lesions, genital itching, hot flashes, abnormal periods, abnormal vaginal bleeding, absent period, painful periods, light periods, heavy periods, difficulty getting , painful intercourse, pelvic pain, vaginal dryness, vaginal odor, Vaginal Itching or other Musc Musculoskeletal: No abnormal walking, joint pain, back pain, deformity, joint swelling, limited range of motion, loss of height, muscle cramps, muscle weakness, decreased muscle mass, body aches, neck pain, numbness, radiating pain into limb, stiffness, tingling or other Skin Skin: No acne, hair loss, change in hair, nail changes, boil, change in skin color, dry skin, redness, excessive hair growth, yellowing of the skin, lesions, itching, rash, skin pain, skin ulcer, sores, skin swelling, wounds or other Breast Breast: No other Neuro Neurology: No frequent falls, weakness, visual disturbances, abnormal hearing, headache(s), abnormal walking, numbness or tingling Psych Psychiatric: No abnormal sleep pattern, Positive for change in appetite Endo Endocrine: Positive for fatigue; no other Aller/Imm Allergy/Immunologic: No lip swelling, tongue swelling, throat swelling, wheezing or itchy eyes Assessment AND Plan Problems 1. Hypocalcemia E83.51 2. Type 2 diabetes mellitus with complication, without long- term current use of insulin E11.8 Plan Control portions Food selections should be healthy Choose more low carb vegetables Avoid snacks and desserts. Drink water Exercise daily Eat more fresh foods, not canned or processed Eat more slowly Coding Level of Care Code Off vis,est,level 4 Diagnoses Hypocalcemia E83.51 Type 2 diabetes mellitus with complication, without long-term current use of insulin E11.8 Diabetes mellitus complication status: with unspecified complications Diabetes mellitus mcfp insulin use: without mcfp use Time Spent (min) 30 09/21/17 0703 <Electronically signed by Kendra WRIGHT> Date Kendra WRIGHT Cosigner Signature: Date (if applicable) CC: ABILIO Collected: 09/20/2017 Status: F Source: [place] 4:07 PM [facility] REPOSITORY TYPE CODE TESTS RESULT OUT OF RANGE REFERENCE UNITS LAB L509.1000 18.4-80.1 pg/mL Normal PTHIN 50.5 Performed By: #### L509.1000 #### [facility] [address]. [place], [place], [address] #### L3100.9600, L3300.0960 #### [facility] (refer to report for specific site) refer to report for address and phone number CALCIUM IONIZED Collected: 09/20/2017 Status: F Source: [place] 4:07 PM [facility] REPOSITORY TYPE CODE TESTS RESULT OUT OF RANGE REFERENCE UNITS LAB L3100.9600 4.5-5.6 mg/dL Normal IONIZED CA 5.3 Result Comment: Performed at: [address] [id number] Ditch Worker: Sathya Barnett PhD, Phone: [phone] Performed By: #### L509.1000 #### [facility] [address] [place] [address]. [place], [place], [address] #### L3100.9600, L3300.0960 #### [facility] (refer to report for specific site) refer to report for address and phone number VITAMIN D 1,25-DIHYDROXY Collected: 09/20/2017 Status: F Source: [place] 4:07 PM [facility] REPOSITORY TYPE CODE TESTS RESULT OUT OF RANGE REFERENCE UNITS LAB L3300.0960 Normal VITD 1,25 [address] Result Comment: TEST RESULT LIMITS Calcitriol (1,25 di-[place] Vit D) 46.2 pg/mL 19.9 - 79.3 TESTING PERFORMED AT [facility]. ORIGINAL REPORT ON FILE IN LAB CONTAINS ADDITIONAL TEST SITE INFORMATION. Performed By: #### L509.1000 #### [facility] [address] [place], [address] #### L3100.9600, L3300.0960 #### [facility] (refer to report for specific site) refer to report for address and phone number ENDOCRINOLOGY VISIT Observed: 06/21/2017 Status: F Source: [place] REPORT 7:36 AM [facility] REPOSITORY [facility] [address] [place] [address] OFFICE VISIT Date of Service: 06/20/17 MR#: [id number] Acct: [id number] Name: GABY SCHUSTER Rep #: [id number] : 1945 Provider: Kendra Granger NP Age/Sex: 72/F [place] [facility] [place]: Signed HPI History of present illness Gaby Schuster is a 72 year old female who presents for follow up of diabetes type 2. Newly diagnosed in December 2016. Reports she was hospitalized due to GI bleed, had aneurism surgery, and long rehabilitation period. Is now feeling back to normal self. 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 Currently taking metformin 750mg daily SMBG am 127-150 average 12n 140 average 5pm 140-150 Meals at lunch and dinner at 2 hours 50 points higher. Checks 3-4 times daily At time of visit: -Pt denies symptoms of hypertensive emergency (CP,SOB,RANDHAWA, or blurred vision) and hypotension(dizziness or lightheadedness) -Pt denies symptoms of hypoglycemia ( sweaty, confusion, anxiety, tremor, hunger, palpitations) and hyperglycemia ( polydipsia, polyuria) -Pt denies potential medication adverse effect. Hypoglycemia Aware of hypoglycemia: yes, Able to self treat low BG: Yes Frequent low Blood sugar: No Has supply of glucagon: No She denies excessive thirst, increased frequency of urination, chest pain or dyspnea. Follows a diabetic diet, Is compliant with medication and is tolerating without side effects. Type: type 2 Weight and fatigue symptoms: Denies snoring Cardiopulmonary symptoms: Denies chest pain at rest, dyspnea on exertion, lightheadedness or myalgias GI symptoms: Denies constipation, diarrhea, nausea/dyspepsia or vomiting Skin and extremity symptoms: Denies tingling/numbness/burning Other symptoms: Denies blurry vision or change in vision Pertinent visit history: Denies recent visit to ER or recent 911 calls Dietary compliance: Diabetes: good Diabetes education in past year: Yes Glucose testing: demonstrates correct use of meter, understands testing schedule Physical activity: regular Exam Const General: comfortable, no acute distress Nutritional Appearance: well nourished Orientation: oriented x3 HENMT Head: normal to inspection, normocephalic Ears: hearing grossly normal bilaterally Mouth: oral mucosae normal, moist mucous membranes Teeth and gingiva: dentition normal Eyes General: appearance normal, both eyes and all related structures Eyelids: eyelids normal Conjunctivae: conjunctivae normal Sclera: sclerae normal Neck Neck: normal visual inspection, no lymphadenopathy Resp Effort AND Inspection: normal respiratory effort, able to speak in complete sentences, symmetric chest movement Auscultation: Bilateral: Clear to Auscultation Cardio Rate: regular rate Rhythm: regular rhythm Heart Sounds: S1 normal, S2 normal GI Inspection: normal to inspection Auscultation: normal bowel sounds Palpation: soft Skin General: no rashes or lesions noted Wounds: no wounds Diabetic Foot Pulses: L dorsalis pedis pulse: normal, R dorsalis pedis pulse: normal Monofilament test: Left foot: normal, Right foot: normal Neuro General: gait normal Cognition: normal cognition Speech: speech normal Extrem General: normal to inspection, no pedal edema Psych Appearance: well kempt Mental Status: mental status grossly normal Mood: congruent mood Affect: normal affect Speech and Movement: speech and movement normal Attitude: cooperative Thought Process: normal Thought Content: normal Judgment: judgment good Weight and fatigue symptoms: Denies snoring Cardiopulmonary symptoms: Denies chest pain at rest, dyspnea on exertion or lightheadedness GI symptoms: Denies constipation, diarrhea, nausea/dyspepsia or vomiting Other symptoms: Denies blurry vision or change in vision Intake Vital Signs06/20/17 Height 5 ft 2 in 06/20/17 Weight: 163 lb 06/20/17 Body Mass Index (BMI) 29.8 06/20/17 Blood Pressure 107/71 06/20/17 Blood Pressure Location Lt popliteal 06/20/17 Blood Pressure Position Sitting Intake Visit Reasons: 1 M FU Commercial Credit Officer Required: No Accompanied by: Friend Is patient in pain?: No Allergies Sbqrsla-Nyq-Shx Reductase Inhibitor Allergy (Severe, Verified 06/20/17 14:19) Unknown Medications Citalopram [Celexa] 20 mg PO DAILY 05/03/17 [History Confirmed 06/20/17] Gabapentin [Neurontin] 100 mg PO BID 05/03/17 [History Confirmed 06/20/17] Hydrochlorothiazide 12.5 mg PO DAILY 05/03/17 [History Confirmed 06/20/17] Lorazepam [Ativan] 0.5 mg PO TID 05/03/17 [History Confirmed 06/20/17] Potassium Chloride [Klor-Con Sprinkle] 10 meq PO DAILY 05/03/17 [History Confirmed 06/20/17] Zolpidem Tartrate [Ambien] 10 mg PO DAILY 05/03/17 [History Confirmed 06/20/17] acetaminophen 500 mg capsule 500 mg PO Q4H PRN 05/23/17 [History Confirmed 06/20/17] lisinopril 10 mg tablet 5 mg PO DAILY tab 05/23/17 [History Confirmed 06/20/17] metformin 500 mg tablet 750 mg PO QDAY tab 05/23/17 [History Confirmed 06/20/17] pantoprazole 40 mg tablet,delayed release 40 mg PO BID tab 05/23/17 [History Confirmed 06/20/17] sucralfate 1 gram tablet 1 g PO Q6H 05/23/17 [History Confirmed 06/20/17] glimepiride 1 mg tablet 1 mg PO QAM #30 tab 06/20/17 [Rx Confirmed 06/20/17] Is last menstrual period known: No Post menopausal: Yes Patient : No Nurse's Note: blood sugars : low : 123 high : 153 PFSH Medical History Aneurysm (Acute) Anxiety and depression (Acute) Arthritis (Acute) Back problem (Acute) Carpal tunnel syndrome (Acute) Cataracts, bilateral (Acute) Diabetes type 2, controlled (Acute) H/O blood clots (Acute) Hyperlipidemia (Acute) Neuropathy (Acute) Stomach ulcer (Acute) h/o blood transfusions (Acute) HTN (hypertension) (Chronic) Surgical History H/O spinal fusion (Acute) History of cataract surgery (Acute) Family History Father Arthritis Hypertension Mother Hypertension Brother Hypertension Hyperlipidemia Sister Hyperlipidemia Hypertension Social History Smoking Status: Current every day smoker alcohol intake: never substance use type: does not use ROS Const Constitutional: No anorexia, body ache, chills, fatigue, fever(s), frequent falls, decreased energy, malaise, night sweats, weakness, weight change, sleep problems, abnormal sleep pattern, change in appetite, other, headache(s), snoring or excessive sweating Eyes Eyes: No blurry vision, change in vision, double vision, discharge, dry eyes, bulging eyes, floaters, visual disturbances, eye pain, light sensitivity, spots in vision, tunnel vision or other ENT ENT: No abnormal hearing, ear pain, ear discharge, ear pressure, hearing loss, tinnitus, dizziness/vertigo, balance problems, nosebleed/epistaxis, nasal congestion, nasal obstruction, nose pain, sinus pressure, sinus pain, nasal discharge, post nasal drip, headache(s), facial pain, dental pain, dry mouth, bad breath, hoarseness, lip swelling, mouth lesions, mouth pain, sore throat, tongue swelling, throat swelling, other or difficulty swallowing Resp Respiratory: Positive for cough; no change in phlegm color, chest congestion, excessive phlegm production, hemoptysis, pain on inspiration, shortness of breath, pain with cough, snoring, stridor, wheezing or other Cardio Cardiology: No chest pain at rest, chest pain with exertion, leg pain with exertion, excessive sweating, shortness of breath, dyspnea on exertion, generalized swelling, irregular heart rhythm, lightheadedness, orthopnea, radiating jaw, neck or arm pain, fast heart rate, slow heart rate, palpitations or other Gastro GI: No abdominal pain, belching, bloating, change in bowel habits, change in stool character, coffee ground emesis, constipation, cramping, diarrhea, heartburn, difficulty swallowing, feeling full early, excessive flatus, incontinent of stools, Vomiting blood/hematemesis, blood in stool, loose stools, Black,tarry stools, nausea/dyspepsia, pain with swallowing, vomiting or other Genitourinary-Female: No difficulty urinating, burning urination, painful urination, urinary incontinence, urinary frequency, urinary urgency, urinary hesitancy, urinary retention, blood in urine, Frequent nighttime urination/ nocturia, post void dribbling, suprapubic fullness, side pain, sexual problems, genital lesions, genital itching, hot flashes, abnormal periods, abnormal vaginal bleeding, absent period, painful periods, light periods, heavy periods, difficulty getting , painful intercourse, pelvic pain, vaginal dryness, vaginal odor, Vaginal Itching or other Skin Skin: No acne, hair loss, change in hair, nail changes, boil, change in skin color, dry skin, redness, excessive hair growth, yellowing of the skin, lesions, itching, rash, skin pain, skin ulcer, sores, skin swelling, wounds or other Breast Breast: No other Neuro Neurology: No frequent falls, weakness, visual disturbances, abnormal hearing or headache(s) Psych Psychiatric: No abnormal sleep pattern, No change in appetite Endo Endocrine: No fatigue, other or excessive sweating Aller/Imm Allergy/Immunologic: No lip swelling, tongue swelling, throat swelling, wheezing or itchy eyes Assessment AND Plan Problems 1. Type 2 diabetes mellitus with complication, without long- term current use of insulin E11.8 2. Essential hypertension I10 3. Pure hypercholesterolemia E78.00 Plan No chol levels available. Need to obtain Patient Instructions Begin amarly 1/2 tablet at lunch. Monitor BG closely and also do 2 hour post meal Labs for low calcium Armchair exercises. Orders Orders: Medications New: glimepiride administer with lunch . Begin with one half tablet, incre1 mg PO QAM E11.9 ase to one tablet if needed. Plan Detail Additional Comments 1. Please schedule follow up in 3 months. 2. Lab work one week before appointment. 3. Discussed importance of regular exercise and recommend starting or continuing a regular exercise program for good health. 4. The patient was encouraged to lose weight for good health 5. The importance of monitoring blood sugar regularly was reviewed. 6. The importance of monitoring the HBA1c level regularly was reviewed. 7. The importance of prper foot care and regularly checking feet to prevent sores and loss of limbs was reviewed. 8. The importance of keeping BP at or below 130/80 to prevent stroke, heart attacks, kidney failure, blindness was reviewed. Spent approximately 30 minutes with patient with over 50% of time spent in discussion and counseling regarding medication adjustment, symptoms and treatment of hypoglycemia, diet adherence, and checking BG before driving. 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 [address] [place] [address] OFFICE VISIT Date of Service: 05/23/17 MR#: [id number] Acct: [id number] Name: GABY SCHUSTER Rep #: [id number] : 1945 Provider: Kendra Granger NP Age/Sex: 72/F [place] [facility] [place] Status: Signed HPI History of present illness Gaby Schuster is a 72 year old female who presents for follow up of diabetes type 2. Newly diagnosed in December 2016. Reports she was hospitalized due to GI bleed, had aneurism surgery, and long rehabilitation period. Is now feeling back to normal self. 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 Checks her BG one time daily in the am. Currently taking metformin 750mg daily SMBG 127-150 average At time of visit: -Pt denies symptoms of hypertensive emergency (CP,SOB,RANDHAWA, or blurred vision) and hypotension(dizziness or lightheadedness) -Pt denies symptoms of hypoglycemia ( sweaty, confusion, anxiety, tremor, hunger, palpitations) and hyperglycemia ( polydipsia, polyuria) -Pt denies potential medication adverse effect. Hypoglycemia Aware of hypoglycemia: yes, Able to self treat low BG: Yes Frequent low Blood sugar: No Has supply of glucagon: No She denies excessive thirst, increased frequency of urination, chest pain or dyspnea. Follows a diabetic diet, Is compliant with medication and is tolerating without side effects. Type: type 2 Weight and fatigue symptoms: Denies snoring Cardiopulmonary symptoms: Denies chest pain at rest, dyspnea on exertion, lightheadedness or myalgias GI symptoms: Denies constipation, diarrhea, nausea/dyspepsia or vomiting Skin and extremity symptoms: Denies tingling/numbness/burning Other symptoms: Denies blurry vision or change in vision Pertinent visit history: Denies recent visit to ER or recent 911 calls Dietary compliance: Diabetes: good Diabetes education in past year: Yes Glucose testing: demonstrates correct use of meter, understands testing schedule Physical activity: regular Exam Const General: comfortable, no acute distress Nutritional Appearance: well nourished Orientation: oriented x3 HENMT Head: normal to inspection, normocephalic Ears: hearing grossly normal bilaterally Mouth: oral mucosae normal, moist mucous membranes Teeth and gingiva: dentition normal Eyes General: appearance normal, both eyes and all related structures Eyelids: eyelids normal Conjunctivae: conjunctivae normal Sclera: sclerae normal Neck Neck: normal visual inspection, no lymphadenopathy Resp Effort AND Inspection: normal respiratory effort, able to speak in complete sentences, symmetric chest movement Auscultation: Bilateral: Clear to Auscultation Cardio Rate: regular rate Rhythm: regular rhythm Heart Sounds: S1 normal, S2 normal GI Inspection: normal to inspection Auscultation: normal bowel sounds Palpation: soft Skin General: no rashes or lesions noted Wounds: no wounds Diabetic Foot Pulses: L dorsalis pedis pulse: normal, R dorsalis pedis pulse: normal Monofilament test: Left foot: normal, Right foot: normal Neuro General: gait normal Cognition: normal cognition Speech: speech normal Extrem General: normal to inspection, no pedal edema Psych Appearance: well kempt Mental Status: mental status grossly normal Mood: congruent mood Affect: normal affect Speech and Movement: speech and movement normal Attitude: cooperative Thought Process: normal Thought Content: normal Judgment: judgment good Intake Vital Signs03/26/18 Height 5 ft 2 in 05/23/17 Weight: 165 lb 2 oz 05/23/17 Body Mass Index (BMI) 30.2 05/23/17 Blood Pressure 125/83 05/23/17 Blood Pressure Location Lt popliteal 05/23/17 Blood Pressure Position Sitting Intake Visit Reasons: Hosp f/u new dm Commercial Credit Officer Required: No Accompanied by: Friend Is patient in pain?: No Allergies Bfsxzqj-Zvj-Lcn Reductase Inhibitor Allergy (Severe, Verified 05/23/17 12:51) Unknown Medications Citalopram [Celexa] 20 mg PO DAILY 05/03/17 [History Confirmed 05/23/17] Gabapentin [Neurontin] 100 mg PO BID 05/03/17 [History Confirmed 05/23/17] Hydrochlorothiazide 12.5 mg PO DAILY 05/03/17 [History Confirmed 05/23/17] Lorazepam [Ativan] 0.5 mg PO TID 05/03/17 [History Confirmed 05/23/17] Potassium Chloride [Klor-Con Sprinkle] 10 meq PO DAILY 05/03/17 [History Confirmed 05/23/17] Zolpidem Tartrate [Ambien] 10 mg PO DAILY 05/03/17 [History Confirmed 05/23/17] acetaminophen 500 mg capsule 500 mg PO Q4H PRN 05/23/17 [History Confirmed 05/23/17] lisinopril 10 mg tablet 5 mg PO DAILY tab 05/23/17 [History Confirmed 05/23/17] metformin 500 mg tablet 750 mg PO QDAY tab 05/23/17 [History Confirmed 05/23/17] pantoprazole 40 mg tablet,delayed release 40 mg PO BID tab 05/23/17 [History Confirmed 05/23/17] sucralfate 1 gram tablet 1 g PO Q6H 05/23/17 [History Confirmed 05/23/17] Is last menstrual period known: No Post menopausal: Yes Patient : No Nurse's Note: blood sugars : low : 112 high : 235 PFSH Medical History Aneurysm (Acute) Anxiety and depression (Acute) Arthritis (Acute) Back problem (Acute) Carpal tunnel syndrome (Acute) Cataracts, bilateral (Acute) Diabetes type 2, controlled (Acute) H/O blood clots (Acute) Hyperlipidemia (Acute) Neuropathy (Acute) Stomach ulcer (Acute) h/o blood transfusions (Acute) HTN (hypertension) (Chronic) Surgical History H/O spinal fusion (Acute) History of cataract surgery (Acute) Family History Father Arthritis Hypertension Mother Hypertension Brother Hypertension Hyperlipidemia Sister Hyperlipidemia Hypertension Social History Smoking Status: Current every day smoker alcohol intake: never substance use type: does not use ROS Const Constitutional: Positive for fatigue; no anorexia, body ache, chills, fever(s), decreased energy, malaise, night sweats, weight change, sleep problems, other, frequent falls, weakness, headache(s), abnormal sleep pattern, change in appetite, excessive sweating or snoring Eyes Eyes: Positive for other (eye exam 2+ years ago); no double vision, discharge, dry eyes, bulging eyes, floaters, eye pain, light sensitivity, spots in vision, tunnel vision, visual disturbances, blurry vision or change in vision ENT ENT: No ear pain, ear discharge, ear pressure, hearing loss, tinnitus, dizziness/vertigo, balance problems, nosebleed/epistaxis, nasal congestion, nasal obstruction, nose pain, sinus pressure, sinus pain, nasal discharge, post nasal drip, facial pain, dental pain, dry mouth, bad breath, hoarseness, mouth lesions, mouth pain, sore throat, difficulty swallowing, neck pain, abnormal hearing, headache(s), other, lip swelling, tongue swelling or throat swelling Resp Respiratory: No cough, change in phlegm color, chest congestion, excessive phlegm production, hemoptysis, pain on inspiration, shortness of breath, pain with cough, stridor, other, wheezing or snoring Cardio Cardiology: No chest pain with exertion, leg pain with exertion, shortness of breath, generalized swelling, irregular heart rhythm, orthopnea, radiating jaw, neck or arm pain, fast heart rate, slow heart rate, palpitations, other, excessive sweating, chest pain at rest, dyspnea on exertion or lightheadedness Gastro GI: No abdominal pain, belching, bloating, change in bowel habits, change in stool character, coffee ground emesis, cramping, heartburn, difficulty swallowing, feeling full early, excessive flatus, incontinent of stools, Vomiting blood/hematemesis, blood in stool, loose stools, Black,tarry stools, pain with swallowing, other, constipation, diarrhea, nausea/dyspepsia or vomiting Genitourinary-Female: No difficulty urinating, burning urination, painful urination, urinary incontinence, urinary frequency, urinary urgency, urinary hesitancy, urinary retention, blood in urine, Frequent nighttime urination/ nocturia, post void dribbling, suprapubic fullness, side pain, sexual problems, genital lesions, genital itching, hot flashes, abnormal periods, abnormal vaginal bleeding, absent period, painful periods, light periods, heavy periods, difficulty getting , painful intercourse, pelvic pain, vaginal dryness, vaginal odor, Vaginal Itching or other Musc Musculoskeletal: No joint pain, back pain, deformity, joint swelling, limited range of motion, loss of height, muscle cramps, muscle weakness, decreased muscle mass, neck pain, radiating pain into limb, stiffness, other, abnormal walking, numbness, tingling or body aches Neuro Neurology: No frequent falls, weakness, visual disturbances, abnormal hearing, headache(s), abnormal walking, numbness or tingling Psych Psychiatric: No abnormal sleep pattern, No change in appetite Endo Endocrine: Positive for fatigue; no other or excessive sweating Aller/Imm Allergy/Immunologic: No lip swelling, tongue swelling, throat swelling or wheezing Assessment AND Plan Problems 1. Type 2 diabetes mellitus with complication, without long- term current use of insulin E11.8 2. Essential hypertension I10 3. Pure hypercholesterolemia E78.00 Plan BG readings as presented seem to be in fairly good range. She does only check in the am. Diet is being followed as set up by the dieticians. Discussed and explained pathophysiology of diabetes. Instructed on carb counting and consistency. Will ask patient to check her BG in pairs for further review in office. A1c ordered. Hypertension- BP 125/83 Is on sascha inhibitor. Is not on a statin. Has hx of hyperlipidemia Eye exam up to date. Patient Instructions Check BG in pairs, before you eat and then again 2 hours after meals. Bring this data to next appoint in 2-3 weeks Lab as ordered. Orders Orders: Plan Detail Additional Comments 1. Please schedule follow up in 3 weeks 2. Lab work one week before appointment. 3. Discussed importance of regular exercise and recommend starting or continuing a regular exercise program for good health. 4. The patient was encouraged to lose weight for good health 5. The importance of monitoring blood sugar regularly was reviewed. 6. The importance of monitoring the HBA1c level regularly was reviewed. 7. The importance of porper foot care and regularly checking feet to prevent sores and loss of limbs was reviewed. 8. The importance of keeping BP at or below 130/80 to prevent stroke, heart attacks, kidney failure, blindness was reviewed. Spent approximately 60 minutes with patient with over 50% of time spent in discussion and counseling regarding medication adjustment, symptoms and treatment of hypoglycemia, diet adherence, and checking BG before driving. Coding Level of Care Code Off vis,new,level 4 Diagnoses Type 2 diabetes mellitus with complication, without long-term current use of insulin E11.8 Diabetes mellitus complication status: with unspecified complications Diabetes mellitus [employer] insulin use: without [employer] use Essential hypertension I10 Hypertension type: essential hypertension Pure hypercholesterolemia E78.00 Hyperlipidemia type: pure hypercholesterolemia Time Spent (min) 60 05/24/17 1130 <Electronically signed by Kendra WRIGHT> Date Kendra WRIGHT Cosigner Signature: Date (if applicable) CC: HEMOGLOBIN A1C Collected: 05/23/2017 Status: F Source: [place] 2:39 PM [facility] REPOSITORY TYPE CODE TESTS RESULT OUT OF RANGE REFERENCE UNITS LAB L501.9985 4.2-6.3 % Normal HGB A1C 5.7 Performed By: #### L501.9985 #### [facility] [address] [place], [place] [address], [address] PROGRESS Observed: 05/15/2017 Status: COMPLETED Source: [place] 10:13 AM [facility] REPOSITORY O ID: [id number] Author: Mar Alcocer Service: (none) Author Type: Physician Type: Progress Notes Filed: 05/15/2017 10:15 AM Note Text: OPERATIVE NOTATION FOR [facility] SURGICAL PROCEDURE. May 06, 2017 Gaby Lisa Schuster 1945 [id number] female PROCEDURE: EGD WITH CONTROL OF BLEEDING - [id number] SURGEON: Yolanda Alcocer M.D. FACS STATION WORKER: None DEPT: WQ PROVIDER: [id number] Alcocer MD POS: [id number] DIAGNOSIS: (K92.2) GI bleed requiring more than 4 units of blood in 24 hours, ICU, or surgery (primary encounter diagnosis) (K26.0) Acute duodenal ulcer with hemorrhage ASA CLASS: 4E - Life threatening emergency FINDINGS: bleeding duodenal COMPLICATIONS: None PMHx - No past medical history on file. COMORBIDITIES - None Post Op Occurrences - None Wound Classification - Clean Contaminated Operative note dictated in the [facility] dictation system. Mar Alcocer MD 12 LEAD ELECTROCARDIOGRAM Observed: 05/13/2017 Status: F Source: [place] 2:02 PM [facility] REPOSITORY [facility] Cardiovascular Services [address] [place] [address] 12 Lead EKG 05/06/17 0420 MR#: [id number] Acct: [id number] Name: GABY SCHUSTER Rep #: [id number] : 1945 72 From: Iván Cortés MD Attending Dr: Cornell Wilson DO Status: DIS IN Ordering Dr: Alex Harry MD Date: 05/06/17 Location: ICU Sex: F C Admitted: 05/05/17 Test Reason : Blood Pressure : / mmHG Vent. Rate : 106 BPM Atrial Rate : 106 BPM P-R Int : 120 ms QRS Dur : 068 ms QT Int : 344 ms P-R-T Axes : 068 066 064 degrees QTc Int : 456 ms Sinus tachycardia Nonspecific ST abnormality Abnormal ECG When compared with ECG of 05-MAY-2017 08:59, No significant change was found Confirmed by IVÁN CORTÉS MD ([id number]), editorial intern MIGUE JOY ([id number]) on 05/13/2017 2:02:19 PM Referred By: Confirmed By:IVÁN CORTÉS MD 05/13/17 1402 Date Iván Cortés MD CC: Alex Harry MD; Omar Bryant MD Signed GLUCOSE,BEDSIDE Collected: 05/11/2017 Status: F Source: [employer] 6:59 AM SYSTEM REPOSITORY TYPE CODE TESTS RESULT OUT OF RANGE REFERENCE UNITS LAB BGLU 70-100 mg/dL High 169 Glucose,Beds talat Result Comment: Test performed by glucose meter. Results may be 10%-15% lower than serum/plasma values. (CLIA ID [id number]) Performed By: #### BGLU #### The performing lab is in the report. CALCIUM,IONIZED Collected: 05/11/2017 Status: F Source: [employer] 5:52 AM SYSTEM REPOSITORY TYPE CODE TESTS RESULT OUT OF REFERENCE UNITS RANGE LAB ICAL 4.30-5.20 mg/dL Low Ionized 3.70 Ca,Measured LAB PHICA 7.31-7.46 pH, Ionized 7.44 Calcium Performed By: #### ICA, HEMOG, MG3, PHOS3, BMP3 #### The performing lab is in the report. HEMOGRAM Collected: 05/11/2017 Status: F Source: [employer] 5:52 AM SYSTEM REPOSITORY TYPE CODE TESTS RESULT OUT OF REFERENCE UNITS RANGE LAB IWBC 3.6-10.7 10*3/uL WBC 7.4 LAB RBC 3.80-5.20 10*6/uL Low RBC 3.52 LAB HGB 11.7-16.0 g/dL Low Hemoglobin 10.6 LAB HCT 35.0-47.0 % Low Hematocrit 30.7 LAB MCV 79.0-98.0 fL MCV 87.2 LAB MCH 26.0-34.0 pg MCH 30.1 LAB MCHC 32.0-36.0 % MCHC 34.5 LAB RDW 11.5-14.5 % RDW High 14.9 LAB PLT 140-440 10*3/uL Platelet 204 LAB MPV 7.4-10.4 fL MPV 8.6 Performed By: #### ICA, HEMOG, MG3, PHOS3, BMP3 #### The performing lab is in the report. MAGNESIUM Collected: 05/11/2017 Status: F Source: [employer] 5:52 AM SYSTEM REPOSITORY TYPE CODE TESTS RESULT OUT OF REFERENCE UNITS RANGE LAB MG3 1.6-2.3 mg/dL Magnesium 1.6 Performed By: #### ICA, HEMOG, MG3, PHOS3, BMP3 #### The performing lab is in the report. PHOSPHORUS Collected: 05/11/2017 Status: F Source: [employer] 5:52 AM SYSTEM REPOSITORY TYPE CODE TESTS RESULT OUT OF REFERENCE UNITS RANGE LAB PHOS3 2.5-4.5 mg/dL Phosphorus 3.5 Performed By: #### ICA, HEMOG, MG3, PHOS3, BMP3 #### The performing lab is in the report. BASIC METABOLIC PANEL Collected: 05/11/2017 Status: F Source: [employer] 5:52 AM SYSTEM REPOSITORY TYPE CODE TESTS RESULT OUT OF REFERENCE UNITS RANGE LAB NA3 137-145 mmol/L Sodium 137 LAB K3 3.5-5.1 mmol/L Low Potassium 2.8 LAB CL3 98-107 mmol/L Chloride 99 LAB CO23 22-30 mmol/L Carbon High Dioxide 34 LAB ANIN3 Anion Gap 4 LAB GLUC3 70-100 mg/dL Glucose High 124 LAB BUN3 7-20 mg/dL Urea Nitrogen 10 LAB CRET3 0.52-1.25 mg/dL Creatinine 0.55 LAB GF3BR >60 mL/min eGFR >60.0 LAB GF3WR >60 mL/min eGFR OTHER >60.0 Result Comment: Source- MDRD equation with creatinine calibration to IDMS(NKDEP) eGFR not recommended for drug dose adjustment LAB CA3 8.4-10.2 mg/dL Low Calcium 7.8 Performed By: #### ICA, HEMOG, MG3, PHOS3, BMP3 #### The performing lab is in the report. BASIC METABOLIC PANEL Collected: 05/10/2017 Status: F Source: [employer] 9:10 AM SYSTEM REPOSITORY TYPE CODE TESTS RESULT OUT OF REFERENCE UNITS RANGE LAB NA3 137-145 mmol/L Low Sodium 136 LAB K3 3.5-5.1 mmol/L Low Potassium 2.7 LAB CL3 98-107 mmol/L Low Chloride 97 LAB CO23 22-30 mmol/L Carbon High Dioxide 36 LAB ANIN3 Anion Gap 3 LAB GLUC3 70-100 mg/dL Glucose High 112 LAB BUN3 7-20 mg/dL Urea Nitrogen 11 LAB CRET3 0.52-1.25 mg/dL Creatinine 0.57 LAB GF3BR >60 mL/min eGFR >60.0 LAB GF3WR >60 mL/min eGFR OTHER >60.0 Result Comment: Source- MDRD equation with creatinine calibration to IDMS(NKDEP) eGFR not recommended for drug dose adjustment LAB CA3 8.4-10.2 mg/dL Low Calcium 7.9 Performed By: #### BMP3 #### The performing lab is in the report. HEMOGRAM Collected: 05/10/2017 Status: F Source: [employer] 6:48 AM SYSTEM REPOSITORY TYPE CODE TESTS RESULT OUT OF REFERENCE UNITS RANGE LAB IWBC 3.6-10.7 10*3/uL WBC 7.8 LAB RBC 3.80-5.20 10*6/uL Low RBC 3.65 LAB HGB 11.7-16.0 g/dL Low Hemoglobin 10.8 LAB HCT 35.0-47.0 % Low Hematocrit 31.9 LAB MCV 79.0-98.0 fL MCV 87.4 LAB MCH 26.0-34.0 pg MCH 29.6 LAB MCHC 32.0-36.0 % MCHC 33.9 LAB RDW 11.5-14.5 % RDW High 15.1 LAB PLT 140-440 10*3/uL Platelet 182 LAB MPV 7.4-10.4 fL MPV 8.6 Performed By: #### HEMOG, ICA, MG3, PHOS3 #### The performing lab is in the report. CALCIUM,IONIZED Collected: 05/10/2017 Status: F Source: [employer] 6:48 AM SYSTEM REPOSITORY TYPE CODE TESTS RESULT OUT OF REFERENCE UNITS RANGE LAB ICAL 4.30-5.20 mg/dL Low Ionized 4.10 Ca,Measured LAB PHICA 7.31-7.46 pH, Ionized 7.43 Calcium Performed By: #### HEMOG, ICA, MG3, PHOS3 #### The performing lab is in the report. MAGNESIUM Collected: 05/10/2017 Status: F Source: [employer] 6:48 AM SYSTEM REPOSITORY TYPE CODE TESTS RESULT OUT OF REFERENCE UNITS RANGE LAB MG3 1.6-2.3 mg/dL Magnesium 1.6 Performed By: #### HEMOG, ICA, MG3, PHOS3 #### The performing lab is in the report. PHOSPHORUS Collected: 05/10/2017 Status: F Source: [employer] 6:48 AM SYSTEM REPOSITORY TYPE CODE TESTS RESULT OUT OF REFERENCE UNITS RANGE LAB PHOS3 2.5-4.5 mg/dL Phosphorus 3.3 Performed By: #### HEMOG, ICA, MG3, PHOS3 #### The performing lab is in the report. 12 LEAD ELECTROCARDIOGRAM Observed: 05/09/2017 Status: F Source: [place] 1:47 PM [facility] REPOSITORY [facility] Cardiovascular Services [address] [place] [address] 12 Lead EKG 05/05/17 0859 MR#: [id number] Acct: [id number] Name: GABY SCHUSTER Rep #: [id number] : 1945 72 From: Ananth Flores MD Attending Dr: Cornell Wilson DO Status: DIS IN Ordering Dr: Juan Mcdaniel MD Date: 05/05/17 Location: ICU Sex: F C Admitted: 05/05/17 Test Reason : SYNCOPE Blood Pressure : / mmHG Vent. Rate : 092 BPM Atrial Rate : 092 BPM P-R Int : 136 ms QRS Dur : 072 ms QT Int : 396 ms P-R-T Axes : 068 066 051 degrees QTc Int : 489 ms Normal sinus rhythm Normal ECG Confirmed by ANANTH FLORES ([id number]), editorial intern MIGUE JOY ([id number]) on 05/09/2017 1:47:00 PM Referred By: Omar Bryant Confirmed By:ANANTH FLORES 05/09/17 1347 Date Ananth Flores MD CC: Juan Mcdaniel MD; Omar Bryant MD Signed CR CHEST PORTABLE Observed: 05/09/2017 Status: F Source: [employer] 7:38 AM SYSTEM REPOSITORY Patient Name: GABY SCHUSTER Diagnostic Radiology Exam Date/Time 05/09/2017 06:20:00 EDT Exam CR Chest Portable Ordering Physician REMY MEZA D.O. Accession Number [id number] CPT4 Codes 04439 () Reason For Exam Wheeze Report Indication: Wheezing. A frontal view of the chest timed 0540 is compared to the study dated 05/07/2017. Again identified is a right-sided central line. No sizable pneumothorax is seen. The heart is not enlarged. Atherosclerotic calcifications of the thoracic aorta are visualized. The mediastinum and pulmonary vascularity are within normal limits. There is mild bilateral interstitial lung prominence which is unchanged and probably chronic in nature. There are no areas of consolidation. No pleural effusions are visualized. There has been no significant change. Report Dictated on Final Dictated: 05/09/2017 7:38 am Dictating Physician: DO HEDRICK ANTHONY Signed Date and Time: 05/09/2017 7:40 am Signed by: DO HEDRICK ANTHONY Transcribed Date and Time: 05/09/2017 7:38 HEMOGRAM Collected: 05/09/2017 Status: F Source: [employer] 3:15 AM SYSTEM REPOSITORY TYPE CODE TESTS RESULT OUT OF REFERENCE UNITS RANGE LAB IWBC 3.6-10.7 10*3/uL WBC 9.0 LAB RBC 3.80-5.20 10*6/uL Low RBC 3.21 LAB HGB 11.7-16.0 g/dL Low Hemoglobin 9.7 LAB HCT 35.0-47.0 % Low Hematocrit 27.3 LAB MCV 79.0-98.0 fL MCV 85.2 LAB MCH 26.0-34.0 pg MCH 30.2 LAB MCHC 32.0-36.0 % MCHC 35.4 LAB RDW 11.5-14.5 % RDW High 15.0 LAB PLT 140-440 10*3/uL Low Platelet 132 LAB MPV 7.4-10.4 fL MPV 8.4 Performed By: #### HEMOG, ICA, MG3, PHOS3, BMP3 #### The performing lab is in the report. CALCIUM,IONIZED Collected: 05/09/2017 Status: F Source: [employer] 3:15 AM SYSTEM REPOSITORY TYPE CODE TESTS RESULT OUT OF REFERENCE UNITS RANGE LAB ICAL 4.30-5.20 mg/dL Low Ionized 3.60 Ca,Measured LAB PHICA 7.31-7.46 pH, Ionized 7.42 Calcium Performed By: #### HEMOG, ICA, MG3, PHOS3, BMP3 #### The performing lab is in the report. MAGNESIUM Collected: 05/09/2017 Status: F Source: [employer] 3:15 AM SYSTEM REPOSITORY TYPE CODE TESTS RESULT OUT OF REFERENCE UNITS RANGE LAB MG3 1.6-2.3 mg/dL Low Magnesium 1.4 Performed By: #### HEMOG, ICA, MG3, PHOS3, BMP3 #### The performing lab is in the report. PHOSPHORUS Collected: 05/09/2017 Status: F Source: [employer] 3:15 AM SYSTEM REPOSITORY TYPE CODE TESTS RESULT OUT OF REFERENCE UNITS RANGE LAB PHOS3 2.5-4.5 mg/dL Phosphorus 3.0 Performed By: #### HEMOG, ICA, MG3, PHOS3, BMP3 #### The performing lab is in the report. BASIC METABOLIC PANEL Collected: 05/09/2017 Status: F Source: [employer] 3:15 AM SYSTEM REPOSITORY TYPE CODE TESTS RESULT OUT OF REFERENCE UNITS RANGE LAB NA3 137-145 mmol/L Sodium 139 LAB K3 3.5-5.1 mmol/L Low Potassium 3.4 LAB CL3 98-107 mmol/L Chloride 100 LAB CO23 22-30 mmol/L Carbon High Dioxide 36 LAB ANIN3 Anion Gap 3 LAB GLUC3 70-100 mg/dL Glucose High 102 LAB BUN3 7-20 mg/dL Urea Nitrogen 15 LAB CRET3 0.52-1.25 mg/dL Creatinine 0.62 LAB GF3BR >60 mL/min eGFR >60.0 LAB GF3WR >60 mL/min eGFR OTHER >60.0 Result Comment: Source- MDRD equation with creatinine calibration to IDMS(NKDEP) eGFR not recommended for drug dose adjustment LAB CA3 8.4-10.2 mg/dL Low Calcium 7.4 Performed By: #### HEMOG, ICA, MG3, PHOS3, BMP3 #### The performing lab is in the report. HEMOGLOBIN Collected: 05/08/2017 Status: F Source: [employer] 10:01 PM SYSTEM REPOSITORY TYPE CODE TESTS RESULT OUT OF REFERENCE UNITS RANGE LAB HGB 11.7-16.0 g/dL Low Hemoglobin 9.9 LAB HCT 35.0-47.0 % Low Hematocrit 28.2 Performed By: #### HGHCT, BMP3 #### The performing lab is in the report. BASIC METABOLIC PANEL Collected: 05/08/2017 Status: F Source: [employer] 10:01 PM SYSTEM REPOSITORY TYPE CODE TESTS RESULT OUT OF REFERENCE UNITS RANGE LAB NA3 137-145 mmol/L Sodium 137 LAB K3 3.5-5.1 mmol/L Low Potassium 2.8 LAB CL3 98-107 mmol/L Chloride 98 LAB CO23 22-30 mmol/L Carbon High Dioxide 36 LAB ANIN3 Anion Gap 3 LAB GLUC3 70-100 mg/dL Glucose High 103 LAB BUN3 7-20 mg/dL Urea Nitrogen 14 LAB CRET3 0.52-1.25 mg/dL Creatinine 0.65 LAB GF3BR >60 mL/min eGFR >60.0 LAB GF3WR >60 mL/min eGFR OTHER >60.0 Result Comment: Source- MDRD equation with creatinine calibration to IDMS(NKDEP) eGFR not recommended for drug dose adjustment LAB CA3 8.4-10.2 mg/dL Low Calcium 7.4 Performed By: #### HGHCT, BMP3 #### The performing lab is in the report. CTA HEAD W/ + W/O Observed: 05/08/2017 Status: F Source: [employer] CONTRAST 2:35 PM SYSTEM REPOSITORY Patient Name: GABY SCHUSTER CT Exam Date/Time 05/08/2017 11:29:50 EDT Exam CTA Head w/ + w/o Contrast Ordering Physician Michael GRIMM JENNIFER Accession Number [id number] CPT4 Codes 99774 (), Q9967 () Reason For Exam ANEURYSM, HEAD NECK Report Reason for examination: Family history of aneurysms. 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 CT angiograms of the intracranial vessels were performed without and with contrast. Technical adjustments were employed to minimize radiation dose to the patient, including automated exposure control, Sure kV adjustment, and adaptive iterative dose reduction techniques. The high-resolution CT angiographic studies of the intracranial vessels were post processed on a separate 3-D workstation by myself, with multiple shaded surface display and vessel probe CT angiographic analyses. CT angiogram of the intracranial vessels demonstrates patent flow in the right and left carotid siphons, the distal right and left vertebral arteries, basilar artery, and good filling in the right and left anterior, middle, and posterior cerebral distribution vessels . The left vertebral artery is dominant. There is no significant atherosclerotic plaque in the carotid siphons, with no stenosis. There are no vessel cutoffs or stenoses identified. There is a dominant left A1 segment which supplies both the right and left anterior cerebral circulations. There is an atretic right A1 segment. This is all from normal variation and compensatory [place] of Jc circulation. There is no aneurysm or vascular malformation. The cerebral venous structures and major dural sinuses appear normal. IMPRESSION: Negative CT angiograms of the intracranial vessels. No evidence of stenosis, occlusion, or dissection. No evidence of cerebral aneurysm or malformation. Report Dictated on Final Dictated: 05/08/2017 2:35 pm Dictating Physician: MD NIEVES DANIEL Signed Date and Time: 05/08/2017 2:53 pm Signed by: MD NIEVES DANIEL Transcribed Date and Time: 05/08/2017 2:35 CALCIUM,IONIZED Collected: 05/08/2017 Status: F Source: [employer] 9:24 AM SYSTEM REPOSITORY TYPE CODE TESTS RESULT OUT OF REFERENCE UNITS RANGE LAB ICAL 4.30-5.20 mg/dL Low Ionized 3.80 Ca,Measured LAB PHICA 7.31-7.46 pH, Ionized 7.41 Calcium Performed By: #### ICA, HGHCT, BMP3, PT, APTT #### The performing lab is in the report. HEMOGLOBIN Collected: 05/08/2017 Status: F Source: [employer] 9:24 AM SYSTEM REPOSITORY TYPE CODE TESTS RESULT OUT OF REFERENCE UNITS RANGE LAB HGB 11.7-16.0 g/dL Low Hemoglobin 10.1 LAB HCT 35.0-47.0 % Low Hematocrit 28.4 Performed By: #### ICA, HGHCT, BMP3, PT, APTT #### The performing lab is in the report. BASIC METABOLIC PANEL Collected: 05/08/2017 Status: F Source: [employer] 9:24 AM SYSTEM REPOSITORY TYPE CODE TESTS RESULT OUT OF REFERENCE UNITS RANGE LAB NA3 137-145 mmol/L Sodium 138 LAB K3 3.5-5.1 mmol/L Low Alert Potassium 2.6 Result Comment: Repeated LAB CL3 98-107 mmol/L Chloride 101 LAB CO23 22-30 mmol/L Carbon High Dioxide 32 LAB ANIN3 Anion Gap 5 LAB GLUC3 70-100 mg/dL Glucose High 104 LAB BUN3 7-20 mg/dL Urea Nitrogen 18 LAB CRET3 0.52-1.25 mg/dL Creatinine 0.66 LAB GF3BR >60 mL/min eGFR >60.0 LAB GF3WR >60 mL/min eGFR OTHER >60.0 Result Comment: Source- MDRD equation with creatinine calibration to IDMS(NKDEP) eGFR not recommended for drug dose adjustment LAB CA3 8.4-10.2 mg/dL Low Calcium 7.5 Performed By: #### ICA, HGHCT, BMP3, PT, APTT #### The performing lab is in the report. PROTHROMBIN TIME Collected: 05/08/2017 Status: F Source: [employer] 9:24 AM SYSTEM REPOSITORY TYPE CODE TESTS RESULT OUT OF REFERENCE UNITS RANGE LAB PROTM 9.0-12.0 s Prothrombin Time 10.9 Result Comment: . LAB INR 0.9-1.1 INR 1.0 Result Comment: Recommended Anticoagulant Therapy: SEE BELOW ----- INR of 2.0 - 3.0 : - Prophylaxis of Venous Thrombosis (high-risk surgery) - Treatment of Venous Thrombosis - Treatment of Pulmonary Embolism (Includes tissue heart valves, Acute Myocardial Infarction to prevent systemic embolism, Valvular Heart Disease, and Atrial Fibrillation) ----- INR of 2.5 - 3.5 : - Mechanical Prosthetic Valves (high risk) - If oral anticoagulant therapy is used to prevent Myocardial Infarction Performed By: #### ICA, HGHCT, BMP3, PT, APTT #### The performing lab is in the report. APTT Collected: 05/08/2017 Status: F Source: [employer] 9:24 AM SYSTEM REPOSITORY TYPE CODE TESTS RESULT OUT OF RANGE REFERENCE UNITS LAB PTTA 20.0-30.5 s APTT 23.7 Result Comment: NOTE: The therapeutic time for Heparin anticoagulation, based on Xa activity inhibition, is an APTT of 46-80 seconds. Performed By: #### ICA, HGHCT, BMP3, PT, APTT #### The performing lab is in the report. APTT Collected: 05/08/2017 Status: F Source: [employer] 4:10 AM SYSTEM REPOSITORY TYPE CODE TESTS RESULT OUT OF RANGE REFERENCE UNITS LAB PTTA 20.0-30.5 s APTT 23.2 Result Comment: NOTE: The therapeutic time for Heparin anticoagulation, based on Xa activity inhibition, is an APTT of 46-80 seconds. Performed By: #### HGHCT, APTT #### The performing lab is in the report. BASIC METABOLIC PANEL Collected: 05/08/2017 Status: F Source: [employer] 4:10 AM SYSTEM REPOSITORY TYPE CODE TESTS RESULT OUT OF REFERENCE UNITS RANGE LAB NA3 137-145 mmol/L Sodium 138 LAB K3 3.5-5.1 mmol/L Low Potassium 3.1 LAB CL3 98-107 mmol/L Chloride 105 LAB CO23 22-30 mmol/L Carbon Dioxide 28 LAB ANIN3 Anion Gap 5 LAB GLUC3 70-100 mg/dL Glucose High 104 LAB BUN3 7-20 mg/dL Urea High Nitrogen 21 LAB CRET3 0.52-1.25 mg/dL Creatinine 0.66 LAB GF3BR >60 mL/min eGFR >60.0 LAB GF3WR >60 mL/min eGFR OTHER >60.0 Result Comment: Source- MDRD equation with creatinine calibration to IDMS(NKDEP) eGFR not recommended for drug dose adjustment LAB CA3 8.4-10.2 mg/dL Low Calcium 7.9 Performed By: #### HEMOG, ICA, BMP3, MG3, PHOS3 #### The performing lab is in the report. MAGNESIUM Collected: 05/08/2017 Status: F Source: [employer] 4:10 AM SYSTEM REPOSITORY TYPE CODE TESTS RESULT OUT OF REFERENCE UNITS RANGE LAB MG3 1.6-2.3 mg/dL Magnesium 1.6 Performed By: #### HEMOG, ICA, BMP3, MG3, PHOS3 #### The performing lab is in the report. PHOSPHORUS Collected: 05/08/2017 Status: F Source: [employer] 4:10 AM SYSTEM REPOSITORY TYPE CODE TESTS RESULT OUT OF REFERENCE UNITS RANGE LAB PHOS3 2.5-4.5 mg/dL Phosphorus 3.6 Performed By: #### HEMOG, ICA, BMP3, MG3, PHOS3 #### The performing lab is in the report. HEMOGLOBIN Collected: 05/08/2017 Status: F Source: [employer] 4:10 AM SYSTEM REPOSITORY TYPE CODE TESTS RESULT OUT OF REFERENCE UNITS RANGE LAB HGB 11.7-16.0 g/dL Low Hemoglobin 9.7 LAB HCT 35.0-47.0 % Low Hematocrit 27.8 Performed By: #### HGHCT #### The performing lab is in the report. HEMOGRAM Collected: 05/07/2017 Status: F Source: [employer] 9:40 PM SYSTEM REPOSITORY TYPE CODE TESTS RESULT OUT OF REFERENCE UNITS RANGE LAB IWBC 3.6-10.7 10*3/uL WBC High 11.1 LAB RBC 3.80-5.20 10*6/uL Low RBC 2.38 LAB HGB 11.7-16.0 g/dL Low Hemoglobin 7.0 LAB HCT 35.0-47.0 % Low Hematocrit 20.5 LAB MCV 79.0-98.0 fL MCV 86.2 LAB MCH 26.0-34.0 pg MCH 29.5 LAB MCHC 32.0-36.0 % MCHC 34.2 LAB RDW 11.5-14.5 % RDW 14.5 LAB PLT 140-440 10*3/uL Low Platelet 115 LAB MPV 7.4-10.4 fL MPV 8.8 Performed By: #### HEMOG, ICA, BMP3, MG3, PHOS3 #### The performing lab is in the report. CALCIUM,IONIZED Collected: 05/07/2017 Status: F Source: [employer] 9:40 PM SYSTEM REPOSITORY TYPE CODE TESTS RESULT OUT OF REFERENCE UNITS RANGE LAB ICAL 4.30-5.20 mg/dL Ionized 4.50 Ca,Measured LAB PHICA 7.31-7.46 pH, Ionized 7.37 Calcium Performed By: #### HEMOG, ICA, BMP3, MG3, PHOS3 #### The performing lab is in the report. HEMOGLOBIN Collected: 05/07/2017 Status: F Source: [employer] 3:39 PM SYSTEM REPOSITORY TYPE CODE TESTS RESULT OUT OF REFERENCE UNITS RANGE LAB HGB 11.7-16.0 g/dL Low Hemoglobin 8.0 LAB HCT 35.0-47.0 % Low Hematocrit 23.1 Performed By: #### HGHCT, APTT #### The performing lab is in the report. PROTHROMBIN TIME Collected: 05/07/2017 Status: F Source: [employer] 11:46 AM SYSTEM REPOSITORY TYPE CODE TESTS RESULT OUT OF REFERENCE UNITS RANGE LAB PROTM 9.0-12.0 s Prothrombin Time 11.4 Result Comment: . LAB INR 0.9-1.1 INR 1.1 Result Comment: Recommended Anticoagulant Therapy: SEE BELOW ----- INR of 2.0 - 3.0 : - Prophylaxis of Venous Thrombosis (high-risk surgery) - Treatment of Venous Thrombosis - Treatment of Pulmonary Embolism (Includes tissue heart valves, Acute Myocardial Infarction to prevent systemic embolism, Valvular Heart Disease, and Atrial Fibrillation) ----- INR of 2.5 - 3.5 : - Mechanical Prosthetic Valves (high risk) - If oral anticoagulant therapy is used to prevent Myocardial Infarction Performed By: #### PT #### The performing lab is in the report. PROCALCITONIN Collected: 05/07/2017 Status: F Source: [employer] 10:24 AM SYSTEM REPOSITORY TYPE CODE TESTS RESULT OUT OF REFERENCE UNITS RANGE LAB PRO <0.10 ng/mL Procalcitonin <0.10 LAB INT3 Interpretation See Below Result Comment: PCT <0.50 = Low risk of severe sepsis and/or septic shock. PCT >2.00 = High risk of severe sepsis and/or septic shock. Performed By: #### ICA, LACT3, HGHCT, PCAL #### The performing lab is in the report. CALCIUM,IONIZED Collected: 05/07/2017 Status: F Source: [employer] 10:15 AM SYSTEM REPOSITORY TYPE CODE TESTS RESULT OUT OF REFERENCE UNITS RANGE LAB ICAL 4.30-5.20 mg/dL Ionized 4.80 Ca,Measured LAB PHICA 7.31-7.46 pH, Ionized 7.33 Calcium Performed By: #### ICA, LACT3, HGHCT, PCAL #### The performing lab is in the report. LACTIC ACID Collected: 05/07/2017 Status: F Source: [employer] 10:15 AM SYSTEM REPOSITORY TYPE CODE TESTS RESULT OUT OF REFERENCE UNITS RANGE LAB LACT3 0.7-2.0 mmol/L Low Lactic Acid 0.6 Performed By: #### ICA, LACT3, HGHCT, PCAL #### The performing lab is in the report. HEMOGLOBIN Collected: 05/07/2017 Status: F Source: [employer] 10:12 AM SYSTEM REPOSITORY TYPE CODE TESTS RESULT OUT OF REFERENCE UNITS RANGE LAB HGB 11.7-16.0 g/dL Low Hemoglobin 7.7 LAB HCT 35.0-47.0 % Low Hematocrit 22.4 Performed By: #### ICA, LACT3, HGHCT, PCAL #### The performing lab is in the report. CR CHEST PORTABLE Observed: 05/07/2017 Status: F Source: [employer] 9:06 AM SYSTEM REPOSITORY Patient Name: GABY SCHUSTER Diagnostic Radiology Exam Date/Time 05/07/2017 07:41:45 EST Exam CR Chest Portable Ordering Physician REMY MEZA D.O. Accession Number [id number] CPT4 Codes 05523 () Reason For Exam acidosis Report Clinical indications: Acidosis FINDINGS: A single view is submitted and compared with a previous exam from 05/06/2017. Right IJ central line is unchanged and remains satisfactory in position. The cardiomediastinal silhouette is stable and essentially unremarkable. Pulmonary hyperexpansion is redemonstrated. There is no evidence of new superimposed infiltrate, effusion, CHF or pneumothorax. Osseous and soft tissue structures remain intact. IMPRESSION: No significant change when compared with prior study. Report Dictated on Final Dictated: 05/07/2017 9:06 am Dictating Physician: MD RIVER RUSSELL Signed Date and Time: 05/07/2017 9:06 am Signed by: MD RIVER RUSSELL Transcribed Date and Time: 05/07/2017 9:06 HEMOGLOBIN Collected: 05/07/2017 Status: F Source: [employer] 6:16 AM SYSTEM REPOSITORY TYPE CODE TESTS RESULT OUT OF REFERENCE UNITS RANGE LAB HGB 11.7-16.0 g/dL Low Hemoglobin 8.2 LAB HCT 35.0-47.0 % Low Hematocrit 23.8 Performed By: #### ICA, HGHCT #### The performing lab is in the report. CALCIUM,IONIZED Collected: 05/07/2017 Status: F Source: [employer] 2:01 AM SYSTEM REPOSITORY TYPE CODE TESTS RESULT OUT OF REFERENCE UNITS RANGE LAB ICAL 4.30-5.20 mg/dL Low Ionized 4.20 Ca,Measured LAB PHICA 7.31-7.46 Low pH, Ionized 7.30 Calcium Performed By: #### ICA, HGHCT #### The performing lab is in the report. BASIC METABOLIC PANEL Collected: 05/07/2017 Status: F Source: [employer] 1:28 AM SYSTEM REPOSITORY TYPE CODE TESTS RESULT OUT OF REFERENCE UNITS RANGE LAB NA3 137-145 mmol/L Sodium 137 LAB K3 3.5-5.1 mmol/L Potassium 3.5 LAB CL3 98-107 mmol/L Chloride High 109 LAB CO23 22-30 mmol/L Carbon Dioxide 23 LAB ANIN3 Anion Gap 5 LAB GLUC3 70-100 mg/dL Glucose High 137 LAB BUN3 7-20 mg/dL Urea High Nitrogen 25 LAB CRET3 0.52-1.25 mg/dL Creatinine 0.79 LAB GF3BR >60 mL/min eGFR >60.0 LAB GF3WR >60 mL/min eGFR OTHER >60.0 Result Comment: Source- MDRD equation with creatinine calibration to IDMS(NKDEP) eGFR not recommended for drug dose adjustment LAB CA3 8.4-10.2 mg/dL Low Calcium 7.9 Performed By: #### BMP3, MG3, PHOS3, LFT3, HEMOG #### The performing lab is in the report. MAGNESIUM Collected: 05/07/2017 Status: F Source: [employer] 1:28 AM SYSTEM REPOSITORY TYPE CODE TESTS RESULT OUT OF REFERENCE UNITS RANGE LAB MG3 1.6-2.3 mg/dL Low Magnesium 1.3 Performed By: #### BMP3, MG3, PHOS3, LFT3, HEMOG #### The performing lab is in the report. PHOSPHORUS Collected: 05/07/2017 Status: F Source: [employer] 1:28 AM SYSTEM REPOSITORY TYPE CODE TESTS RESULT OUT OF REFERENCE UNITS RANGE LAB PHOS3 2.5-4.5 mg/dL Phosphorus 4.2 Performed By: #### BMP3, MG3, PHOS3, LFT3, HEMOG #### The performing lab is in the report. HEPATIC FUNCTION Collected: 05/07/2017 Status: F Source: [employer] 1:28 AM SYSTEM REPOSITORY TYPE CODE TESTS RESULT OUT OF REFERENCE UNITS RANGE LAB ALB3 3.5-5.0 g/dL Low Albumin, Serum 1.8 LAB TP3 6.3-8.2 g/dL Low Total Protein 3.7 LAB BILT3 0.2-1.3 mg/dL Bilirubin,Total 0.6 LAB BILD3 0.0-0.3 mg/dL Bilirubin,Direct 0.0 LAB ALKP3 38-126 U/L Low Alkaline Phosphatase <20 LAB ALT3 13-69 U/L ALT (SGPT) 22 LAB AST3 15-46 U/L Low AST (SGOT) 13 Performed By: #### BMP3, MG3, PHOS3, LFT3, HEMOG #### The performing lab is in the report. HEMOGRAM Collected: 05/07/2017 Status: F Source: [employer] 1:28 AM SYSTEM REPOSITORY TYPE CODE TESTS RESULT OUT OF REFERENCE UNITS RANGE LAB IWBC 3.6-10.7 10*3/uL WBC High 17.0 LAB RBC 3.80-5.20 10*6/uL Low RBC 2.97 LAB HGB 11.7-16.0 g/dL Low Hemoglobin 8.8 LAB HCT 35.0-47.0 % Low Hematocrit 25.4 LAB MCV 79.0-98.0 fL MCV 85.4 LAB MCH 26.0-34.0 pg MCH 29.6 LAB MCHC 32.0-36.0 % MCHC 34.6 LAB RDW 11.5-14.5 % RDW 14.5 LAB PLT 140-440 10*3/uL Low Platelet 105 LAB MPV 7.4-10.4 fL MPV 10.2 Performed By: #### BMP3, MG3, PHOS3, LFT3, HEMOG #### The performing lab is in the report. HEMOGLOBIN Collected: 05/06/2017 Status: F Source: [employer] 6:44 PM SYSTEM REPOSITORY TYPE CODE TESTS RESULT OUT OF REFERENCE UNITS RANGE LAB HGB 11.7-16.0 g/dL Low Hemoglobin 10.0 LAB HCT 35.0-47.0 % Low Hematocrit 28.5 Performed By: #### HGHCT #### The performing lab is in the report. XA SPECIAL ANGIOGRAPHY Observed: 05/06/2017 Status: F Source: [employer] PROCEDURE 5:36 PM SYSTEM REPOSITORY Patient Name: GABY SCHUSTER Special Procedures Exam Date/Time 05/06/2017 17:12:27 EST Exam XA Special Angiography Procedure Ordering Physician Michael TELLO, SALEEM Accession Number [id number] Reason For Exam UGI bleed, possible duodenal ulcer Report Reason for examination: Patient with acute upper GI bleed thought to be from the second portion duodenal region, skull and injected at outside hospital, transferred in, still with with transfusion requirement, tachycardia, but not on pressors. For angiogram and embolization. The patient's outside CT studies were reviewed. Procedure is performed on an urgent basis. The case was discussed with the ICU staff. The patient is awake, oriented and normally responsive. Informed consent was obtained from the patient for the procedure and sedation. Initially the procedure was performed with local anesthetic, but midway through the procedure, the patient was experiencing some discomfort and anxiety, and I gave her some mild sedation. Conscious sedation was performed by myself, with continuous monitoring by special procedures nursing staff. Intermittent IV doses of Versed and fentanyl were administered, titrated to clinical effect for procedural conscious sedation. A total of 1.0 mg of Versed and 50 micrograms of fentanyl were administered. Total sedation time was 30 minutes. Procedure was performed with biplane angio. [place] protocol was followed with time out. The right groin was prepped and draped in the usual fashion. All elements of sterile technique were applied: cap, mask, sterile gown, proper hand hygiene including sterile gloves, a large sterile sheet, and hospital-approved cutaneous antisepsis at the site. Sterile ultrasound was used for micropuncture single wall access of the right common femoral artery, with image capture confirming vessel patency and good single wall puncture. There was some moderately stenotic atherosclerotic plaque in the common femoral artery, but I was able to get clean access. Following sterile preparation, draping, and local anesthetic administration, access was gained at the right common femoral artery with ultrasound-guided micropuncture system, which was exchanged for a 5 Czech sheath. Using a 5 Czech Sos 2 catheter, I initially catheterize the celiac axis. FINDINGS: The celiac axis bifurcates into the common hepatic and splenic arteries. The proper hepatic supplies a normal size gastroduodenal artery, left hepatic, right gastric, and right hepatic artery branches. The distal splenic artery reveals a rim calcified aneurysm in the splenic hilum. The left gastric vessels arise proximally. No obvious extravasation was seen from the left gastric or right gastric distribution. The distal gastroduodenal artery is abnormal, with an area of focal stenosis, then fusiform dilatation, then narrowing into the pancreaticoduodenal arcades. GDA is patent. I do not visualize active extravasation, but this was clearly an abnormal distal GDA. I then did selective catheterization of the superior mesenteric artery, which short normal jejunal, ileal, right and middle colic branches. There is no extravasation. The decision was made to proceed with distal GDA embolization. Initially I switched to a C1 catheter, but I could not get this adequately seated in the celiac axis. I switched back to the sauce two catheter. The soft tissue catheter was well positioned and stable. I then used a Renegade microcatheter and transcend guidewire to gain microcatheter accessed although way down to the distal GDA. Embolization was performed with a 2-4 by 4 cm Vortex microcoil, which could up nicely. I then followed this with a 2-5 by 5 cm Vortex microcoil, and then a final 2-4 by 4 cm Vortex microcoil at the top of the curve in the GDA. Postembolization there was cessation of flow in the GDA, and a good postembolization appearance. There was no further evidence of any extravasation. The procedure was terminated at this time. The catheters and sheath were removed, and hemostasis was obtained with manual compression. A total of 10.7 minutes of biplane fluoroscopy time was used. Total Air Kerma Dose = 563 mGy. Total contrast approximately 95 ml of Isovue-300. Arterial access to closure time was approximately 50 minutes. IMPRESSION: CT angiogram demonstrated abnormal distal GDA, with a focal stenosis then a distal segment with fusiform dilatation. Active extravasation was not seen, however I did perform microcoil embolization of the distal GDA successfully. Incidental rim calcified splenic artery aneurysm. Report Dictated on Final Dictated: 05/06/2017 5:36 pm Dictating Physician: MD NIEVES DANIEL Signed Date and Time: 05/06/2017 5:47 pm Signed by: MD NIEVES DANIEL Transcribed Date and Time: 05/06/2017 5:36 12 LEAD ELECTROCARDIOGRAM Observed: 05/06/2017 Status: F Source: [employer] 2:46 PM [facility] REPOSITORY [facility] Cardiovascular Services [address] [place] [address] 12 Lead EKG 05/03/17 0840 MR#: [id number] Acct: [id number] Name: GABY SCHUSTER #: [id number] : 1945 72 From: Iván Cortés MD Attending Dr: Status: DEP ER Ordering Dr: Dawna Veras MD Date: 05/03/17 Location: ED Sex: F C Admitted: Test Reason : GENERAL ILLNESS Blood Pressure : / mmHG Vent. Rate : 096 BPM Atrial Rate : 096 BPM P-R Int : 140 ms QRS Dur : 068 ms QT Int : 360 ms P-R-T Axes : 056 053 057 degrees QTc Int : 454 ms Normal sinus rhythm Nonspecific ST abnormality Abnormal ECG Confirmed by IVÁN CORTÉS MD ([id number]), editorial intern MIGUE JOY ([id number]) on 05/06/2017 2:46:07 PM Referred By: Omar Bryant Confirmed By:IVÁN CORTÉS MD 05/06/17 1446 Date Iván Cortés MD CC: MD Jabari Veras; Omar Bryant MD Signed CR CHEST PORTABLE Observed: 05/06/2017 Status: F Source: [employer] 2:35 PM SYSTEM REPOSITORY Patient Name: GABY SCHUSTER Diagnostic Radiology Exam Date/Time 05/06/2017 13:14:58 EST Exam CR Chest Portable Ordering Physician REMY MEZA D.O. Accession Number [id number] CPT4 Codes 63228 () Reason For Exam RIJ place't Report EXAMINATION: Portable Chest, 3006 hours 05/06/2017. COMPARISON: None. REASON FOR STUDY: Line placement. FINDINGS: The cardiac silhouette is normal in size. No mediastinal abnormality is observed. The lungs are emphysematous. No abnormal pleuroparenchymal opacity is observed. Right jugular catheter projects about 2 cm below the lanie. CONCLUSION(S): 1. No evidence of pneumonia or other acute process. 2. Emphysematous changes. 3. Central venous catheter in the vicinity of the superior vena cava. Report Dictated on Final Dictated: 05/06/2017 2:35 pm Dictating Physician: MD BOLTON B NELSON Signed Date and Time: 05/06/2017 2:36 pm Signed by: MD BOLTON B NELSON Transcribed Date and Time: 05/06/2017 2:35 CALCIUM,IONIZED Collected: 05/06/2017 Status: F Source: [employer] 11:21 AM SYSTEM REPOSITORY TYPE CODE TESTS RESULT OUT OF REFERENCE UNITS RANGE LAB ICAL 4.30-5.20 mg/dL Low Ionized 3.60 Ca,Measured LAB PHICA 7.31-7.46 Low pH, Ionized 7.30 Calcium Performed By: #### ICA, APTT, HEMOG, BMP3, PT #### The performing lab is in the report. APTT Collected: 05/06/2017 Status: F Source: [employer] 11:21 AM SYSTEM REPOSITORY TYPE CODE TESTS RESULT OUT OF RANGE REFERENCE UNITS LAB PTTA 20.0-30.5 s APTT 23.7 Result Comment: NOTE: The therapeutic time for Heparin anticoagulation, based on Xa activity inhibition, is an APTT of 46-80 seconds. Performed By: #### ICA, APTT, HEMOG, BMP3, PT #### The performing lab is in the report. HEMOGRAM Collected: 05/06/2017 Status: F Source: [employer] 11:21 AM SYSTEM REPOSITORY TYPE CODE TESTS RESULT OUT OF REFERENCE UNITS RANGE LAB IWBC 3.6-10.7 10*3/uL WBC High 19.2 LAB RBC 3.80-5.20 10*6/uL Low RBC 3.33 LAB HGB 11.7-16.0 g/dL Low Hemoglobin 9.7 LAB HCT 35.0-47.0 % Low Hematocrit 29.2 LAB MCV 79.0-98.0 fL MCV 87.7 LAB MCH 26.0-34.0 pg MCH 29.2 LAB MCHC 32.0-36.0 % MCHC 33.3 LAB RDW 11.5-14.5 % RDW 14.5 LAB PLT 140-440 10*3/uL Low Platelet 104 LAB MPV 7.4-10.4 fL MPV 9.9 Performed By: #### ICA, APTT, HEMOG, BMP3, PT #### The performing lab is in the report. BASIC METABOLIC PANEL Collected: 05/06/2017 Status: F Source: [employer] 11:21 AM SYSTEM REPOSITORY TYPE CODE TESTS RESULT OUT OF REFERENCE UNITS RANGE LAB NA3 137-145 mmol/L Sodium 137 LAB K3 3.5-5.1 mmol/L Potassium 3.9 LAB CL3 98-107 mmol/L Chloride High 113 LAB CO23 22-30 mmol/L Low Carbon Dioxide 18 LAB ANIN3 Anion Gap 6 LAB GLUC3 70-100 mg/dL Glucose High 164 LAB BUN3 7-20 mg/dL Urea High Nitrogen 24 LAB CRET3 0.52-1.25 mg/dL Creatinine 0.61 LAB GF3BR >60 mL/min eGFR >60.0 LAB GF3WR >60 mL/min eGFR OTHER >60.0 Result Comment: Source- MDRD equation with creatinine calibration to IDMS(NKDEP) eGFR not recommended for drug dose adjustment LAB CA3 8.4-10.2 mg/dL Low Calcium 6.7 Performed By: #### ICA, APTT, HEMOG, BMP3, PT #### The performing lab is in the report. PROTHROMBIN TIME Collected: 05/06/2017 Status: F Source: [employer] 11:21 AM SYSTEM REPOSITORY TYPE CODE TESTS RESULT OUT OF REFERENCE UNITS RANGE LAB PROTM 9.0-12.0 s Prothrombin High Time 12.4 Result Comment: . LAB INR 0.9-1.1 High INR 1.2 Result Comment: Recommended Anticoagulant Therapy: SEE BELOW ----- INR of 2.0 - 3.0 : - Prophylaxis of Venous Thrombosis (high-risk surgery) - Treatment of Venous Thrombosis - Treatment of Pulmonary Embolism (Includes tissue heart valves, Acute Myocardial Infarction to prevent systemic embolism, Valvular Heart Disease, and Atrial Fibrillation) ----- INR of 2.5 - 3.5 : - Mechanical Prosthetic Valves (high risk) - If oral anticoagulant therapy is used to prevent Myocardial Infarction Performed By: #### ICA, APTT, HEMOG, BMP3, PT #### The performing lab is in the report. Observed: 05/06/2017 Status: F Source: [employer] TS GEL 11:21 AM SYSTEM REPOSITORY ABO Group: A Rh, Gel: NEG Antibody Screen Gel: NEG Performed By: #### TSGL, LRC #### [place] [address] Observed: 05/06/2017 Status: F Source: [facility] [employer] 11:21 AM SYSTEM REPOSITORY Leukodepleted Red Cells: [id number] transfused 05/06/17 13:01 DMN Unit Blood Type: A Unit Blood Rh: NEG Blood Product Code: AS1 Unit Number: [id number] Unit Status: transfused Barcoded Unit Number: =[id number] Barcoded Product Code: =<J1629J41 Barcoded ABO/Rh: =%0600 Unit Expiration: [id number] Unit Volume Transfused: 300 Unit Transfusion Start Date/Time: Performed By: #### TRISTON, RIZWANAC #### [place] [address] Observed: 05/06/2017 Status: F [facility]LL[facility] 11:21 AM SYSTEM REPOSITORY Leukodepleted Red Cells: [id number] transfused 05/07/17 22:31 DMN Unit Blood Type: A Unit Blood Rh: NEG Blood Product Code: AS3 Unit Number: [id number] Unit Status: transfused Barcoded Unit Number: =[id number] Barcoded Product Code: =<C7591L57 Barcoded ABO/Rh: =%0600 Unit Expiration: [id number] Unit Volume Transfused: 300 Unit Transfusion Start Date/Time: 404058691035 Leukodepleted Red Cells: [id number] transfused 05/08/17 01:52 JMV Unit Blood Type: A Unit Blood Rh: NEG Blood Product Code: AS3 Unit Number: [id number] Unit Status: transfused Barcoded Unit Number: =[id number] Barcoded Product Code: =<L7146J73 Barcoded ABO/Rh: =%0600 Unit Expiration: [id number] Unit Volume Transfused: 300 Unit Transfusion Start Date/Time: 160782439511 Performed By: #### TSGL, LRC #### [place] [address] OPERATIVE REPORT Observed: 05/06/2017 Status: F Source: [facility] 8:18 AM [facility] REPOSITORY [facility] Medical Records Department [address] [place] [address] [place] [address] Operative Report 05/06/17 0810 MR#: [id number] Acct: [id number] Name: GABY SCHUSTER Rep #: [id number] : 1945 72 From: Mar Alcocer MD PCP: Omar Bryant MD Status: ADM IN Y Location: ICU ICU02-1 Report of Operation Date of Procedure: 05/06/17 Pre-Operative Diagnosis: GI bleed Post-Operative Diagnosis: GI bleed - duodenal ulcer - active bleed Surgery/Procedure Performed:: EGD with injection of epinephrine chief meteorologist: None Type of Anesthesia:: IV Sedation Specimen's removed: none Estimated Blood Loss (mL): 1000cc Description of Procedure: The patient was maintained in the ICU. Sign in was performed verifying patient, site, planned procedure, critical nursing information, the patient was monitored with cardiac, pulse oximetric, EKG and blood pressure monitoring devices. IV sedation was provided via propofol with Dr. Alex Harry providing sedation. Following IV sedation and after the oropharynx was sprayed with Cetacaine spray, a video gastroscope was inserted in the oropharynx and advanced down the esophagus without difficulty. The scope was advanced through the stomach, through the pylorus through the duodenum to the proximal jejunum. bright red blood was encountered in the esophagus and stomach. This was aspirated. There was bright red clot noted in the antral area. This was irrigated off and attempted to be aspirated as best possible. The scope was inserted into the duodenum. There was a bright red clots with an older more adherent clot seen in the first portion of the duodenum along the lesser curvature felt to be towards the posterior aspect. Advancing the scope beyond this clot demonstrated normal second and third portion of the duodenum. As the scope was withdrawn. There was noted to be arterial oozing emanating from below the bright red clot. Attempts to irrigate off the clot were relatively unsuccessful. The clot was grasped with the snare and removed. This gave more brisk arterial bleeding. There is irrigated as best possible, but still poor visualization of the first portion of duodenum failed to reveal the discrete bleeding source. I bright red clot reestablished with oozing located around the clotting site. 4 injections of epinephrine were performed. This seemed to temporize the bleeding but still with a bright red clot and possibly some oozing my opinion was she was exceedingly high risk for rebleed. The patient was hemodynamically stable throughout, but still hypotensive and tachycardic. At the conclusion of the case, due to the fact that her bright red arterial blot clot was still present and oozing, and the patient was hypotensive in consultation with Dr. Harry, we felt the optimal treatment was to transfer the patient urgently to a tertiary care center for the ability for angiography. Since the heart. Serial bleed was felt to be temporized, but not completely controlled and the patient at a high risk of rebleed. The patient will be transferred to [facility]. The family is aware. - Admit VTE Documentation VTE Present on Admission: No 05/06/17817 <Electronically signed by Mar Alcocer MD> Date Mar Alcocer MD CC: Alex Harry MD; Omar Bryant MD; Mar Alcocer MD Signed DISCHARGE SUMMARY Observed: 05/06/2017 Status: F Source: [facility] 8:12 AM [facility] REPOSITORY [facility] Medical Records Department [address] [place] [address] Discharge Summary 05/06/17805 MR#: [id number] Acct: [id number] Name: GABY SCHUSTER Rep #: [id number] : 1945 72 From: Cornell Wilson DO PCP: Omar Bryant MD Status: ADM IN Location: ICU ICU02-1 Discharge Date and Diagnosis - Problem List Patient Problems: Active and Suspected Problems Upper GI bleed (Acute) Acute blood loss anemia (Acute) Hemorrhagic shock (Acute) Syncope (Acute) Date of Admission: 05/05/17 Date of Discharge: 05/06/17 - Primary Discharge Diagnosis Active and Suspected Problems Upper GI bleed (Acute) Acute blood loss anemia (Acute) Hemorrhagic shock (Acute) Syncope (Acute) - Secondary Discharge Diagnosis Chronic Problems HTN (hypertension) (Chronic) Hyperlipidemia (Chronic) DM2 (diabetes mellitus, type 2) (Chronic) Tobacco abuse (Chronic) Hospital Course and Treatment Imaging Results: Clinical Impression(s) from Imaging Studies Chest X-Ray 05/05/17 08:42 IMPRESSION: Hyperinflation. Electronically Signed: Maximiliano Norris MD at 9:08 EST Tel [phone], Service support , Alex Alcocer Operations: None Procedures: EGD Summary of Care Provided: The patient is a 72 year old F presents with syncope. Patient presented to the emergency room was hypotensive with systolic blood pressure 69/45, hemoglobin is 7.9, down from 13.4 on May 03. And patient also did have a lactic acid of 2.3. Patient was not have any active bleeding at that time. Concern was for acute blood loss anemia due to an upper GI bleed given patient's NSAID use. Discussed with the patient that if her bleeding does get worse that she may need to be transferred to another facility. Patient agreed to be admitted to [facility]. Patient was doing well patient did receive 1 unit of blood hemoglobin after transfusion was 7.7 drifted down to 7.4 but was otherwise stable. Then approximately 4 AM on the , patient started having melena again. Dr. Sutton, general surgery was initially planning on doing EGD at 10 AM but that was moved up to 6 AM. A visible vessel was noted but bleeding could not be stopped. Patient is currently now receiving her fifth unit of blood. There is been recommended patient go to tertiary facility for possible embolization of the lesion. Dr. Harry spoke with Dr. Dunlap at [facility] and has agreed to accept the patient to their ICU. Patient is otherwise hemodynamically stable at this time though little bit tachycardic at 116. [] Discharge Diet: - - N.p.o. for now Discharge Activity: - - Bedrest for now Home Medications: Medications to take at Discharge Atenolol [Tenormin (Beta Denia)] 25 mg PO DAILY 05/03/17 Citalopram [Celexa] 20 mg PO DAILY 05/03/17 Gabapentin [Neurontin] 100 mg PO BID 05/03/17 Hydrochlorothiazide 12.5 mg PO DAILY 05/03/17 Lorazepam [Ativan] 0.5 mg PO TID 05/03/17 Potassium Chloride [Klor-Con Sprinkle] 10 meq PO DAILY 05/03/17 Zolpidem Tartrate [Ambien] 10 mg PO DAILY 05/03/17 Lisinopril [Prinivil] 10 mg PO DAILY 05/05/17 Primary Care Physician: Omar Bryant MD [Primary Care Provider] - Disposition: [facility] Minutes spent on discharge:: 32 Patient Condition:: Critical Meaningful Use Info Meaningful Use Diagnoses (Choose all that apply): None applicable Code Visit Inpatient E AND M: 78350 Disch Hosp 05/06/17 0811 <Electronically signed by Cornell Wilson DO> Date Cornell Wilson DO Cosigner Signature (if applicable): Date CC: Cornell Wilson DO; Omar Bryant MD Signed BEDSIDE GLUCOSE Collected: 05/06/2017 Status: F Source: [place] 5:45 AM [facility] REPOSITORY TYPE CODE TESTS RESULT OUT OF REFERENCE UNITS RANGE LAB L501.080 70-110 mg/dL High BEDSIDE GLU 154 Result Comment: MANAGEMENT OF PATIENT CARE PER NURSING PROTOCOL Performed By: #### L501.080 #### [facility] Point of Care [address] [place] [address] CONSULTATION Observed: 05/06/2017 Status: F Source: [place] 5:32 AM [facility] REPOSITORY [facility] Medical Records Department [address] [place] [address] Consultation 05/05/17 1113 MR#: [id number] Acct: [id number] Name: GABY SCHUSTER Rep #: [id number] : 1945 72 From: Alex Harry MD PCP: Omar Bryant MD Status: ADM IN Y Location: ICU ICU02-1 Problem List (1) Tobacco abuse Status: Chronic (2) Upper GI bleed Status: Acute (3) Acute blood loss anemia Status: Acute (4) HTN (hypertension) Status: Chronic Qualifiers: Hypertension type: essential hypertension Qualified Code(s): I10 - Essential (primary) hypertension (5) Hyperlipidemia Status: Chronic Qualifiers: Hyperlipidemia type: pure hypercholesterolemia Qualified Code(s): E78.00 - Pure hypercholesterolemia, unspecified; E78.0 - Pure hypercholesterolemia (6) DM2 (diabetes mellitus, type 2) Status: Chronic Qualifiers: Diabetes mellitus complication status: with unspecified complications 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 Patient had been seen 2 days prior in the emergency room with concerns for metformin toxicity. Patient reported that she had developed some nausea and vomiting at that time, but no diarrhea. Patient was given supportive care and discharged home. Patient presented today following a syncopal event that she believes was only brief. Family was contacted and urged her to come to the emergency room for evaluation. Patient has reported nausea and vomiting, but no hematemesis. Patient has noted some darker stools recently over the last 2 days. On presentation to the emergency room, patient was initially noted to have a blood pressure of 69/45 with a heart rate of 112 bpm. Patient was noted to have dry mucous membranes with a nonfocal neurologic exam. Lab work showed a 5 g drop in hemoglobin over the last 2 days and a low potassium of 3.1. Creatinine was slightly increased compared to previous. Chest x-ray showed no acute abnormality. Patient was noted to have an elevated lactate. Patient received 2 hours of IV fluid with significant improvement in blood pressure and symptomatology. Patient was also given IV Protonix and Dr. Sutton was contacted for an upper GI. Patient was then transported to the intensive care unit for further monitoring. She denies any previous history of GI bleed. Patient does report that she regularly uses 2 Aleve every morning and 2 Advil PM every evening secondary to chronic back pain. Patient states this does control her symptoms. Patient also reports a long smoking history, but is never seen a continuous pickling line pickler helper or had pulmonary function testing. Patient has never been admitted for breathing issues previously. Patient reports that she was recently diagnosed with diabetes and has a hemoglobin A1c of 7.9. Patient has been titrating up her metformin and recently was placed on 1.5 g. Past Medical History Past Medical History (Chronic Problems): Chronic Problems HTN (hypertension) (Chronic) Hyperlipidemia (Chronic) DM2 (diabetes mellitus, type 2) (Chronic) Tobacco abuse (Chronic) Allergies No Known Allergies Allergy (Verified 05/05/17 08:28) Home Medications: Ambulatory Orders Medication Instructions Recorded Atenolol [Tenormin (Beta Denia)] 50 mg PO DAILY 05/03/17 Psychiatric History: No pertinent psych hx Smoking Status: Light Smoker (<10/day) Tobacco Use: Cigarettes Alcohol: None Drugs: None - *Family History Maternal History Items: - - No coronary artery disease Review of Systems Constitutional: Reports: Malaise, Weakness, Fatigue. Denies: Anorexia, Chills, Fever, Night Sweats Eyes: Denies: Blurred vision, Cataracts, Double vision, Drainage, Eyelid Inflammation, Pain, Redness HEENT: Reports: Head Aches. Denies: Difficulty Hearing, Difficulty Swallowing, Dysphasia, Ear Pain, Hard of Hearing, Nasal bleeding, Nasal Congestion, Post Nasal Drip, Sinus Congestion, Sore Throat Cardiovascular: Reports: Syncope. Denies: Chest Pain, Chest Pressure, Chest Tightness, Edema, Heaviness, Orthopnea, Palpitations Respiratory: Denies: Cough, Pleuritic Pain, Shortness of Breath, Sputum production, Wheezing Gastrointestinal: Reports: Constipation, Nausea, Vomiting, - - Black stools noted. Denies: Hematemesis, Hematochezia Genitourinary: Denies: Dysuria, Hematuria, Hesitancy, Incontinence, Retention Gynecological: Denies: Breast symptoms, Excessively long or heavy periods Musculoskeletal: Denies: Joint stiffness, Joint swelling, Joint Tenderness Skin: Denies: Dryness, Lesions Neurological: Denies: Balance problems, Double vision, Change in Speech, Slurred speech, Confusion, Focal weakness, Incoordination, Tingling Psychiatric: Denies: Anxiety, Depression, Homicidal Ideations, Suicidal Ideations Endocrine: Denies: Change in Body Habitus, Heat/ Cold Intolerance, Polydipsia Hematologic/ Lymphatic: Denies: Adenopathy, Easy Bruising, Hx of blood clot Comment: Review of systems otherwise negative 10 systems. Patient Problems: Active and Suspected Problems Upper GI bleed (Acute) Acute blood loss anemia (Acute) Hemorrhagic shock (Acute) Syncope (Acute) Objective: X-ray was personally reviewed and shows no acute infiltrates. - Physical Exam General: Alert, Oriented x3, Cooperative, - - Mild distress. Appears stated age. Obese. Appears pale. HEENT: Atraumatic, PERRLA, EOMI, Normocephalic, - - Pale conjunctiva Oral: No Gingival or Mucosal Lesions/ Ulcerations, Dry Mucosa Neck: Supple, No JVD, No Nodes, Trachea Midline Lungs: Clear to auscultation, No rhonchi, No wheeze, No rales, - - Symmetric expansion. Cardiovascular: Regular rate, Regular Rhythm, Normal S1, Normal S2, No murmurs, No rub noted, No Gallop Abdomen: Bowel Sounds Present, Soft, Non Tender, Non-Distended, Obese Extremities: No clubbing, No cyanosis, No edema, Capillary Refill Less than 3 Seconds Skin: No rashes, No breakdown Musculoskeletal: No Tenderness to Palpation of Joints or Extremities, No Muscle Wasting Lymphatic: No Cervical, Supraclavicular, or Inguinal Adenopathy Neurological: Cranial nerves II-XII grossly intact, Neuro grossly intact, Motor Exam 5/5 strength throughout, Sensory exam intact to light touch and pain Psych/Mental Status: Alert and oriented to time, place, person, mood and affect Vital Signs Temp Pulse Resp BP Pulse Ox 36.4 C L 88 21 H 86/65 L 100 05/05/17 08:28 05/05/17 10:13 05/05/17 10:13 05/05/17 10:13 05/05/17 10:13 Laboratory Tests WBC 14.4 H RBC 2.60 L Hgb 7.9 L Hct 23.0 L MCV 88.5 MCH 30.4 MCHC 34.3 RDW 13.2 RDW Differential 42.7 WBC 12.9 H RBC 2.27 L Hgb 7.1 L WBC RBC Hgb Hct MCV MCH MCHC Clinical Impression(s) from Imaging Studies Chest X-Ray 05/05/17 08:42 IMPRESSION: Hyperinflation. Electronically Signed: Maximiliano Norris MD at 9:08 EST Tel [phone], Service support , Assessment/Plan Active and Suspected Problems Upper GI bleed (Acute) Acute blood loss anemia (Acute) Hemorrhagic shock (Acute) Syncope (Acute) RECOMMENDATIONS: 1. Transfusions as ordered 2. H AND H every 6 hours, obtain coagulation studies now 3. Fluid boluses as necessary 4. Repeat lactate, blood sugar checks with sliding scale insulin 5. Bronchodilators as needed, hold all home NSAIDs IMPRESSIONS: 1. Hemorrhagic shock secondary to suspected upper GI bleed Exact etiology is unclear at this time. Patient has had no hematemesis, so clinical suspicion is for duodenal ulcer with bleeding. Current H AND H is 5 g below 2 days ago indicating significant bleeding. Will obtain regulation studies to make sure patient does not have a consumptive coagulopathy. Repeat H AND H's every 6 hours until EGD. Patient is on IV Protonix. 2. Acute blood loss anemia secondary to suspected upper GI bleed Patient with significant drop in hemoglobin over the last 2 days. However, patient is not reporting hematemesis or hematochezia. Will continue to monitor closely with H AND H's. Did discuss with surgery and patient can be emergently scoped if necessary, but currently EGD is planned for tomorrow around 10 AM. Patient has no religion convictions against blood transfusions. Will attempt to keep hemoglobin greater than 8. 3. Acute kidney injury/hypokalemia Likely prerenal etiology. Patient has received fluid with good response in blood pressure. We will continue to monitor closely. Potassium supplementation as indicated. 4. Advanced age/long smoking history/diabetes mellitus Patient does have an element of hyperinflation noted on chest x-ray. Patient may benefit from aerosol therapy if shortness of breath develops. Will hold diabetic medications. Patient can continue on sliding scale insulin with blood sugar checks. Patient would likely benefit from outpatient complete pulmonary function test. Code Visit Inpatient E AND M: 46031 Init Hosp L3 05/06/17 0532 <Electronically signed by Alex Harry MD> Date Alex Harry MD Cosigner Signature (if applicable): Date CC: Alex Harry MD; Omar Bryant MD; Mar Alcocer MD Signed CBC W/DIFF, AUTOMATED Collected: 05/06/2017 Status: C Source: [place] 5:10 AM [facility] REPOSITORY TYPE CODE TESTS RESULT OUT OF RANGE REFERENCE UNITS LAB L100.1000 4.4-11.0 K/mm3 Normal WBC 9.8 LAB L100.1200 4.2-5.4 M/mm3 Low RBC 1.86 LAB L100.1300 12.0-15.0 g/dl Low alert HGB 5.7 Result Comment: CRITICAL VALUE VERIFIED. CALLED TO [facility] ICU 05/06/17 0522 Evelin Gan. RESULTS READ BACK BY SAME . LAB L100.1400 37-47 % Low HCT 16.9 LAB L100.1500 81-99 fL Normal MCV 90.9 LAB L100.1600 27.0-32.0 pg Normal MCH 30.6 LAB L100.1700 32-36 g/gl Normal MCHC 33.7 LAB L100.1810 11.6-14.6 % Normal RDW CV 13.8 LAB L100.1820 35.1-43.9 fl Normal RDW SD 41.9 LAB L100.1900 150-450 K/mm3 Low PLT 147 LAB L100.2000 6.2-12.0 fl Normal MPV 11.1 LAB L100.2100 47-70 % High NEUT% 73.1 LAB L100.2200 19-41 % Low LY% 17.2 LAB L100.2300 0-10 % Normal MONO% 9.2 LAB L100.2400 0-5 % Normal EO% 0.1 LAB L100.2500 0-1 % Normal BASO% 0.2 LAB L100.2550 0.0-0.9 % Normal IM GRAN % 0.200 Result Comment: IG% - Immature Granulocytes (promyelocytes, myelocytes and metamyelocytes) > 1% indicates that a LEFT SHIFT is Present. LAB L100.2620 2.0-7.7 X10 3/uL Normal Absolute Neut 7.2 LAB L100.2720 0.83-4.51 X10 3/ul Normal Absolute Lymph 1.69 LAB L100.9900 Normal PATH REV Reviewed Result Comment: Severe Normocytic anemia. Clinical correlation necessary. Dave Rock M.D. 05/06/17 AMENDED REPORT 05/06/17 1249 PATH REV previously reported as: June jose l Performed By: #### L100.0100 #### [facility] [address] [place], [address] BASIC METABOLIC Collected: 05/06/2017 Status: F Source: [place] PROFILE (BMP) 5:10 AM [facility] REPOSITORY TYPE CODE TESTS RESULT OUT OF RANGE REFERENCE UNITS LAB L501.0100 74-106 mg/dL High GLU 152 Result Comment: Fasting Glucose result greater than or equal to 126 mg/dL suggests DIABETES MELLITUS per A.D.A. criteria. Please note revised GLUCOSE reference range effective 2017. LAB L501.1000 7-18 mg/dL High BUN 27 LAB L501.1100 0.55-1.02 mg/dL Normal CREAT,SERUM 0.56 Result Comment: The validity of the calculated GFR AND GFRAA in patients over 70 years has not been determined. Clinical correlation is essential. LAB L501.1110 >60 mL/min Normal EST GFR 113 Result Comment: Non- GFR Calc LAB L501.1115 >60 mL/min Normal EST GFR - AA 137 Result Comment: GFR Calc LAB L501.1255 ml/min Normal Estimated CRCL 40.81 LAB L501.1300 10-20 RATIO High BUN/CRE 48.0 LAB L501.2200 8.5-10 mg/dL Low .1 CA alert 6.2 Result Comment: Critical Result(s) Called at: 05:40:38 05/06/2017 by: GERALD MACE to Karoline Arredondo LAB L501.5300 136-145 mmol/L Normal NA 145 LAB L501.5600 3.5-5.1 mmol/L Normal K 3.8 LAB L501.5900 98-107 mmol/L High CL 115 LAB L501.6100 21.0-32.0 mmol/L Normal CO2 21.0 LAB L501.6200 5-15 Normal 9 GAP Performed By: #### L500.2500 #### [facility] [address] [place], [address] BEDSIDE GLUCOSE Collected: 05/06/2017 Status: F Source: [place] 1:17 AM [facility] REPOSITORY TYPE CODE TESTS RESULT OUT OF REFERENCE UNITS RANGE LAB L501.080 70-110 mg/dL High BEDSIDE GLU 129 Result Comment: MANAGEMENT OF PATIENT CARE PER NURSING PROTOCOL Performed By: #### L501.080 #### [facility] Point of Care [address] [place] [address] CNOP Observed: 05/06/2017 Status: COMPLETED Source: CLANCY 12:00 AM [facility] REPOSITORY Operative Note (Enc) (GENSWS) Progress Notes: Mar Alcocer MD 05/15/2017 10:15 AM Signed OPERATIVE NOTATION FOR [facility] SURGICAL PROCEDURE. May 06, 2017 Gaby Schuster 1945 [id number] female PROCEDURE: EGD WITH CONTROL OF BLEEDING - [id number] SURGEON: Yolanda Alcocer M.D. FACS STATION WORKER: None DEPT: WQ PROVIDER: [id number]=MwlmykbMar Alcocer MD POS: 0T1=VIZUXCOOS DIAGNOSIS: (K92.2) GI bleed requiring more than 4 units of blood in 24 hours, ICU, or surgery (primary encounter diagnosis) (K26.0) Acute duodenal ulcer with hemorrhage ASA CLASS: 4E - Life threatening emergency FINDINGS: bleeding duodenal COMPLICATIONS: None PMHx - No past medical history on file. COMORBIDITIES - None Post Op Occurrences - None Wound Classification - Clean Contaminated Operative note dictated in the [facility] dictation system. Mar Alcocer MD Encounter Status:Closed by MAR ALCOCER MD on 05/15/17 BEDSIDE GLUCOSE Collected: 05/05/2017 Status: F Source: [place] 11:44 PM [facility] REPOSITORY TYPE CODE TESTS RESULT OUT OF RANGE REFERENCE UNITS LAB L501.080 70-110 mg/dL Normal BEDSIDE GLU 105 Result Comment: MANAGEMENT OF PATIENT CARE PER NURSING PROTOCOL Performed By: #### L501.080 #### [facility] [place] [address] CBC W/DIFF, AUTOMATED Collected: 05/05/2017 Status: F Source: [place] 10:00 PM [facility] REPOSITORY TYPE CODE TESTS RESULT OUT OF RANGE REFERENCE UNITS LAB L100.1000 4.4-11.0 K/mm3 Normal WBC 9.3 LAB L100.1200 4.2-5.4 M/mm3 Low RBC 2.41 LAB L100.1300 12.0-15.0 g/dl Low HGB 7.4 LAB L100.1400 37-47 % Low HCT 21.1 LAB L100.1500 81-99 fL Normal MCV 87.6 LAB L100.1600 27.0-32.0 pg Normal MCH 30.7 LAB L100.1700 32-36 g/gl Normal MCHC 35.1 LAB L100.1810 11.6-14.6 % Normal RDW CV 14.0 LAB L100.1820 35.1-43.9 fl High RDW SD 44.2 LAB L100.1900 150-450 K/mm3 Normal PLT 166 LAB L100.2000 6.2-12.0 fl Normal MPV 10.3 LAB L100.2100 47-70 % Normal NEUT% 63.3 LAB L100.2200 19-41 % Normal LY% 27.0 LAB L100.2300 0-10 % Normal MONO% 8.8 LAB L100.2400 0-5 % Normal EO% 0.6 LAB L100.2500 0-1 % Normal BASO% 0.2 LAB L100.2550 0.0-0.9 % Normal IM GRAN % 0.100 Result Comment: IG% - Immature Granulocytes (promyelocytes, myelocytes and metamyelocytes) > 1% indicates that a LEFT SHIFT is Present. LAB L100.2620 2.0-7.7 X10 3/uL Normal Absolute Neut 5.9 LAB L100.2720 0.83-4.51 X10 3/ul Normal Absolute Lymph 2.52 Performed By: #### L100.0100 #### [facility] [address] [place], [address] BEDSIDE GLUCOSE Collected: 05/05/2017 Status: F Source: [place] 5:36 PM [facility] REPOSITORY TYPE CODE TESTS RESULT OUT OF RANGE REFERENCE UNITS LAB L501.080 70-110 mg/dL Normal BEDSIDE GLU 94 Result Comment: MANAGEMENT OF PATIENT CARE PER NURSING PROTOCOL Performed By: #### L501.080 #### [facility] Point of Care [address] [place] [address] CONSULTATION Observed: 05/05/2017 Status: F Source: [place] 5:34 PM [facility] REPOSITORY [facility] Medical Records Department [address] [facility] [place] [address] Consultation 05/05/17 1729 MR#: [id number] Acct: [id number] Name: GABY SCHUSTER Rep #: [id number] : 1945 72 From: Mar Alcocer MD PCP: Omar Bryant MD Status: ADM IN Y Location: ICU ICU02-1 Reason for Consult Date of Consultation: 05/05/17 History of Present Illness: The patient is a 72 year old F who is noticed black stools and then maroon stools for the last 2 days, followed by a syncopal episode. The patient was seen and emerged prep and 2 days previously for was felt to be metformin toxicity. Her hemoglobin was 13 at that time. She presents today with a hemoglobin of 7.9, tachycardic and hypotensive. the patient takes nonsteroidal medications, smokes, and has stress. She denies alcohol use. She notes a degree of epigastric discomfort. She denies nausea or vomiting. She has not had a previous colonoscopy. She has not had upper endoscopy. Past Medical History Past Medical History (Chronic Problems): Chronic Problems HTN (hypertension) (Chronic) Hyperlipidemia (Chronic) DM2 (diabetes mellitus, type 2) (Chronic) Tobacco abuse (Chronic) Allergies No Known Allergies Allergy (Verified 05/05/17 08:28) Home Medications: Ambulatory Orders Medication Instructions Recorded Atenolol [Tenormin (Beta Denia)] 25 mg PO DAILY 05/03/17 Psychiatric History: No pertinent psych hx Smoking Status: Light Smoker (<10/day) Tobacco Use: Cigarettes Alcohol: None Drugs: None - *Family History Maternal History Items: - - No coronary artery disease Review of Systems Constitutional: Reports: Weakness, Fatigue. Denies: Chills, Fever, Weight Change HEENT: Denies: Head Aches, Sinus Congestion, Sinus Drainage Cardiovascular: Reports: Syncope. Denies: Chest Pain, Palpitations Respiratory: Denies: Cough, Shortness of breath at rest, Sputum production Gastrointestinal: Reports: Hematochezia, Melena. Denies: Abdominal Pain, Nausea, Vomiting Genitourinary: Denies: Dysuria Musculoskeletal: Denies: Joint Pain, Joint Tenderness Skin: Denies: Rash, Wounds Neurological: Denies: Numbness, Tingling, Focal weakness Psychiatric: Denies: Anxiety, Depression, Homicidal Ideations, Suicidal Ideations Hematologic/ Lymphatic: Denies: Easy Bruising, Easy Bleeding Patient Problems: Active and Suspected Problems Upper GI bleed (Acute) Acute blood loss anemia (Acute) Hemorrhagic shock (Acute) Syncope (Acute) - Physical Exam General: Alert, Oriented x3 Lungs: Clear to auscultation, Normal air movement Cardiovascular: Regular Rhythm, Tachycardic Abdomen: Bowel Sounds Present, Soft, Non Tender Vital Signs Temp Pulse Resp BP Pulse Ox 97.8 F 83 18 110/68 100 05/05/17 17:00 05/05/17 17:00 05/05/17 17:00 05/05/17 17:00 05/05/17 17:00 Oxygen Flow Rate (L/min) 2 Oxygen Delivery Method Nasal Cannula Weight: 75.7 kg Body Mass Index (BMI) 30.5 Intake and Output for Last 24 Hours Intake Total 400 / 400 Balance 400 / 400 Laboratory Tests Past 24 Hrs WBC 12.9 H RBC 2.27 L Hgb 7.1 L Hct 20.5 L MCV 90.3 MCH 31.3 MCHC 34.6 RDW 12.7 RDW Differential 39.1 WBC 11.5 H RBC 2.54 L Hgb 7.7 L POC Glucose POC Glucose 150 H Assessment/Plan Active and Suspected Problems Upper GI bleed (Acute) Acute blood loss anemia (Acute) Hemorrhagic shock (Acute) Syncope (Acute) [place], acute blood loss anemia-most likely upper GI bleed Patient's preliminary to the ICU. She is being transfused. Coags will be checked. If the patient remains stable, we will plan for semiurgent endoscopy tomorrow. If during transfusion, the patient has further significant bleeding episodes or becomes hemodynamically unstable, will perform urgent upper endoscopy in the ICU. Patient understands the risks, benefits, possible complications and consents to upper endoscopy. The patient is currently being giving proton pump inhibitors, IV every 12 hours. 05/05/17 1734 <Electronically signed by Mar Alcocer MD> Date Mar Alcocer MD Cosigner Signature (if applicable): Date CC: Alex Harry MD; Omar Bryant MD; Mar Alcocer MD Signed EMERGENCY DEPARTMENT Observed: 05/05/2017 Status: F Source: [place] SUMMARY 4:54 PM [facility] REPOSITORY [facility] Medical Records Department [address] [place] [address] Emergency Department Summary 05/05/17 0847 MR#: [id number] Acct: [id number] Name: GABY SCHUSTER Rep #: [id number] : 1945 72 From: Juan Mcdaniel MD PCP: Omar Bryant MD Status: ADM IN - ER Visit Summary Date of Service: 05/05/17 Chief Complaint: Passed out at home History of Present Illness: The patient is a 72 F past medical history of diabetes and hypertension. Patient was seen 2 days ago in the emergency department had a negative workup. Since she has been home she has had decreased oral intake. She has had some nausea and vomiting. No diarrhea. She was constipated and then has had bowel movements with some blood mixed with her stool. She denies any hematemesis. She denies any headache or chest pain. She denies being short of breath. No fever. No significant abdominal pain. No strokelike symptoms. Today she felt lightheaded and passed out. Thinks it was only brief episode. Called family who came over and brought her to the emergency department. She denies any injuries from the fall. Physical Examination: Older female initial blood pressure 69/45. Heart rate of 112. Afebrile. Pulse ox 95%. She is awake alert. She is answering questions. H EENT exam atraumatic. Pupils are round reactive light. Dry mucous membranes. Neck nontender no lymphadenopathy full range of motion. Lungs clear to auscultation bilaterally. Heart regular rhythm no murmur rate about 100. Chest wall nontender. Abdomen soft nontender. Normal bowel sounds. No peritoneal signs. No pulsatile mass. She is moving all 4 extremities. The neurovascular intact. She has 5 out of 5 purchasing clerk strength. Nontender no deformities in upper extremities with normal range of motion. She has normal dorsi plantarflexion of both lower extremities are neurovascularly intact with no deformities or tenderness. Normal range of motion. Back exam is nontender. Neurologically she is awake and alert without any focal motor deficits. Test Results: Seizures white count of 14.4 and H AND H of 7.9 and 23. 2 days ago her hemoglobin was 13 so she has had a significant blood loss. BMP shows a potassium of 3.1. BUN of 38 and a creatinine of 1. Dehydration and upper GI bleed. Troponin normal. EKG sinus rhythm rate of 92. And chest x-ray shows no acute abnormality. Lactate is elevated also. Emergency Department Course and Treatment: Reviewed the patient's ER evaluation 2 days ago labs, CAT scan x-ray they were basically unremarkable. Treatment Plan: Clinically and by labs the patient has an upper GI bleed. She has black stool on exam. She has been given IV fluids 2 L. She will be given Protonix IV. And she has been typed and crossed and will be transfused 2 units of packed red blood cells. I spoken both to Dr. Jose Hardin general surgery who is willing to do upper endoscopy on the patient. And also Dr. Wilson the hospitalist who admitted to the ICU. Both Dr. Wilson and myself had long discussions with the patient about admission versus transfer. Disposition: Admission Impression: Acute Syncope Acute GI bleed (upper GI bleed) Acute anemia requiring blood transfusion 2 units Acute hypotension History of diabetes This note was generated with [employer] software. It may contain incorrect words, spelling, and punctuation that were not noted in review of the chart prior to signing ED Disposition - Plan for ED Patient: Chief Complaint: Syncope Referrals: Omar Bryant MD [Primary Care Provider] - What to do if you have Problems For any increased pain, shortness of breath, bleeding, nausea or vomiting, chest pain, or any unexpected problems, contact your Primary Care Provider. Call [facility] ([phone]) or report to the closest Emergency Room. Call 911 if necessary. 05/05/17 1654 <Electronically signed by Juan Mcdaniel MD> Date Juan Mcdaniel MD Cosigner Signature (If Indicated): Date CC: Omar Bryant MD CBC W/DIFF, AUTOMATED Collected: 05/05/2017 Status: F Source: [place] 3:35 PM [facility] REPOSITORY TYPE CODE TESTS RESULT OUT OF RANGE REFERENCE UNITS LAB L100.1000 4.4-11.0 K/mm3 High WBC 11.5 LAB L100.1200 4.2-5.4 M/mm3 Low RBC 2.54 LAB L100.1300 12.0-15.0 g/dl Low HGB 7.7 LAB L100.1400 37-47 % Low HCT 22.3 LAB L100.1500 81-99 fL Normal MCV 87.8 LAB L100.1600 27.0-32.0 pg Normal MCH 30.3 LAB L100.1700 32-36 g/gl Normal MCHC 34.5 LAB L100.1810 11.6-14.6 % Normal RDW CV 13.6 LAB L100.1820 35.1-43.9 fl Normal RDW SD 43.5 LAB L100.1900 150-450 K/mm3 Normal PLT 174 LAB L100.2000 6.2-12.0 fl Normal MPV 10.5 LAB L100.2100 47-70 % Normal NEUT% 68.3 LAB L100.2200 19-41 % Normal LY% 20.7 LAB L100.2300 0-10 % High MONO% 10.6 LAB L100.2400 0-5 % Normal EO% 0.1 LAB L100.2500 0-1 % Normal BASO% 0.1 LAB L100.2550 0.0-0.9 % Normal IM GRAN % 0.200 Result Comment: IG% - Immature Granulocytes (promyelocytes, myelocytes and metamyelocytes) > 1% indicates that a LEFT SHIFT is Present. LAB L100.2620 2.0-7.7 X10 3/uL High Absolute Neut 7.9 LAB L100.2720 0.83-4.51 X10 3/ul Normal Absolute Lymph 2.38 Performed By: #### L100.0100 #### [facility] [address] [facility] [address] LACTIC ACID Collected: 05/05/2017 Status: F Source: [place] 1:00 PM [facility] REPOSITORY TYPE CODE TESTS RESULT OUT OF RANGE REFERENCE UNITS LAB L503.6005 0.4-2.0 mmol/L Normal LACTIC ACID 1.0 Performed By: #### L503.6005 #### [facility] [address] [facility] [address] BEDSIDE GLUCOSE Collected: 05/05/2017 Status: F Source: [place] 12:33 PM [facility] REPOSITORY TYPE CODE TESTS RESULT OUT OF REFERENCE UNITS RANGE LAB L501.080 70-110 mg/dL High BEDSIDE GLU 150 Result Comment: MANAGEMENT OF PATIENT CARE PER NURSING PROTOCOL Performed By: #### L501.080 #### [facility] Point of Care [address] [place] [address] VENOUS BLOOD GAS Collected: 05/05/2017 Status: F Source: [place] 11:22 AM [facility] REPOSITORY TYPE CODE TESTS RESULT OUT OF RANGE REFERENCE UNITS LAB L9000.9990 Normal BLD GAS TYPE JOANIE LAB L9001.1104 Normal Results To HOSP MD LAB L9001.1105 Normal Time Given 1121 LAB L9002.1110 7.32-7.42 Low VBGpH - 7.30 I-STAT LAB L9002.1212 41-51 mmHg Normal VBG pCO2 - 47.9 ISTA LAB L9002.1310 25-40 mmHg High VBG PO2 141 I-STAT LAB L9002.2300 22-26 mmol/L Normal VBG HCO3 23 ISTAT LAB L9002.2400 -1.0-3.5 mmol/L Low VBG BE ISTAT -3 LAB L9002.2410 50-70 % High VBG SO2 ISTAT 99 LAB L9002.2415 23-33 mmol/L Normal VBG O2 CT 25 ISTAT Performed By: #### L9000.0810 #### [facility] Point of Care [address]. [place], [place] [address] CBC W/DIFF, AUTOMATED Collected: 05/05/2017 Status: F Source: [place] 11:10 AM [facility] REPOSITORY TYPE CODE TESTS RESULT OUT OF RANGE REFERENCE UNITS LAB L100.1000 4.4-11.0 K/mm3 High WBC 12.9 LAB L100.1200 4.2-5.4 M/mm3 Low RBC 2.27 LAB L100.1300 12.0-15.0 g/dl Low HGB 7.1 LAB L100.1400 37-47 % Low HCT 20.5 LAB L100.1500 81-99 fL Normal MCV 90.3 LAB L100.1600 27.0-32.0 pg Normal MCH 31.3 LAB L100.1700 32-36 g/gl Normal MCHC 34.6 LAB L100.1810 11.6-14.6 % Normal RDW CV 12.7 LAB L100.1820 35.1-43.9 fl Normal RDW SD 39.1 LAB L100.1900 150-450 K/mm3 Normal PLT 187 LAB L100.2000 6.2-12.0 fl Normal MPV 10.8 LAB L100.2100 47-70 % High NEUT% 81.8 LAB L100.2200 19-41 % Low LY% 10.2 LAB L100.2300 0-10 % Normal MONO% 7.4 LAB L100.2400 0-5 % Normal EO% 0.2 LAB L100.2500 0-1 % Normal BASO% 0.1 LAB L100.2550 0.0-0.9 % Normal IM GRAN % 0.300 Result Comment: IG% - Immature Granulocytes (promyelocytes, myelocytes and metamyelocytes) > 1% indicates that a LEFT SHIFT is Present. LAB L100.2620 2.0-7.7 X10 3/uL High Absolute Neut 10.5 LAB L100.2720 0.83-4.51 X10 3/ul Normal Absolute Lymph 1.31 Performed By: #### L100.0100 #### [facility] [address] [place], [address] M R STAPH AUREUS Collected: 05/05/2017 Status: F Source: [place] DNA BY PCR 11:[address] [facility] TYPE CODE TESTS RESULT OUT OF RANGE REFERENCE UNITS LAB L8200.1100 Negative Normal MRSA Negative RESULT Performed By: #### L8200.1000 #### [facility] [address] [place], [address] HISTORY AND PHYSICAL Observed: 05/05/2017 Status: F Source: [place] EXAM 10:24 AM [facility] REPOSITORY [facility] Medical Records Department [address] [place] [address] History and Physical 05/05/17 1014 MR#: [id number] Acct: [id number] Name: GABY SCHUSTER Rep #: [id number] : 1945 72 From: Cornell Wilson DO PCP: Omar Bryant MD Status: ADM IN Y Location: ICU ICU02-1 Problem List (1) Upper GI bleed Status: Acute (2) Acute blood loss anemia Status: Acute (3) HTN (hypertension) Status: Chronic (4) Hyperlipidemia Status: Chronic (5) DM2 (diabetes mellitus, type 2) Status: Chronic (6) Hemorrhagic shock Status: Acute (7) Syncope Status: Acute History of Present Illness Date of Admission: 05/05/17 Chief Complaint: melena The patient is a 72 year old F who has not been feeling well for the past few weeks. Patient is been having vomiting during this time. Presented to the emergency room on the 6 where she had a CAT scan of her abdomen pelvis that showed no acute process. Patient in hemoglobin at that time that was 10.4. Patient was not having any hematochezia nor melena. Over the past days since then patient has been having donte melena patient noted some blood-tinged in the bowl and patient did have a syncopal episode upon standing. Patient presented to the emergency room and hemoglobin is now 7.9, patient was hypotensive with pressure of 69/45 and patient had a lactic acid of 2.3. Patient denies any history of melena or GI bleed before. Patient denies any hematemesis nor any other bleeding diatheses. No bruising problems. Patient states that she does take 2 Naprosyn during the day and then Advil PM at night. Dr. Sutton, of general surgery was contacted through the emergency room and said they would be happy to see the patient on consultation and plan is for an EGD on the . [] Past Medical History Past Medical History (Chronic Problems): Chronic Problems HTN (hypertension) (Chronic) Hyperlipidemia (Chronic) DM2 (diabetes mellitus, type 2) (Chronic) Allergies No Known Allergies Allergy (Verified 05/05/17 08:28) Home Medications: Ambulatory Orders Medication Instructions Recorded Atenolol [Tenormin (Beta Denia)] 50 mg PO DAILY 05/03/17 Psychiatric History: No pertinent psych hx Smoking Status: Light Smoker (<10/day) Tobacco Use: Cigarettes Alcohol: None Drugs: None - *Family History Maternal History Items: - - No coronary artery disease Review of Systems Constitutional: Denies: Chills, Fever, Weight Change Eyes: Denies: Blurred vision, Double vision HEENT: Denies: Head Aches, Sinus Congestion, Sinus Drainage Cardiovascular: Denies: Chest Pain, Palpitations Respiratory: Denies: Cough, Shortness of breath at rest, Sputum production Gastrointestinal: Reports: Nausea, Melena, Vomiting. Denies: Abdominal Pain Genitourinary: Denies: Dysuria, Hematuria Musculoskeletal: Denies: Joint Pain, Joint Tenderness Skin: Denies: Rash, Wounds Neurological: Reports: - - Syncope. Denies: Focal weakness, Numbness, Tingling Psychiatric: Denies: Anxiety, Depression Endocrine: Denies: Change in Body Habitus, Heat/ Cold Intolerance Hematologic/ Lymphatic: Denies: Easy Bruising, Easy Bleeding, Hx of blood clot VTE Information - Inpt Only VTE Present on Admission: No VTE Mechan Device Prophylaxis: SCD's VTE Pharm Prophylaxis ordered?: No Reason prophylaxis not ordered:: Medical Contraindication Patient Problems: Active and Suspected Problems Upper GI bleed (Acute) Acute blood loss anemia (Acute) Hemorrhagic shock (Acute) Syncope (Acute) - Physical Exam General: Alert, Cooperative, No apparent distress HEENT: Atraumatic, Normocephalic Oral: Moist Mucosa, No Gingival or Mucosal Lesions/ Ulcerations Neck: No Nodes, Thyroid Normal Size and Texture Lungs: Clear to auscultation, Normal air movement, No rhonchi, No wheeze Cardiovascular: Regular rate, Regular Rhythm, Normal S1, Normal S2, No murmurs Abdomen: Bowel Sounds Present, Soft, Non Tender, Non-Distended, No Hepato-splenomegaly, Passing Flatus Extremities: No clubbing, No cyanosis, No edema, No Calf Tenderness Skin: No rashes, No breakdown Musculoskeletal: No Tenderness to Palpation of Joints or Extremities, No Muscle Wasting Neurological: Neuro grossly intact, Sensory exam intact to light touch and pain, Coordination normal Psych/Mental Status: Normal Affect, Appropriate Vital Signs Temp Pulse Resp BP Pulse Ox 36.4 C L 91 19 H 92/59 L 100 05/05/17 08:28 05/05/17 09:38 05/05/17 09:38 05/05/17 09:38 05/05/17 09:38 Oxygen Flow Rate (L/min) 2 Oxygen Delivery Method Nasal Cannula Weight: 77.111 kg Body Mass Index (BMI) 31.1 Laboratory Tests Past 24 Hrs WBC 14.4 H RBC 2.60 L Hgb 7.9 L Hct 23.0 L MCV 88.5 MCH 30.4 MCHC 34.3 RDW 13.2 RDW Differential 42.7 WBC RBC Assessment/Plan Active and Suspected Problems Upper GI bleed (Acute) Acute blood loss anemia (Acute) Hemorrhagic shock (Acute) Syncope (Acute) 1. Suspected upper GI bleed * My suspicion is that may be a Kyleigh-Haynes tear the patient's recent vomiting but also could be peptic ulcer disease given the patient's utilization of 2 different NSAIDs. * Protonix IV discussed with Dr. Sutton, plan is for EGD on the but may have to expedite that patient has active bleeding. * I informed the patient and her family that I suspect is upper GI bleed but I cannot rule out a lower bleed though I do not feel that her diverticulosis is causing bleeding given that it is melena. I explained to him that that if something would happen the middle night the possible specialist may not be of be there as readily as it would add some other institutions and if it was a lower GI bleed we do not have the capacity to embolization of bleeding vessels. They stated that they are satisfied with staying here at this time. 2. Acute blood loss anemia * Secondary to above * Follow-up hemoglobins. Patient has been typed and crossed in the emergency room. 3. Hemorrhagic shock * Patient did receive IV fluids in the emergency room which has improved her blood pressure * Lactic acidosis is due to the shock * Continue with IV fluids and monitor. * Patient will be admitted to the ICU 4. DVT prophylaxis with SCDs. Prophylaxis is contraindicated in light of the acute blood loss anemia. Code Visit Inpatient E AND M: 07747 Init Hosp L3 05/05/17 1024 <Electronically signed by Cornell Wilson DO> Date Cornell Wilson DO Cosigner Signature: Date (if applicable) CC: Cornell Wilson DO; Omar Bryant MD Signed CHEST 1 VIEW Observed: 05/05/2017 Status: F Source: [place] (PORTABLE) 8:43 AM [facility] REPOSITORY [facility] Imaging Services [address] [place] [address] Chest 1 View (Portable) MR#: [id number] Acct: [id number] Name: GABY SCHUSTER Rep #: [id number] : 1945 F 72 From: Maximiliano Norris MD PCP: Omar Bryant MD Status: REG ER Study: Chest 1 View (Portable) Date of Exam: 05/05/17 Exam# [id number] Ordering Dr: Juan Mcdaniel MD STUDY: X-RAY CHEST REASON FOR EXAM: Female, 72 years old. Syncopal episode. Hypotension. TECHNIQUE: Single AP portable view of the chest. COMPARISON: Comparison is made with prior study dated May 03, 2017. FINDINGS: EKG electrodes are seen. Hyperinflation. Scattered calcified granulomas. There is no demonstrated pleural abnormality. Normal size heart. Normal mediastinum and sangeeta. Normal visualized pulmonary arteries. Normal visualized aortic arch and descending thoracic aorta. There are diffuse degenerative changes of the visualized thoracic spine. Normal visualized ribs, clavicles, and shoulders. There is no demonstrated abnormality of the visualized soft tissue structures of the upper abdomen. RAD/Chest 1 View (Portable) IMPRESSION: Hyperinflation. Electronically Signed: Maximiliano Norris MD at 9:08 EST Tel [phone], Service support , CC: Juan Mcdaniel MD; Omar Bryant MD Import Dispatcher: Signed CBC W/DIFF, AUTOMATED Collected: 05/05/2017 Status: C Source: [place] 8:40 AM [facility] REPOSITORY TYPE CODE TESTS RESULT OUT OF RANGE REFERENCE UNITS LAB L100.1000 4.4-11.0 K/mm3 High WBC 14.4 LAB L100.1200 4.2-5.4 M/mm3 Low RBC 2.60 LAB L100.1300 12.0-15.0 g/dl Low HGB 7.9 LAB L100.1400 37-47 % Low HCT 23.0 LAB L100.1500 81-99 fL Normal MCV 88.5 LAB L100.1600 27.0-32.0 pg Normal MCH 30.4 LAB L100.1700 32-36 g/gl Normal MCHC 34.3 LAB L100.1810 11.6-14.6 % Normal RDW CV 13.2 LAB L100.1820 35.1-43.9 fl Normal RDW SD 42.7 LAB L100.1900 150-450 K/mm3 Normal PLT 228 LAB L100.2000 6.2-12.0 fl Normal MPV 10.7 LAB L100.2100 47-70 % Normal NEUT% 66.9 LAB L100.2200 19-41 % Normal LY% 19.9 LAB L100.2300 0-10 % High MONO% 12.5 LAB L100.2400 0-5 % Normal EO% 0.3 LAB L100.2500 0-1 % Normal BASO% 0.1 LAB L100.2550 0.0-0.9 % Normal IM GRAN % 0.300 Result Comment: IG% - Immature Granulocytes (promyelocytes, myelocytes and metamyelocytes) > 1% indicates that a LEFT SHIFT is Present. LAB L100.2620 2.0-7.7 X10 3/uL High Absolute Neut 9.6 LAB L100.2720 0.83-4.51 X10 3/ul Normal Absolute Lymph 2.86 LAB L100.4500 Normal SMEAR COMMENT COMMENT Result Comment: SLIDE SCANNED - MONOCYTOSIS NOTED. LAB L100.9900 Normal Reviewed PATH REV Result Comment: Leukocytosis. Normocytic anemia. Clinical correlation necessary. Dave Rock M.D. 05/06/17 AMENDED REPORT 05/06/17 1245 PATH REV previously reported as: June Performed By: #### L100.0100 #### [facility] [place], [address] BASIC METABOLIC Collected: 05/05/2017 Status: F Source: [place] PROFILE (BMP) 8:40 AM [facility] REPOSITORY Order Comment: 'TROP' Serial specimen #1, #2, #3, or #4: 1 TYPE CODE TESTS RESULT OUT OF RANGE REFERENCE UNITS LAB L501.0100 74-106 mg/dL High GLU 239 Result Comment: Glucose result greater than or equal to 200 mg/dL suggests DIABETES MELLITUS per A.D.A. criteria. Please note revised GLUCOSE reference range effective 2017. LAB L501.1000 7-18 mg/dL High BUN 38 LAB L501.1100 0.55-1.02 mg/dL High CREAT,SERUM 1.03 Result Comment: The validity of the calculated GFR AND GFRAA in patients over 70 years has not been determined. Clinical correlation is essential. LAB L501.1110 >60 mL/min Low EST GFR 56 Result Comment: Non- GFR Calc LAB L501.1115 >60 mL/min Normal EST GFR - AA 68 Result Comment: GFR Calc LAB L501.1255 ml/min Normal Estimated CRCL 39.62 LAB L501.1300 10-20 RATIO High BUN/CRE 36.9 LAB L501.2200 8.5-10 mg/dL Low .1 CA 7.8 LAB L501.5300 136-14 mmol/L Normal 5 NA 139 LAB L501.5600 3.5-5. mmol/L Low 1 K 3.1 LAB L501.5900 98-107 mmol/L Normal CL 104 LAB L501.6100 21.0-3 mmol/L Normal 2.0 CO2 23.0 LAB L501.6200 5-15 Normal GAP 12 Performed By: #### L500.2500, L501.4010 #### [facility] [address] [facility]. [place], [place], [address] TROPONIN-I Collected: 05/05/2017 Status: F Source: [place] 8:40 AM [facility] REPOSITORY Order Comment: 'TROP' Serial specimen #1, #2, #3, or #4: 1 TYPE CODE TESTS RESULT OUT OF RANGE REFERENCE UNITS LAB L501.4010 <0.06 ng/mL Normal < 0.02 TROPONIN-I Result Comment: TROPONIN-I EXPECTED VALUES <0.05 NEGATIVE 0.06 - 0.59 AT RISK OF GA > OR = 0.60 SUGGEST GA Performed By: #### L500.2500, L501.4010 #### [facility] [address] [facility]. [place], [place], [address] LACTIC ACID Collected: 05/05/2017 Status: F Source: [place] 8:40 AM [facility] REPOSITORY Order Comment: Yes/No query for Sepsis Lactate Rule Y TYPE CODE TESTS RESULT OUT OF REFERENCE UNITS RANGE LAB L503.6005 0.4-2.0 mmol/L High LACTIC ACID 3.3 Result Comment: Critical Result(s) Called at: 09:25:03 05/05/2017 by: jossy carbajal rn (ED) Performed By: #### L503.6005 #### [facility] [address] [place], [address] PROTHROMBIN TIME W/INR Collected: 05/05/2017 Status: F Source: [place] 8:40 AM [facility] REPOSITORY TYPE CODE TESTS RESULT OUT OF RANGE REFERENCE UNITS LAB L300.4150 11.7-14.9 SECONDS High PROTIME 15.5 LAB L300.4200 Normal INR 1.2 Performed By: #### L300.3900 #### [facility] [address] [facility] [place], [address] TYPE AND SCREEN Collected: 05/05/2017 Status: F Source: [place] 8:35 AM [facility] REPOSITORY Order Comment: Has pt arrived? Y CMV NEG? N Number of units to transfuse: 0 Is this product for anemia associated with hemoglobinopathy? N Is there a >20% drop in pt's BP? Y Is the pt's CVP (central venous pressure) <3 cm/H2O? N Is the EBL >/= 1000ml in adults or >/= 12ml/kg in children? Y Is pt's Hgb is </= to 7.0 mg/dl or Hct </= 21%? N Is there an orthostatic change in BP (SBP drop > 10mmHg)? Y Is there an orthostatic change in pt's BP(SBP drop >10mmHg)? Y Is this for PREOP anemia correction prior to anesthesia? N Is pt's HR > 100 bpm? Y Reason for Ordering Blood: Acute Is there symptomatic anemia? Y Are the blood/blood products to be transfused? Y Is the patient having/had surgery? N Give When? Type AND Hold Irradiated? N Leukodepleted? Y Reason for Type AND Screen/Red Cells: HEMORRHAGE, GI BLEED TYPE CODE TESTS RESULT OUT OF RANGE REFERENCE UNITS LAB B10.0800 A Normal BLOOD TYPE GEL NEGATIVE LAB B100.4000 Normal Antibody NEGATIVE Screen Performed By: #### B101.7450 #### [facility] [address] [place], [place], [address] RC Collected: 05/05/2017 Status: F Source: [place] 8:35 AM [facility] REPOSITORY TYPE CODE TESTS RESULT OUT OF REFERENCE UNITS RANGE LAB U100.0000 [id number] TRANSFUSED PRODUCT: T AND S with Crossmatch, Red Cells COUNT: 2 Performed By: #### U100.0000 #### [facility] - refer to report for specific site RC Collected: 05/05/2017 Status: F Source: [place] 8:35 AM [facility] REPOSITORY TYPE CODE TESTS RESULT OUT OF REFERENCE UNITS RANGE LAB U100.0000 [id number] TRANSFUSED PRODUCT: T AND S with Crossmatch, Red Cells COUNT: 2 Performed By: #### U100.0000 #### [facility] - refer to report for specific site RC Collected: 05/05/2017 Status: F Source: [place] 8:35 AM [facility] REPOSITORY TYPE CODE TESTS RESULT OUT OF REFERENCE UNITS RANGE LAB U100.0000 [id number] TRANSFUSED PRODUCT: T AND S with Crossmatch, Red Cells COUNT: 1 Performed By: #### U100.0000 #### [facility] - refer to report for specific site EMERGENCY DEPARTMENT Observed: 05/03/2017 Status: F Source: [place] SUMMARY 5:23 PM [facility] REPOSITORY [facility] Medical Records Department [address] [place] [address] Emergency Department Summary 05/03/17 0832 MR#: [id number] Acct: [id number] Name: GABY SCHUSTER Rep #: [id number] : 1945 72 From: Dawna Veras MD PCP: Omar Bryant MD Status: DEP ER - ER Visit Summary Date of Service: 05/03/17 Chief Complaint: [] Vomiting since starting metformin in January History of Present Illness: The patient is a 72 F [] history of diabetes hypertension anxiety back surgery in February. She indicates she basically was started on metformin in January when up to what sounds like 1500 mg's a day she experienced almost immediate sense of vomiting reflux she felt was intolerance to metformin. Her doctor stopped metformin start her on Januvia, she had some was some of the Januvia that was stopped. Then they told her to start the metformin again but at a lower dose she did that and she indicates she has persistent sense of reflux and vomiting she indicates her physicians are not willing to readjust her meds. She has had normal bowel bladder habits. She has no history of GA PE DVT and history of GI elements hepatobiliary dysfunction. Her blood sugars are generally in the appropriate range she has no other past history. She presents because of the persistence of the symptoms Physical Examination: [] Vital signs are unremarkable she is resting comfortably in the bed head neck unremarkable lungs are clear heart tones are normal the abdomen soft nontender upper lower extremities unremarkable neurologically awake moving all 4 Test Results: [] Emergency Department Course and Treatment: [] She has never had a colonoscopy EGD or any type of a GI workup for all the above given her complaints screening labs and studies are obtained IV fluids Zofran Patient studies are all generally unremarkable see those reports potassium was slightly low at 3.0 she was given oral supplements without difficulty IV fluids screening labs generally unremarkable otherwise, CT of the abdomen showed considerable residual fecal material nothing acute see that report There is no signs of DKA her blood sugars about 200 she did stop the metformin about 2 or 3 days ago Conversation with her and her family the patient is indicating that she wants a referral to a new primary care physician as the current position she is seeing she feels is not paying attention to her symptoms and her concerns. At this time she is convinced that the metformin is causing some of her symptoms I explained her there may be other underlying causes if she wants to stop the metformin she should monitor her blood sugar daily, take at least a small dose of metformin if the blood sugar is very high contact her physicians or return to the emergency department should her symptoms change or intensify, in addition she is referred to the diabetic nurse practitioner in the area, and the [place] on-call primary care service , she will consider using high-fiber food prune-juice MiraLAX for the CT finding of considerable fecal material, I further explained her she may require more definitive GI management given all of her complaints and she will pursue that through the new primary care physician she is referred to and does not want a GI referral right now Treatment Plan: [] Disposition: [] Stable home Impression: [] Nausea and vomiting, concern for intolerance to metformin This note was generated with [employer] dictation software. It may contain incorrect words, spelling, and punctuation that were not noted in review of the chart prior to signing ED Disposition - Plan for ED Patient: Chief Complaint: General Illness Referrals: Omar Bryant MD [Primary Care Provider] - What to do if you have Problems For any increased pain, shortness of breath, bleeding, nausea or vomiting, chest pain, or any unexpected problems, contact your Primary Care Provider. Call [facility] ([phone]) or report to the closest Emergency Room. Call 911 if necessary. 05/03/17 1723 <Electronically signed by Dawna Veras MD> Date Dawna Veras MD Cosigner Signature (If Indicated): Date CC: Omar Bryant MD DISCHARGE INSTRUCTION Observed: 05/03/2017 Status: F Source: [place] 11:13 AM [facility] Medical Records Department [address] [place] [address] Discharge Instruction 05/03/17 1110 MR#: [id number] Acct: [id number] Name: GABY SCHUSTER Rep #: [id number] : 1945 72 From: Dawna Veras MD PCP: Omar Bryant MD Status: REG ER ED Disposition - Plan for ED Patient: Chief Complaint: General Illness Instructions: ED Diet Vomiting Diarrhea, Abdominal Pain Prescriptions: Ondansetron [Zofran Odt] 4 mg PO Q8H PRN PRN #10 tab PRN Reason: Nausea Referrals: Omar Bryant MD [Primary Care Provider] - Jacey Arcos MD [[facility] STAFF PHYSICIAN] - Kendra Granger NP-C [Nurse Practitioner] - What to do if you have Problems For any increased pain, shortness of breath, bleeding, nausea or vomiting, chest pain, or any unexpected problems, contact your Primary Care Provider. Call [facility] ([phone]) or report to the closest Emergency Room. Call 911 if necessary. 05/03/17 1113 <Electronically signed by Dawna Veras MD> Date Dawna Mattignyvette Signature (If Indicated): Date CC: Omar Bryant MD URINALYSIS, COMPLETE Collected: 05/03/2017 Status: F Source: RITIKA 9:40 AM [facility] REPOSITORY Order Comment: Order Date: 05/03/17 How was Urine Obtained? CLEAN CATCH TYPE CODE TESTS RESULT OUT OF RANGE REFERENCE UNITS LAB L400.3000 Yellow COLOR Normal Yellow LAB L400.3050 Clear Normal CLARITY Clear LAB L400.3200 Normal mg/dl Normal GLUCOSE, UR Normal LAB L400.3300 Negative mg/dL Normal BILIRUBIN URINE Negative LAB L400.3400 Negative mg/dl High 15 KETONE UR LAB L400.3465 1.002-1.030 Normal SP.GR. DIPSTX 1.005 LAB L400.3550 5.0 - 8.0 pH UR Normal 7.0 LAB L400.3600 Negative mg/dl PROT Normal DIPSTX Negative LAB L400.3700 Normal mg/dl Normal UROBILI Normal LAB L400.3750 Negative Normal NITRITE UR Negative LAB L400.3780 Negative /ul Normal OCCULT BLOOD-UR Negative LAB L400.3800 Negative /ul LEUK Normal ESTERASE Negative LAB L400.4050 0-5 /hpf WBC 0 Normal SEEN LAB L400.4100 0-5 /hpf 0 Normal RBC-UA SEEN LAB L400.4150 5-10 /hpf SQUAM 0 Normal EPI SEEN LAB L400.4300 None Seen /hpf Normal BACTERIA RARE LAB L400.4350 <or=2+ /hpf 0 Normal MUCUS, URINE SEEN Performed By: #### L400.0001 #### [facility] [address] [facility] [place], [place], [id number] ABDOMEN/PELVIS WITHOUT Observed: 05/03/2017 Status: F Source: RITIKA CONT 8:38 AM [facility] REPOSITORY [facility] Imaging Services [address] [place] [address] Abdomen/Pelvis without Cont MR#: [id number] Acct: [id number] Name: GABY SCHUSTER Rep #: [id number] : 1945 F 72 From: Maximiliano Norris MD PCP: Omar Bryant MD Status: REG ER Study: Abdomen/Pelvis without Cont Date of Exam: 05/03/17 Exam# [id number] Ordering Dr: Dawna Veras MD STUDY: CT ABDOMEN AND PELVIS WITHOUT CONTRAST REASON FOR EXAM: Female, 72 years old. Nausea and diaphoresis. Difficulty urinating. RADIATION DOSAGE (If Supplied By Facility): CTDIvol = ( 11.02 ) mGy, DLP = ( 506.60 ) mGycm TECHNIQUE: Transaxial images were obtained from the dome of the diaphragm to the symphysis pubis without oral contrast, and without intravenous contrast. Sagittal and coronal images were reconstructed. Individualized dose optimization techniques were used for this CT. COMPARISON: None. FINDINGS: The visualized lung bases are unremarkable. Minimal anterior pericardial thickening. Coronary artery calcification. Normal liver. Normal gallbladder and extrahepatic biliary system. Normal spleen. 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 Normal pancreas. There is a small, circumscribed, smooth, low attenuation left adrenal mass, consistent with an adrenal adenoma. It measures 2.9 sinus by 1.5 cm. Normal right adrenal gland. Normal right kidney. Normal left kidney. Normal visualized stomach. Normal small intestine. There are multiple colonic diverticula consistent with diverticulosis. Moderate amount of fecal material is seen in the colon. The appendix is visualized and appears normal. There is diffuse atherosclerotic calcification of the abdominal aorta and its major visceral branches, without a demonstrated aneurysm. Normal inferior vena cava. Normal retroperitoneum. Normal urinary bladder. Normal abdominal wall. There are diffuse degenerative changes of the visualized lumbar spine. The patient is status post L4-L5 laminectomy and interpedicular screw fixation. CT/Abdomen/Pelvis without Cont IMPRESSION: Minimal anterior pericardial thickening. Sigmoid diverticulosis. Moderate amount of fecal material is seen in the colon. Electronically Signed: Maximiliano Norris MD at 9:39 EST Tel [phone], Service support , CC: MD Jabari Veras; Omar Bryant MD Import Dispatcher: Signed CBC W/DIFF, AUTOMATED Collected: 05/03/2017 Status: F Source: R[place]A 8:35 AM [facility] REPOSITORY TYPE CODE TESTS RESULT OUT OF RANGE REFERENCE UNITS LAB L100.1000 4.4-11.0 K/mm3 Normal WBC 10.6 LAB L100.1200 4.2-5.4 M/mm3 Normal RBC 4.31 LAB L100.1300 12.0-15.0 g/dl Normal HGB 13.4 LAB L100.1400 37-47 % Normal HCT 37.7 LAB L100.1500 81-99 fL Normal MCV 87.5 LAB L100.1600 27.0-32.0 pg Normal MCH 31.1 LAB L100.1700 32-36 g/gl Normal MCHC 35.5 LAB L100.1810 11.6-14.6 % Normal RDW CV 12.6 LAB L100.1820 35.1-43.9 fl Normal RDW SD 39.4 LAB L100.1900 150-450 K/mm3 Normal PLT 267 LAB L100.2000 6.2-12.0 fl Normal MPV 10.4 LAB L100.2100 47-70 % High NEUT% 74.9 LAB L100.2200 19-41 % Low LY% 15.6 LAB L100.2300 0-10 % Normal MONO% 8.9 LAB L100.2400 0-5 % Normal EO% 0.2 LAB L100.2500 0-1 % Normal BASO% 0.2 LAB L100.2550 0.0-0.9 % Normal IM GRAN % 0.200 Result Comment: IG% - Immature Granulocytes (promyelocytes, myelocytes and metamyelocytes) > 1% indicates that a LEFT SHIFT is Present. LAB L100.2620 2.0-7.7 X10 3/uL High Absolute Neut 8.0 LAB L100.2720 0.83-4.51 X10 3/ul Normal Absolute Lymph 1.66 Performed By: #### L100.0100 #### [facility] [address] [place], [place], [id number] BASIC METABOLIC Collected: 05/03/2017 Status: F Source: R[place]A PROFILE (BMP) 8:35 AM [facility] REPOSITORY TYPE CODE TESTS RESULT OUT OF RANGE REFERENCE UNITS LAB L501.0100 74-106 mg/dL High GLU 190 Result Comment: Fasting Glucose result greater than or equal to 126 mg/dL suggests DIABETES MELLITUS per A.D.A. criteria. Please note revised GLUCOSE reference range effective 2017. LAB L501.1000 7-18 mg/dL High BUN 21 LAB L501.1100 0.55-1.02 mg/dL Normal CREAT,SERUM 0.81 Result Comment: The validity of the calculated GFR AND GFRAA in patients over 70 years has not been determined. Clinical correlation is essential. LAB L501.1110 >60 mL/min Normal EST GFR 74 Result Comment: Non- GFR Calc LAB L501.1115 >60 mL/min Normal EST GFR - AA 89 Result Comment: GFR Calc LAB L501.1255 ml/min Normal Estimated CRCL 50.38 LAB L501.1300 10-20 RATIO High BUN/CRE 25.8 LAB L501.2200 8.5-10 mg/dL Low .1 CA 8.4 LAB L501.5300 136-14 mmol/L Normal 5 NA 136 LAB L501.5600 3.5-5. mmol/L Low 1 K 3.0 LAB L501.5900 98-107 mmol/L Normal CL 100 LAB L501.6100 21.0-3 mmol/L Normal 2.0 CO2 25.0 LAB L501.6200 5-15 Normal GAP 11 Performed By: #### L500.2500, L500.3400, L501.2450 #### [facility] [address] [place], [place], [id number] LIVER PROFILE Collected: 05/03/2017 Status: F Source: [place] 8:35 AM [facility] REPOSITORY TYPE CODE TESTS RESULT OUT OF RANGE REFERENCE UNITS LAB L501.1500 6.4-8.2 g/dL Normal T PROT 7.3 LAB L501.1800 3.2-5.0 g/dL Normal ALB 3.5 LAB L501.1950 2.2-4.2 g/dL Normal GLOB 3.8 LAB L501.4100 15-37 U/L Low AST 10 LAB L501.4305 45-117 U/L Low ALK P 33 LAB L501.4405 13-56 U/L Normal ALT 14 Result Comment: Please note revised ALT reference range effective 2017. LAB L501.4600 0.20-1.00 mg/dL Normal T BILI 0.50 LAB L501.4700 0.00-0.30 mg/dL Normal D BILI 0.13 Performed By: #### L500.2500, L500.3400, L501.2450 #### [facility] [address] [place], [address] LIPASE Collected: 05/03/2017 Status: F Source: [place] 8:35 AM [facility] REPOSITORY TYPE CODE TESTS RESULT OUT OF RANGE REFERENCE UNITS LAB L501.2450 73-393 U/L Normal LIPASE 160 Performed By: #### L500.2500, L500.3400, L501.2450 #### [facility] [address] [place], [address] CHEST 1 VIEW Observed: 05/03/2017 Status: F Source: [place] (PORTABLE) 8:21 AM [facility] REPOSITORY [facility] Imaging Services [address] [place] [address] Chest 1 View (Portable) MR#: [id number] Acct: [id number] Name: GABY SCHUSTER Rep #: [id number] : 1945 F 72 From: Maximiliano Norris MD PCP: Omar Bryant MD Status: REG ER Study: Chest 1 View (Portable) Date of Exam: 05/03/17 Exam# [id number] Ordering Dr: Dawna Veras MD STUDY: X-RAY CHEST REASON FOR EXAM: Female, 72 years old. Nausea and diaphoresis. TECHNIQUE: Single AP portable view of the chest. COMPARISON: None. FINDINGS: Hyperinflation. There is no demonstrated pleural abnormality. Normal size heart. Normal mediastinum and sangeeta. Normal visualized pulmonary arteries. Normal visualized aortic arch and descending thoracic aorta. There are diffuse degenerative changes of the visualized thoracic spine. Normal visualized ribs, clavicles, and shoulders. There is no demonstrated abnormality of the visualized soft tissue structures of the upper abdomen. RAD/Chest 1 View (Portable) IMPRESSION: Hyperinflation. Electronically Signed: Maximiliano Norris MD at 9:00 EST Tel [phone], Service support , CC: MD Jabari Veras; Omar Bryant MD Import Dispatcher: Signed ALLERGIES ALLERGIES DATE TYPE / CODE NAME / CODE REACTION SEVERITY SOURCE 10/24/2017 Drug GGOULON-QXM-LLT OTHER: SEE C [facility] Class/08453 REDUCTASE Main [place] 1003(SNOMED INHIBITORS Repository CT) 09/20/2017 Drug Hqemxes-Vbh-Hlh Unknown SV [place] Allergy/416 [facility] 893888(SNOM Inhibitor/I277861 Hospital ED CT) 095(RXNORM) Repository 05/05/2017 Drug No Known Unknown [place] Allergy/416 Allergies/U833574 [facility] 796337(SNOM 388(RXNORM) Hospital ED CT) Repository ENCOUNTERS ENCOUNTERS ADMIT/DISCHARGE ACCOUNT NUMBER ADMITTING ENCOUNTER LOCATION SOURCE CLASS 02/07/2018 [id number] [facility] ding:MRI Repository 11/24/2017/11/25/[id number] Repository 11/08/2017/11/09/19 [id number] [place], [address] Repository 10/24/2017/10/26/[id number] Repository 09/20/2017 [id number] [facility] ding:LAB Repository 09/20/2017/09/21/19 [id number] Ambulatory BMSBuilding: [place]ika 18 [facility] Repository 08/04/2017 [id number] Ambulatory [facility] ding:DC Repository 06/20/2017/06/21/19 [id number] Ambulatory BMSBuilding: [place] 18 [facility] Repository 05/23/2017 [id number] Ambulatory [facility] ding:LAB Repository 05/23/2017/05/24/19 [id number] Ambulatory BMSBuilding: [place] 18 [facility] Repository 05/06/2017 [id number] Inpatient [address] [place] [address] Encounter 7ERoom: System [id number]: Repository [id number] 05/06/2017/05/07/19 [id number] Ambulatory BMSBuilding: [place] [facility] Repository 05/05/2017/05/07/19 [id number] Katie, Inpatient [place] [address] [facility] Encounter [facility] ding:ICURoom Repository : PRK19Dzm: 1 05/05/2017 [id number] Katie Ambulatory BMSBuilding: [place] [facility] BMS.Replaced by [facility] Repository 05/05/2017 [id number] Katie Ambulatory BMSBuilding: [place] [facility] BMS.Replaced by [facility] Repository 05/05/2017/05/07/19 [id number] Ambulatory BMSBuilding: [place] [facility] Repository 05/03/2017/05/04/19 [id number] Emergency [place] ding:ED Repository 04/28/2017/05/29/19 [id number] Ambulatory [address] ding:DC Repository 04/20/2017/04/27/19 [id number] Ambulatory [address] ding:DC Repository PAYERS PAYERS ENCOUNTER GUARANTOR PAYER SUBSCRIBER SOURCE 02/07/2018 GABY Gonzalez Primary GABY Gonzalez [id number] Insurance:MEDICARE CHAMBERLINDOB: [facility] A [facility] [id number] Number: Repository 318[address]Cyy: 330 [id number] (HP) Date:2018-01-26 02/07/2018 Secondary GABY L [place] Insurance:MEDICAL CHAMBERLINDOB: [facility] [id number] Hospital Number: Repository [id number] Date:3363-83-14KB[address] [address]PE: 02/07/2018 Tertiary NOT GIVENUNK [place] Insurance:SELF PAY [facility] Number: Effective Repository Date:2018-01-26 09/20/2017 GABY L Primary GABY L [place] [id number] Insurance:MEDICARE CHAMBERLINDOB: [facility] [id number] Number: Repository [address]Iqz: 330 [id number] (HP) Date:2017-09-20 09/20/2017 Secondary GABY L [place] Insurance:MEDICAL CHAMBERLINDOB: [facility] [id number] Hospital Number: Repository [id number] Date:1322-27-09IN[address] [address]QJ: 09/20/2017 Tertiary NOT GIVENUNK [place] Insurance:SELF PAY [facility] Number: Effective Repository Date:2017-09-20 09/20/2017 GABY L Primary GABY L [place] [id number] Insurance:MEDICARE CHAMBERLINDOB: [facility] [id number], [place] Number: Repository [address]Sdo: 330 [id number] (HP) Date:2017-06-20 09/20/2017 Secondary GABY L [place] Insurance:MEDICAL CHAMBERLINDOB: [facility] [id number] Hospital Number: Repository [id number] Date:1975-01-06KW[address] [address]FQ: 09/20/2017 Tertiary NOT GIVENUNK [place] Insurance:SELF PAY [facility] Number: Effective Repository Date:2017-09-20 08/04/2017 GABY L Primary GABY L [place] [id number] Insurance:MEDICARE CHAMBERLINDOB: [facility] [id number], [place] Number: Repository [address]Zrj: 330 [id number] (HP) Date:2017-02-15 08/04/2017 Secondary GABY L [place] Insurance:MEDICAL CHAMBERLINDOB: [facility] [id number] Hospital Number: Repository [id number] Date:5210-54-77FL [address] [address]RY: 08/04/2017 Tertiary NOT GIVENUNK [place] Insurance:SELF PAY [facility] Number: Effective Repository Date:2017-05-29 06/20/2017 GABY L Primary GABY L [place] [id number] Insurance:MEDICARE CHAMBERLINDOB: [facility] [id number] Number: Repository [address]Bfc: 330 [id number] () Date:2017-05-23 06/20/2017 Secondary GABY L [place] Insurance:MEDICAL CHAMBERLINDOB: [facility] [id number] Hospital Number: Repository [id number] Date:8254-87-04FH[address] [address]JL: 06/20/2017 Tertiary NOT GIVENUNK [place] Insurance:SELF PAY [facility] Number: Effective Repository Date:2017-06-20 05/23/2017 GABY L Primary GABY L [place] [id number] Insurance:MEDICARE CHAMBERLINDOB: [facility] [id number], [place] Number: Repository [address]Duj: 330 [id number] (HP) Date:2017-05-23 05/23/2017 Secondary GABY L [place] Insurance:MEDICAL CHAMBERLINDOB: [facility] [id number] Hospital Number: Repository [id number] Date:1762-80-77PM[address] [address]DN: 05/23/2017 Tertiary NOT GIVENUNK [place] Insurance:SELF PAY [facility] Number: Effective Repository Date:2017-05-23 05/23/2017 GABY Gonzalez Primary GABY Gonzalez [place] [id number] Insurance:MEDICARE CHAMBERLINDOB: [facility] [id number], [place] Number: Repository [address]Tyg: [phone] [id number] 465 (HP) Date:2017-05-04 05/23/2017 Secondary GABY Gonzalez [place] Insurance:MEDICAL CHAMBERLINDOB: [facility] [id number] Hospital Number: Repository [id number] Date:1528-62-57UK[address] [address]LT: 05/23/2017 Tertiary NOT GIVENUNK [place] Insurance:SELF PAY [facility] Number: Effective Repository Date:2017-05-23 05/06/2017 Gaby Gonzalez [facility]:MedicarePol ChamberlinDOB: System [id number] icy Number: Effective [id number] [facility] Date: [place], [place] [address]Pow: (HP) 05/06/2017 Secondary [facility]y [facility] Insurance:MedicarePol ChamberlinDOB: System icy Number: Effective [id number] Repository Date: 05/06/2017 Tertiary Gaby L [facility] Insurance:Medical ChamberlinDOB: [facility] [id number] Repository Number: Effective Date: 05/06/2017 GABY Gonzalez Primary GABY Gonzalez [place] [id number] Insurance:MEDICARE CHAMBERLINDOB: [facility] [id number], [place] Number: Repository [address]Syt: (289) [id number] (HP) Date:2017-05-05 05/06/2017 Secondary GABY L [place] Insurance:MEDICAL CHAMBERLINDOB: [facility] [id number] Hospital Number: Repository [id number] Date:7166-20-35SJ[address] [address]HB: 05/06/2017 Tertiary NOT GIVENUNK [place] Insurance:SELF PAY [facility] Hospital Number: Effective Repository Date:2017-05-06 05/05/2017 GABY L Primary GABY L [place] [id number] Insurance:MEDICARE CHAMBERLINDOB: [facility] [id number] Number: Repository [address]Gne: 330 [id number] () Date:2017-05-05 05/05/2017 Secondary GABY L [place] Insurance:MEDICAL CHAMBERLINDOB: [facility] [id number] Hospital Number: Repository [id number] Date:2420-94-71LU [address] [place] [address]XL: 05/05/2017 Tertiary NOT GIVENUNK [place] Insurance:SELF PAY [facility] Number: Effective Repository Date:2017-05-05 05/05/2017 Gaby L Primary Gaby L [place] [id number] Insurance:MEDICARE ChamberlinDOB: [facility] [id number] Number: Repository [address]Fuo: 330 [id number] () Date:2017-05-05 05/05/2017 Secondary GABY L [place] Insurance:MEDICAL CHAMBERLINDOB: [facility] [id number] Hospital Number: Repository [id number] Date:6005-48-24BQ[address] [address]GS: 05/05/2017 Tertiary NOT GIVENUNK [place] Insurance:SELF PAY [facility] Hospital Number: Effective Repository Date:2017-05-05 05/05/2017 GABY L Primary GABY L [place] [id number] Insurance:MEDICARE CHAMBERLINDOB: [facility] [id number], [place] Number: Repository [address]Iei: 330 [id number] (HP) Date:2017-05-05 05/05/2017 Secondary GABY L [place] Insurance:MEDICAL CHAMBERLINDOB: [facility] [id number] Hospital Number: Repository [id number] Date:8993-96-31KR[address] [address]CW: 05/05/2017 Tertiary NOT GIVENUNK [place] Insurance:SELF PAY [facility] Number: Effective Repository Date:2017-05-05 05/05/2017 GABY L Primary GABY L [place] [id number] Insurance:MEDICARE CHAMBERLINDOB: [facility] [id number], [place] Number: Repository [address]Ryf: 330 [id number] () Date:2017-05-05 05/05/2017 Secondary GABY L [place] Insurance:MEDICAL CHAMBERLINDOB: [facility] [id number] Hospital Number: Repository [id number] Date:0909-08-30WJ[address] [address]LA: 05/05/2017 Tertiary NOT GIVENUNK [place] Insurance:SELF PAY [facility] Hospital Number: Effective Repository Date:2017-05-05 05/03/2017 Gaby L Primary Gaby L [place] [id number] Insurance:MEDICARE ChamberlinDOB: [facility] [id number] [place] Number: Repository [address]Wrx: 330 [id number] (HP) Date:2017-05-03 05/03/2017 Secondary GABY L [place] Insurance:MEDICAL CHAMBERLINDOB: [place] [id number] Hospital Number: Repository [id number] Date:8408-71-74[address], [place] [address]SI: 05/03/2017 Tertiary NOT GIVENUNK [place] Insurance:SELF PAY [facility] Number: Effective Repository Date:2017-05-03 04/28/2017 Gaby L Primary Gaby L [place] [id number] Insurance:MEDICARE ChamberlinDOB: [facility] [id number] [place] Number: Repository [id number]: 330 [id number] (HP) Date:2017-02-15 04/28/2017 Secondary GABY L [place] Insurance:MEDICAL CHAMBERLINDOB: [facility] [id number] Hospital Number: Repository [id number] Date:8710-10-48SS [address] [place] [address]ER: 04/28/2017 Tertiary NOT GIVENUNK [place] Insurance:SELF PAY [facility] Hospital Number: Effective Repository Date:2017-04-28 04/20/2017 Gaby L Primary Gaby L [place] [id number] Insurance:MEDICARE ChamberlinDOB: [facility] [id number] [place] Number: Repository [address]Pdz: 330 [id number] (HP) Date:2017-02-15 04/20/2017 Secondary GABY L [place] Insurance:MEDICAL CHAMBERLINDOB: [facility] [id number] Hospital Number: Repository [id number] Date:5544-37-92GA [address] [place] [address]KN: 04/20/2017 Tertiary NOT GIVENUNK [place] Insurance:SELF PAY [facility] Number: Effective Repository Date:2017-02-28
== END ==
PROVIDERS: Family Provider Family Medicine; PCP Family Medicine; Referring Provider Anesthesiology Pain Medicine; Visit Provider Anesthesiology Pain Medicine
DX: M25.561 Pain in right knee (principal); R22.41 Localized swelling, mass and lump, right lower limb
CPT/HCPCS: 73718

== ENCOUNTER → 2018-05-17 07:18 | Outpatient (CLI) | payer MEDICARE, OTHER, SELFPAY ==
[2018-05-15 10:38] VITALS: BMI 33.6
[2018-05-17 10:39] LABS: ALB/GLOB Ratio 0.9 RATIO (0.9-2.4); AST(SGOT) 15 U/L (15-37); Alanine Aminotransfer ALT/SGPT 21 U/L (13-56); Albumin, Serum 3.7 g/dL (3.2-5.0); Alkaline Phosphatase 37 U/L (45-117); Anion Gap 5 (5-15); BUN 15 mg/dL (7-18); BUN/Creat Ratio 18.2 RATIO (10-20); Calcium,Total 8.9 mg/dL (8.5-10.1); Chloride 101 mmol/L (98-107); Cholesterol 253 mg/dL (200); Creatinine, Serum 0.82 mg/dL (0.55-1.02); EST Glomerular Filtration Rate 72 mL/min (>60); Est Glom Filt Rate - Afr Amer 87 mL/min (>60); Globulin 3.9 g/dL (2.2-4.2); Glucose 104 mg/dL (74-106); High Density Lipoprotein 59 mg/dL; Potassium 3.9 mmol/L (3.5-5.1); Protein, Total 7.6 g/dL (6.4-8.2); Sodium Level 138 mmol/L (136-145); Triglycerides 183 mg/dL; Very Low Density Lipoprotein 37 mg/dL (5-40)
[2018-05-17 10:44] LABS: Microalbumin,Random Urine < 5.0 mg/L (NO RANGE EST.)
[2018-05-17 11:26] LABS: Hemoglobin A1c 6.3 % (4.2-6.3)
== END ==
PROVIDERS: Family Provider Family Medicine; PCP Family Medicine; Referring Provider Nurse Practitioner; Visit Provider Nurse Practitioner
DX: E11.9 Type 2 diabetes mellitus without complications (principal); I10 Essential (primary) hypertension
CPT/HCPCS: 36415; 80053; 80061; 82043; 82570; 83036

== ENCOUNTER → 2020-06-17 07:10 | Outpatient (CLI) | payer MEDICARE, OTHER, SELFPAY ==
[2018-05-15 10:38] VITALS: BMI 33.6
[2020-06-17 10:17] LABS: Absolute Neutrophil Count 4.8 X10^3/uL (2.0-7.7); Basophil# 0.05 X10^3/uL; Basophil% 0.6 % (0-1); Eosinophil# 0.12 X10^3/uL; Eosinophils% 1.4 % (0-5); Hematocrit 32.1 % (37-47); Hemoglobin 8.5 g/dL (12.0-15.0); Lymphocyte % 31.9 % (19-41); Mean Corp Hgb Conc 26.5 g/dL (32-36); Mean Corpuscular Hgb 19.3 pg (27.0-32.0); Mean Platelet Vol. 10.2 fl (6.2-12.0); Monocyte# 0.95 X10^3/uL; Monocyte% 10.8 % (0-10); NRBC Flagged by Analyzer 0 % (0-5); Neutrophil # 4.83 X10^3/uL (2.7-7.7); Neutrophil % 54.8 % (47-70); Platelet Count 404 K/mm3 (150-450); RBC Distribution Width CV 19.5 % (11.6-14.6); RBC Distribution Width SD 50.4 fl (35.1-43.9); White Blood Count 8.8 K/mm3 (4.4-11.0)
[2020-06-17 10:34] LABS: AST(SGOT) 10 U/L (15-37); Alanine Aminotransfer ALT/SGPT 14 U/L (13-56); Albumin, Serum 3.7 g/dL (3.2-5.0); Alkaline Phosphatase 32 U/L (45-117); Anion Gap 7 (5-15); BUN 15 mg/dL (7-18); BUN/Creat Ratio 15.9 RATIO (10-20); Chloride 97 mmol/L (98-107); Cholesterol 222 mg/dL (200); Creatinine, Serum 0.94 mg/dL (0.55-1.02); EST Glomerular Filtration Rate 62 mL/min (>60); Est Glom Filt Rate - Afr Amer 75 mL/min (>60); Globulin 3.8 g/dL (2.2-4.2); Glucose 165 mg/dL (74-106); High Density Lipoprotein 55 mg/dL; Potassium 3.8 mmol/L (3.5-5.1); Protein, Total 7.5 g/dL (6.4-8.2); Sodium Level 134 mmol/L (136-145); Triglycerides 172 mg/dL; Very Low Density Lipoprotein 34 mg/dL (5-40)
[2020-06-17 11:36] LABS: Microalbumin,Random Urine 8.3 mg/L (NO RANGE EST.); Microalbumin:Creatinine Ratio 8.9 mg/g CRE (<30 mg/g CRE)
== END ==
PROVIDERS: PCP Family Medicine; Referring Provider Family Medicine; Visit Provider Family Medicine
DX: E11.9 Type 2 diabetes mellitus without complications (principal); I10 Essential (primary) hypertension; K26.6 Chronic or unspecified duodenal ulcer with both hemorrhage and perforation; E78.00 Pure hypercholesterolemia, unspecified
CPT/HCPCS: 36415; 80053; 80061; 82043; 82570; 85025

== ENCOUNTER → 2021-08-27 | Outpatient (CLI) | payer MEDICARE, OTHER, SELFPAY ==
[2021-08-27 13:11] LABS: Thyroid Stim Hormone (TSH) 2.06 uIU/mL (0.358-3.74); Vitamin D,25 Hydroxy 13.1 ng/mL
== END | disposition home or self-care (01) ==
LOC: BIMLAB 10:26
PROVIDERS: PCP Family Medicine; Referring Provider Nurse Practitioner Family; Visit Provider Nurse Practitioner Family
DX: E83.51 Hypocalcemia (principal)
CPT/HCPCS: 36415; 82306; 84443

== ENCOUNTER → 2022-05-12 | Outpatient (CLI) | payer MEDICARE, OTHER, SELFPAY ==
[2022-05-12 10:08] LABS: Absolute Neutrophil Count 4.1 X10^3/uL (2.0-7.7); Basophil# 0.05 X10^3/uL; Basophil% 0.6 % (0-1); Eosinophil# 0.11 X10^3/uL; Eosinophils% 1.4 % (0-5); Hematocrit 45.9 % (37-47); Hemoglobin 15.2 g/dL (12.0-15.0); Lymphocyte % 35.9 % (19-41); Mean Corp Hgb Conc 33.1 g/dL (32-36); Mean Corpuscular Hgb 31.7 pg (27.0-32.0); Mean Corpuscular Volume 95.6 fL (81-99); Mean Platelet Vol. 10.6 fl (6.2-12.0); Monocyte# 0.89 X10^3/uL; NRBC Flagged by Analyzer 0 % (0-5); Neutrophil # 4.11 X10^3/uL (2.7-7.7); Platelet Count 223 K/mm3 (150-450); RBC Distribution Width CV 12.6 % (11.6-14.6); RBC Distribution Width SD 44.6 fl (35.1-43.9); White Blood Count 8.1 K/mm3 (4.4-11.0)
[2022-05-12 10:26] LABS: AST(SGOT) 13 U/L (15-37); Alanine Aminotransfer ALT/SGPT 21 U/L (13-56); Albumin, Serum 3.4 g/dL (3.2-5.0); Alkaline Phosphatase 33 U/L (45-117); Bilirubin, Direct 0.09 mg/dL (0.00-0.30); Cholesterol 263 mg/dL (200); High Density Lipoprotein 53 mg/dL; Protein, Total 7.4 g/dL (6.4-8.2); Triglycerides 181 mg/dL; Very Low Density Lipoprotein 36 mg/dL (5-40)
== END | disposition home or self-care (01) ==
LOC: MTLAB 07:04
PROVIDERS: PCP Family Medicine; Referring Provider Family Medicine; Visit Provider Family Medicine
DX: E78.00 Pure hypercholesterolemia, unspecified (principal); K26.6 Chronic or unspecified duodenal ulcer with both hemorrhage and perforation
CPT/HCPCS: 36415; 80061; 80076; 85025

== ENCOUNTER → 2022-08-03 | Outpatient (CLI) | payer MEDICARE, OTHER, SELFPAY ==
[2022-08-03 12:31] LABS: Absolute Lymphocyte Count 1.38 X10^3/uL (0.83-4.51); Absolute Neutrophil Count 5.5 X10^3/uL (2.0-7.7); Basophil# 0.04 X10^3/uL; Basophil% 0.5 % (0-1); Eosinophil# 0.04 X10^3/uL; Eosinophils% 0.5 % (0-5); Hematocrit 47.1 % (37-47); Hemoglobin 15.5 g/dL (12.0-15.0); Lymphocyte # 1.38 X10^3/ul (0.83-4.51); Lymphocyte % 17.9 % (19-41); Mean Corp Hgb Conc 32.9 g/dL (32-36); Mean Corpuscular Hgb 31.3 pg (27.0-32.0); Monocyte# 0.68 X10^3/uL; Monocyte% 8.8 % (0-10); NRBC Flagged by Analyzer 0 % (0-5); Neutrophil # 5.54 X10^3/uL (2.7-7.7); Platelet Count 222 K/mm3 (150-450); RBC Distribution Width CV 12.6 % (11.6-14.6); RBC Distribution Width SD 43.8 fl (35.1-43.9); Red Blood Count 4.96 M/mm3 (4.2-5.4); White Blood Count 7.7 K/mm3 (4.4-11.0)
[2022-08-03 13:14] LABS: Microalbumin,Random Urine 5.6 mg/L (NO RANGE EST.)
[2022-08-03 13:17] LABS: Vitamin D,25 Hydroxy 65.1 ng/mL
[2022-08-03 13:32] LABS: ALB/GLOB Ratio 0.9 RATIO (0.9-2.4); AST(SGOT) 15 U/L (15-37); Alanine Aminotransfer ALT/SGPT 23 U/L (13-56); Albumin, Serum 3.5 g/dL (3.2-5.0); Alkaline Phosphatase 32 U/L (45-117); Anion Gap 6 (5-15); BUN 12 mg/dL (7-18); BUN/Creat Ratio 14.1 RATIO (10-20); Calcium,Total 9.5 mg/dL (8.5-10.1); Chloride 98 mmol/L (98-107); Creatinine, Serum 0.85 mg/dL (0.55-1.02); EST Glomerular Filtration Rate 69 mL/min (>60); Est Glom Filt Rate - Afr Amer 84 mL/min (>60); Globulin 4.1 g/dL (2.2-4.2); Glucose 196 mg/dL (74-106); Potassium 4.1 mmol/L (3.5-5.1); Protein, Total 7.6 g/dL (6.4-8.2); Sodium Level 135 mmol/L (136-145); Thyroid Stim Hormone (TSH) 2.11 uIU/mL (0.358-3.74)
== END | disposition home or self-care (01) ==
LOC: BFHLAB 11:10
PROVIDERS: PCP Family Medicine; Referring Provider Family Medicine; Visit Provider Family Medicine
DX: E11.9 Type 2 diabetes mellitus without complications (principal); I10 Essential (primary) hypertension; D50.9 Iron deficiency anemia, unspecified; E55.9 Vitamin D deficiency, unspecified
CPT/HCPCS: 36415; 80053; 82043; 82306; 82570; 84443; 85025

== ENCOUNTER 2022-09-01 16:03 | Emergency (ER) | payer MEDICARE, OTHER, SELFPAY ==
[2022-09-01 16:03] VITALS: BP 146/81; PULSE 118; RESP 18; TEMP 35.5; O2SAT 93; BMI 34.9
--- NOTE | 2022-09-01 16:35 | RAD_ITS ---
STUDY: XR Wrist Min 3 Views REASON FOR EXAM: Female, 77 years old. FALL/INJURY TECHNIQUE: XR Wrist Min 3 Views LEFT COMPARISON: None FINDINGS: There is demineralization of the radius and ulna. There is degenerative arthrosis of the radiocarpal articulation. Normal distal radioulnar articulation. There is demineralization of the carpal bones. There is degenerative arthrosis of the carpal articulations. There is degenerative arthrosis of the carpometacarpal articulation of the thumb. Normal second through fifth carpometacarpal articulations. There are no acute findings of the visualized metacarpal bones. Comminuted impacted distal radial fracture with articular extension. There is non-specific soft tissue swelling. RAD/Wrist min 3 Views IMPRESSION: Comminuted impacted distal radial fracture with articular extension. There is non-specific soft tissue swelling. Electronically Signed: London Sanchez MD at 16:49 EDT ,
--- NOTE | 2022-09-01 17:20 | ED.VIS.FALL ---
HPI HPI - Fall History of Present Illness Chief Complaint: Fall PFSH PFSH Medical History Aneurysm Anxiety and depression Arthritis Back problem Carpal tunnel syndrome Cataracts, bilateral Diabetes type 2, controlled H/O blood clots h/o blood transfusions HTN (hypertension) Hyperlipidemia Neuropathy Stomach ulcer Home Medications citalopram 20 mg tablet 20 mg PO DAILY depression 05/03/17 [History Last Taken 05/04/17 08:00] gabapentin 100 mg capsule 100 mg PO BID nerve pain 05/03/17 [History Last Taken 05/04/17 15:00] hydrochlorothiazide 12.5 mg capsule 12.5 mg PO DAILY heart 05/03/17 [History Last Taken 05/04/17 15:00] lorazepam 0.5 mg tablet 0.5 mg PO TID blood pressure 05/03/17 [History Last Taken 05/04/17 15:00] potassium chloride 10 mEq capsule,extended release 10 meq PO DAILY blood pressure 05/03/17 [History Last Taken 05/04/17 15:00] acetaminophen 500 mg capsule 500 mg PO Q4H PRN 05/23/17 [History Last Taken Unknown] pantoprazole 40 mg tablet,delayed release 40 mg PO BID 05/23/17 [History Last Taken Unknown] sucralfate 1 gram tablet 1 g PO Q6H 05/23/17 [History Last Taken Unknown] pen needle, diabetic 32 gauge x 5/32 (BD Ultra-Fine Yi Pen Needle) #50 ea 09/02/21 [Rx Last Taken Unknown] Baltazar Maya U-100 Insulin 100 unit/mL (3 mL) subcutaneous (insulin glargine) See Rx Instructions subcut BID #15 mL 11/26/21 [Rx Last Taken Unknown] glimepiride 1 mg tablet 1 mg PO BID e11.9 #180 tabs 11/26/21 [Rx Last Taken Unknown] metformin 500 mg tablet,extended release 24 hr 500 mg PO BID #180 tabs 11/26/21 [Rx Last Taken Unknown] rosuvastatin 5 mg tablet 5 mg PO .twice a week #24 tabs 11/26/21 [Rx Last Taken Unknown] cholecalciferol (vitamin D3) 1,250 mcg (50,000 unit) capsule 1,250 mcg PO QWEEK #12 caps 12/13/21 [Rx Last Taken Unknown] metoprolol tartrate 100 mg tablet 100 mg PO .x1 #2 tabs 07/01/22 [Rx Last Taken Unknown] lisinopril 10 mg tablet 20 mg (2 x 10 mg) PO DAILY #90 tabs 07/08/22 [Rx Last Taken Unknown] oxycodone-acetaminophen 5 mg-325 mg tablet (Percocet) 1 tab PO Q6H PRN pain 5 days #20 tabs 09/01/22 [Rx Last Taken Unknown] Allergy/AdvReac Type Severity Reaction Status Date / Time Qvpcegi-[id number] Reductase Allergy Severe Unknown Verified 09/01/22 16:05 Inhibitor [Hjnoawx-Irv-Nhu Reductase Inhibitor] Family History Father Arthritis Hypertension Mother Hypertension Brother Hypertension Hyperlipidemia Sister Hyperlipidemia Hypertension Surgical History H/O spinal fusion History of cataract surgery Social History Smoking Status: Light Smoker (<10/day) alcohol intake: never substance use type: does not use EXAM Physical Exam Const Vital Signs: 09/01/22 16:03 09/01/22 17:12 Temperature 96 F L Temperature Source Temporal Pulse Rate 118 H Respiratory Rate 18 Respiratory Effort Normal Respiratory Depth Normal Respiratory Pattern Normal Blood Pressure 146/81 H Blood Pressure Mean 102 Pulse Ox 93 Oxygen Delivery Method Room Air Room Air [employer] MDM Narrative Medical decision making narrative: HISTORY OF PRESENT ILLNESS: 77-year-old female here with left wrist pain after fall. Denies head trauma. No she is on the left wrist and has constant severe pain as result. REVIEW OF SYSTEMS: Pertinent positives: Left wrist pain Pertinent negatives: Numbness, tingling, loss sensation PHYSICAL EXAM: Nursing triage notes reviewed, Vital signs reviewed Constitutional: please see mdm HENT: MMM Eyes: Pupils equal round and reactive to light, Extraocular muscles intact Neck: No stridor, no JVD, full neck ROM Lungs: Clear to auscultation, No wheezing or rales. No increased work of breathing, no conversational dyspnea, no accessory muscle use, no nasal flaring. No respiratory distress noted Heart: Regular rate and rhythm, No murmurs, No rubs and No gallops, 2+ distal pulses (radial, femoral, posterior tibial) in all extremities Abdomen: Soft, there is no tenderness, rigidity, rebound or guarding, no obvious peritoneal signs, no palpable pulsatile abdominal masses, no auscultated abdominal bruit : No CVAT Extremities: No edema, obvious left distal wrist deformity Neuro: Intact 5/5 strength with ok sign (median), intact finger abduction (ulnar) intact wrist extension (radial n). Intact sensation in the radial, ulnar, and median nerve distributions. Skin: No rash or lesions noted, no evidence of open fracture MEDICAL DECISION MAKING: Chief Complaint: [Left wrist pain after fall External records reviewed: No recent advanced imaging of the left wrist Factors affecting care: Hyperlipidemia, hypertension, tobacco abuse Social determinants of health: Elderly History obtained from others: The patient's Consults: none ALL IMAGES (IF OBTAINED) HAVE BEEN PERSONALLY REVIEWED AND INTERPRETED BY MYSELF. MDM Narrative: Patient was hemodynamically stable, afebrile, nontoxic-appearing. Exam without neurovascular, his left upper extremity I considered the following differential diagnosis: Wrist fracture, dislocation, contusion] X-ray by my read showed evidence of a left distal radius fracture. Radiologist agrees with my interpretation. Patient was placed in a splint. Patient was given narcotic pain medicine for home-going. She is given instructions to follow-up with orthopedic surgery. She is given strict return precautions. The patient and/or family, caregivers express understanding. The patient and/or family, caregivers agrees with the plan. Total critical care time today provided was at least 0 minutes. This excludes separately billable procedures. Critical care time (if documented) is secondary to the patient having high probability of clinically significant/life threatening deterioration in the patient's condition which required my urgent intervention. Shared decision making: I will have a discussion with the patient and or visitors regarding risk/benefits of further testing or admission. They will be made aware of of the risk/benefits inherent in this decision they will be given the opportunity to voice understanding. Radiography Diagnostic Testing: Clinical Impression(s) from Imaging Studies Wrist X-Ray 09/01/22 16:35 IMPRESSION: Comminuted impacted distal radial fracture with articular extension. There is non-specific soft tissue swelling. Electronically Signed: London Sanchez MD at 16:49 EDT , I personally reviewed the patient's x-ray noted distal radius deformity concerning for fracture. Procedures Upper Extremity Splints Upper Extremity Splint: Orthoglass Splint Fabrication: Pre-fabricated Location: Left Discharge Plan Triage Chief Complaint: Fall ED Provider: Orlin Bello Dx/Rx/DC Orders Instructions: Wrist Fracture Prescriptions: New oxycodone-acetaminophen [Percocet] 5-325 mg tablet 1 tab PO Q6H PRN (Reason: pain) 5 Days Qty: 20 0RF No Action sucralfate 1 gram tablet 1 g PO Q6H pantoprazole 40 mg tablet,delayed release (DR/EC) 40 mg PO BID acetaminophen 500 mg capsule 500 mg PO Q4H PRN insulin glargine [Basaglar KwikPen U-100 Insulin] 100 unit/mL (3 mL) insulin pen See Rx Instructions subcut BID Qty: 15 2RF Rx Instructions: 18 am 7 pm subcutaneously twice a day; metformin 500 mg tablet extended release 24 hr 500 mg PO BID Qty: 180 1RF glimepiride 1 mg tablet 1 mg PO BID Qty: 180 0RF Rx Instructions: administer with lunch . Begin with one half tablet, increase to one tablet if needed. rosuvastatin 5 mg tablet 5 mg PO .twice a week Qty: 24 1RF potassium chloride 10 MEQ capsule, extended release 10 meq PO DAILY citalopram 20 MG tablet 20 mg PO DAILY lorazepam 0.5 MG tablet 0.5 mg PO TID hydrochlorothiazide 12.5 MG capsule 12.5 mg PO DAILY gabapentin 100 MG capsule 100 mg PO BID (DME) pen needle, diabetic [BD Ultra-Fine Yi Pen Needle] 32 gauge x 5/32 needle See Rx Instructions .ROUTE .MEDSUPPLY Qty: 50 5RF Rx Instructions: daily cholecalciferol (vitamin D3) 1,250 mcg (50,000 unit) capsule 1,250 mcg PO QWEEK Qty: 12 0RF metoprolol tartrate 100 mg tablet 100 mg PO .x1 Qty: 2 0RF Rx Instructions: Take one tablet ONE HOUR PRIOR to calcium scoring test. Take second tablet along with you to the test. Do not take dose unless instructed by nursing. lisinopril 10 mg tablet 20 mg PO DAILY Qty: 90 1RF Primary Care Provider: Edna Lazo Referrals: Sarwat Castro MD [Med Staff - Active Staff] - Activity Restrictions/Additional Instructions: Thank you for trusting us with your care today! Please take Tylenol (2 pills, 650 mg), ibuprofen (2 pills, 400 mg) every 6 hours as needed for pain and fever control. If this does not control your pain please take Percocet. Do not take Percocet and Tylenol together as Percocet contains Tylenol. Please return to the emergency department if your symptoms change or worsen. Specifically you develop discoloration of your injured extremity, coolness to touch, inability to move or feel, increasing pain. Please follow with your orthopedic surgery (Dr. Castro) for further outpatient evaluation and management. Disposition Disposition: Home, Self Care Discharge Date/Time: 09/01/22 18:04
[2022-09-01] MEDS: Ibuprofen 200 MG Tablet 400 MG PO (17:53)
[2022-09-01] MEDS: Oxycodone/Apap 5/325 Tablet PO (17:54)
== END 2022-09-01 18:04 | disposition home or self-care (01) ==
PROVIDERS: Emergency Provider Emergency Medicine; PCP Family Medicine; Visit Provider Emergency Medicine
DX: S52.502A Unspecified fracture of the lower end of left radius, initial encounter for closed fracture (principal); E11.40 Type 2 diabetes mellitus with diabetic neuropathy, unspecified; Z79.4 Long term (current) use of insulin; E78.5 Hyperlipidemia, unspecified; I10 Essential (primary) hypertension; F17.200 Nicotine dependence, unspecified, uncomplicated; Z79.899 Other long term (current) drug therapy; F41.8 Other specified anxiety disorders; Z79.84 Long term (current) use of oral hypoglycemic drugs; W19.XXXA Unspecified fall, initial encounter
CPT/HCPCS: 29125; 73110; 99284

== ENCOUNTER → 2023-08-11 | Outpatient (CLI) | payer MEDICARE, OTHER, SELFPAY ==
[2023-08-11 12:28] LABS: Absolute Lymphocyte Count 1.62 X10^3/uL (0.83-4.51); Absolute Neutrophil Count 4.1 X10^3/uL (2.0-7.7); Basophil# 0.02 X10^3/uL; Basophil% 0.3 % (0-1); Eosinophil# 0.06 X10^3/uL; Eosinophils% 0.9 % (0-5); Hematocrit 40.3 % (37-47); Hemoglobin 13.1 g/dL (12.0-15.0); Lymphocyte # 1.62 X10^3/ul (0.83-4.51); Lymphocyte % 24.9 % (19-41); Mean Corp Hgb Conc 32.5 g/dL (32-36); Mean Corpuscular Hgb 30.5 pg (27.0-32.0); Mean Corpuscular Volume 93.7 fL (81-99); Monocyte# 0.71 X10^3/uL; Monocyte% 10.9 % (0-10); NRBC Flagged by Analyzer 0 % (0-5); Neutrophil # 4.07 X10^3/uL (2.7-7.7); Neutrophil % 62.7 % (47-70); Platelet Count 218 K/mm3 (150-450); RBC Distribution Width CV 12.6 % (11.6-14.6); RBC Distribution Width SD 42.9 fl (35.1-43.9); White Blood Count 6.5 K/mm3 (4.4-11.0)
[2023-08-11 12:50] LABS: ALB/GLOB Ratio 0.9 RATIO (0.9-2.4); AST(SGOT) 20 U/L (15-37); Alanine Aminotransfer ALT/SGPT 19 U/L (13-56); Albumin, Serum 3.5 g/dL (3.2-5.0); Alkaline Phosphatase 30 U/L (45-117); Anion Gap 8 (5-15); BUN 11 mg/dL (7-18); BUN/Creat Ratio 11.4 RATIO (10-20); Calcium,Total 9.3 mg/dL (8.5-10.1); Chloride 97 mmol/L (98-107); Creatinine, Serum 0.97 mg/dL (0.55-1.02); EST Glomerular Filtration Rate 59 mL/min (>60); Est Glom Filt Rate - Afr Amer 72 mL/min (>60); Globulin 3.8 g/dL (2.2-4.2); Glucose 191 mg/dL (74-106); Potassium 4.1 mmol/L (3.5-5.1); Protein, Total 7.3 g/dL (6.4-8.2); Sodium Level 135 mmol/L (136-145)
[2023-08-11 12:52] LABS: Vitamin D,25 Hydroxy 22.1 ng/mL
[2023-08-11 12:53] LABS: Microalbumin,Random Urine < 5.0 mg/L (NO RANGE EST.)
== END | disposition home or self-care (01) ==
LOC: BFHLAB 10:09
PROVIDERS: PCP Family Medicine; Referring Provider Family Medicine; Visit Provider Family Medicine
DX: I10 Essential (primary) hypertension (principal); E11.9 Type 2 diabetes mellitus without complications; D50.9 Iron deficiency anemia, unspecified; R00.0 Tachycardia, unspecified; E55.9 Vitamin D deficiency, unspecified
CPT/HCPCS: 36415; 80053; 82043; 82306; 82570; 85025

== ENCOUNTER → 2024-07-27 | Outpatient (CLI) | payer MEDICARE, OTHER, SELFPAY ==
[2024-07-27 10:55] LABS: Absolute Lymphocyte Count 2.87 X10^3/uL (0.83-4.51); Absolute Neutrophil Count 3.4 X10^3/uL (2.0-7.7); Basophil# 0.04 X10^3/uL; Basophil% 0.5 % (0-1); Eosinophil# 0.15 X10^3/uL; Eosinophils% 2.1 % (0-5); Hematocrit 43.7 % (37-47); Hemoglobin 14.1 g/dL (12.0-15.0); Lymphocyte # 2.87 X10^3/ul (0.83-4.51); Lymphocyte % 39.3 % (19-41); Mean Corp Hgb Conc 32.3 g/dL (32-36); Mean Corpuscular Hgb 30.7 pg (27.0-32.0); Mean Corpuscular Volume 95.2 fL (81-99); Mean Platelet Vol. 10.6 fl (6.2-12.0); Monocyte# 0.88 X10^3/uL; Monocyte% 12.1 % (0-10); NRBC Flagged by Analyzer 0 % (0-5); Neutrophil # 3.35 X10^3/uL (2.7-7.7); Neutrophil % 45.9 % (47-70); Platelet Count 243 K/mm3 (150-450); RBC Distribution Width CV 12.8 % (11.6-14.6); RBC Distribution Width SD 44.5 fl (35.1-43.9); Red Blood Count 4.59 M/mm3 (4.2-5.4); White Blood Count 7.3 K/mm3 (4.4-11.0)
[2024-07-27 11:30] LABS: ALB/GLOB Ratio 1.3 RATIO (0.9-2.4); AST(SGOT) 18 U/L (<=31); Alanine Aminotransfer ALT/SGPT 15 U/L (<=34); Albumin, Serum 4.2 g/dL (3.4-4.8); Alkaline Phosphatase 36 U/L (35-104); Anion Gap 12 (5-15); BUN 19 mg/dL (4-19); BUN/Creat Ratio 19.5 RATIO (10-20); Calcium,Total 9.6 mg/dL (7.6-11.0); Carbon Dioxide 28.7 mmol/L (21.0-32.0); Chloride 97 mmol/L (98-108); Cholesterol 246 mg/dL (<=200); Creatinine, Serum 0.97 mg/dL (0.70-1.20); EST Glomerular Filtration Rate 60 (>60); Globulin 3.2 g/dL (2.2-4.2); Glucose 121 mg/dL (70-99); High Density Lipoprotein 54 mg/dL; Low Density Lipoprotein Calc. 155 mg/dL; Potassium 4.3 mmol/L (3.3-5.1); Protein, Total 7.3 g/dL (5.9-8.4); Sodium Level 137 mmol/L (133-145); Total Bilirubin 0.31 mg/dL (0.00-1.30); Triglycerides 187 mg/dL; Very Low Density Lipoprotein 37 mg/dL (5-40)
[2024-07-27 11:31] LABS: Microalbumin,Random Urine < 12.0 mg/L (NO RANGE EST.); Microalbumin:Creatinine Ratio UNABLE TO CALCULATE mg/g CRE
== END | disposition home or self-care (01) ==
PROVIDERS: PCP Family Medicine; Referring Provider Nurse Practitioner Family; Visit Provider Nurse Practitioner Family
DX: E11.8 Type 2 diabetes mellitus with unspecified complications (principal)
CPT/HCPCS: 36415; 80053; 80061; 82043; 82570; 84443; 85025